=== PATIENT | male | born 1955 | race Caucasian/White ===

== ENCOUNTER 2017-06-13 10:43 | Day surgery (SDC) | payer MEDICARE, MEDICAID, SELFPAY ==
--- NOTE | 2017-06-13 | EGD_PTH ---
PATIENT: PAULA YUSUF LOC: EN U#:[id number] AGE/SX: 62/M ROOM: RE06/13/[address]: Dr. Steven Hansen MD : 1955 BED: DIS: 06/13/2017 SPEC #: [id number] RECD: 06/13/17 14:57 STATUS: CHANDANA ELIDIA #: [id number] JONY: 06/13/17 00:[address]: Steven Hansen DEPT: SURGICAL PATHOLOGY RECD BY: Vick Man ENTERED: 06/13/17 14:57 SP TYPE: EGD BIOPSY OT DR: Dr. Antoinette Pringle, DO Tissues: A - Duodenum, NOS B - Gastric mucous membrane C - Gastric mucous membrane D - Esophageal mucous membrane Procedures: Special Stain Group I Surgery Specimen Level IV GMS Stain (control) HEADER OPERATION: EGD with biopsy PRE-OP DIAGNOSIS: Weight loss, vomiting, anemia TISSUE SUBMITTED: A ? Duodenal biopsy, B ? Antral biopsy, C ? GE junction biopsy, D ? Mid esophagus biopsy MICROSCOPIC DIAGNOSIS A. Duodenal biopsy: Fragments of small intestinal mucosa, no pathologic diagnosis. B. Antral biopsy: Chronic active gastritis. See comment. C. GE junction, biopsy: Fragments of squamous epithelium, no pathologic diagnosis. D. Mid esophagus, biopsy: Fragments of squamous epithelium with acute inflammation. Special stain for fungi is negative for organisms; matched control is appropriate. SJ:saranya 06/14/17 COMMENT B. The results of immunohistochemistry for Helicobacter pylori will be reported separately ([id number]). MICROSCOPIC DESCRIPTION Slides are reviewed. GROSS DESCRIPTION A - Received in fixative is one container labeled with the patient's name and designated duodenal biopsy. The specimen consists of two irregular fragments of light camargo soft tissue that in aggregate measure 0.5 x 0.3 x . cm. The specimen is totally submitted in one cassette. B - Received in fixative is one container labeled with the patient's name and designated antral biopsy. The specimen consists of one irregular fragment of light camargo soft tissue that measures 0.3 x 0.3 x 0.1 cm. The specimen is totally submitted in one cassette. C - Received in fixative is one container labeled with the patient's name and designated GE junction biopsy. The specimen consists of two irregular fragments of light camargo soft tissue that in aggregate measure 0.5 x 0.2 x 0.1 cm. The specimen is totally submitted in one cassette. D - Received in fixative is one container labeled with the patient's name and designated mid esophagus biopsy. The specimen consists of two irregular fragments of light camargo soft tissue that in aggregate measure 0.5 x 0.3 x 0.1 cm. The specimen is totally submitted in one cassette. / SJ:rg 06/13/17 TC:2 CPT: 23887 x4, 81991
--- NOTE | 2017-06-13 | IMM_PTH ---
PATIENT: PAULA YUSUF LOC: EN U#:[id number] AGE/SX: 62/M ROOM: RE06/13/[address]: Dr. Steven Hansen MD : 1955 BED: DIS: 06/13/2017 SPEC #: [id number] RECD: 06/14/17 10:56 STATUS: CHANDANA REQ #: [id number] JONY: 06/13/17 00:[address]: Steven Hansen DEPT: IMMUNOHISTOCHEMISTRY RECD BY: Sandee Godfrey ENTERED: 06/14/17 10:57 SP TYPE: IMMUNO OTHR DR: Dr. Antoinette Pringle, DO Tissues: B - Stomach, NOS Procedures: H Pylori (initial) PHYSICIAN & INSTITUTION [place] [address] SPECIMEN INFORMATION: Tissue Source: B ? Antral biopsy Clinical Info: Weight loss, vomiting, anemia Specimen Number: [id number] CPT code: 76379 METHODOLOGY: Deparaffinized sections of prefer/formalin-fixed tissue or PAP/DQ stained slides are incubated with monoclonal/polyclonal antibodies/oligonucleotide probes. Localization is made via biotin free immunoperoxidase method. Appropriate controls are performed and reacted as expected. Results on target cell population are indicated in the following table: RESULTS: ANTIBODY / CLONE RESULT Block B H Pylori (polyclonal) negative These tests were developed and their performance characteristics determined by [facility]. They may not have been cleared or approved by the [place]. Food and Drug Administration. The FDA has determined that such clearance or approval is not necessary. INTERPRETATION: B. Antral biopsy: Negative for Helicobacter pylori organisms. SJ:saranya 06/17/17
[2017-06-13 11:07] VITALS: BP 108/74; PULSE 79; RESP 18; TEMP 36.6; O2SAT 100; BMI 24.0
[2017-06-13 12:29] VITALS: BP 108/74; BP 96/64; PULSE 78; RESP 16; TEMP 37.2; O2SAT 98
[2017-06-13 12:35] VITALS: BP 108/74; BP 93/62; PULSE 76; RESP 18; O2SAT 98
[2017-06-13 12:40] VITALS: BP 108/74; BP 97/72; PULSE 80; RESP 18; O2SAT 99
[2017-06-13 12:45] VITALS: BP 108/74; BP 99/70; PULSE 81; RESP 18; TEMP 37.3; O2SAT 99
[2017-06-13 12:52] LABS: Absolute Lymphocyte Count 0.59 X10^3/ul (0.83-4.51); Absolute Neutrophil Count 7.6 X10^3/uL (2.0-7.7); Basophil# 0.06 X10^3/uL; Basophil% 0.7 % (0-1); Eosinophil# 0.01 X10^3/uL; Eosinophils% 0.1 % (0-5); Hematocrit 33.9 % (40-54); Hemoglobin 11.7 g/dl (13.0-16.5); Lymphocyte # 0.59 X10^3/ul (4.0); Lymphocyte % 6.4 % (19-41); Mean Corp Hgb Conc 34.5 g/gl (32-36); Mean Corpuscular Hgb 32.8 pg (27.0-32.0); Mean Platelet Vol. 8.9 fl (6.2-12.0); Monocyte# 0.89 X10^3/uL; Monocyte% 9.7 % (0-10); Neutrophil # 7.61 X10^3/uL (2.7-7.7); Neutrophil % 82.9 % (47-70); Platelet Count 418 K/mm3 (150-450); RBC Distribution Width CV 15.9 % (11.6-14.6); RBC Distribution Width SD 52.6 fl (35.1-43.9); Red Blood Count 3.57 M/mm3 (4.6-6.2); White Blood Count 9.2 K/mm3 (4.4-11.0)
[2017-06-13 12:55] LABS: Differential Indicated SCAN CRITERIA MET; POSITIVE COUNT NO; POSITIVE DIFFERENTIAL YES; POSITIVE MORPHOLOGY NO
--- NOTE | 2017-06-13 13:08 | OP.PCM_ITS ---
Report of Operation Date of Procedure: 06/13/17 Pre-Operative Diagnosis: vomiting, weight loss Post-Operative Diagnosis: mild gastritis, otherwise normal, normal colonoscopy Surgery/Procedure Performed:: EGD with biopsy, colonoscopy music library assistant: None Type of Anesthesia:: MAC Specimen's removed: jejunum, gastric, distal esophagus, mild esophagus Description of Procedure: The patient was brought to the endoscopy suite. Sign in was performed verifying patient, site, planned procedure, critical nursing information, the patient was monitored with cardiac, pulse oximetric, and blood pressure monitoring devices. Monitored anesthetic care was provided for sedation. Following IV sedation and after the oropharynx was sprayed with Cetacaine spray , a video gastroscope was inserted in the oropharynx and advanced down the esophagus without difficulty. The scope was advanced through the stomach, through the pylorus through the duodenum to the proximal jejunum. the jejunum was unremarkable. Biopsies obtained to evaluate for the possibility of celiac disease. The duodenum was unremarkable. The stomach demonstrated mild gastritis. Biopsies were obtained for H. pylori and pathology area as the scope was withdrawn, the GE junction appeared unremarkable. The mid esophagus was unremarkable. Biopsies obtained to rule out eosinophilic esophagitis. The patient was positioned for colonoscopy. A digital rectal exam was performed which revealed stool in the vault The video colonoscope was inserted and advanced to the cecum as verified by the ileocecal valve, cecal base anatomic features and palpation. there was actually some liquid stool throughout which made complete visualization impaired , but overall there were no colonic abnormalities noted. The video colonoscope was retroflexed and this appeared unremarkable. The patient tolerated the procedure well and was brought to recovery in stable condition
[2017-06-13 13:17] VITALS: BP 108/74
[2017-06-13 13:19] LABS: ALB/GLOB Ratio 0.7 RATIO (0.9-2.4); AST(SGOT) 17 U/L (15-37); Alanine Aminotransfer ALT/SGPT 13 U/L (16-61); Albumin, Serum 2.6 g/dL (3.2-5.0); Alkaline Phosphatase 84 U/L (45-117); Anion Gap 8 (5-15); BUN 14 mg/dL (7-18); BUN/Creat Ratio 14.8 RATIO (10-20); Calcium,Total 8.2 mg/dL (8.5-10.1); Chloride 98 mmol/L (98-107); Creatinine, Serum 0.94 mg/dL (0.70-1.30); EST Glomerular Filtration Rate 87 mL/min (>60); Est Glom Filt Rate - Afr Amer 105 mL/min (>60); Estimated Creatinine Clearance 55.56 ml/min; Globulin 3.7 g/dL (2.2-4.2); Glucose 88 mg/dL (74-106); Potassium 3.8 mmol/L (3.5-5.1); Protein, Total 6.3 g/dL (6.4-8.2); Sodium Level 136 mmol/L (136-145)
== END 2017-06-13 13:23 | disposition home or self-care (01) ==
LOC: EN 10:45 → AC 10:46
PROVIDERS: Family Provider Family Medicine; PCP Family Medicine; Visit Provider Surgery
PROC: 0DJD8ZZ Inspection of Lower Intestinal Tract, Via Natural or Artificial Opening Endoscopic (ICD-10-PCS; CPT 45378; principal; 2017-06-13 11:55)
DX: K29.50 Unspecified chronic gastritis without bleeding (principal); R63.4 Abnormal weight loss; Z68.23 Body mass index [BMI] 23.0-23.9, adult; R19.7 Diarrhea, unspecified; E78.5 Hyperlipidemia, unspecified; E03.9 Hypothyroidism, unspecified; Q90.9 Down syndrome, unspecified; Z86.73 Personal history of transient ischemic attack (TIA), and cerebral infarction without residual deficits; Z79.82 Long term (current) use of aspirin; Z79.899 Other long term (current) drug therapy
CPT/HCPCS: 43239; 45378; 36415; 80053; 85025; 88305; 88312; 88342; J7120

== ENCOUNTER → 2017-06-14 14:46 | Outpatient (CLI) | payer MEDICARE, MEDICAID, SELFPAY ==
--- NOTE | 2017-06-14 14:48 | CT_ITS ---
STUDY: CT ABDOMEN AND PELVIS WITH CONTRAST REASON FOR EXAM: Male, 62 years old. Abdominal pain. 24 hours postcolonoscopy. RADIATION DOSAGE (If Supplied By Facility): CTDIvol = ( 18.45 ) mGy, DLP = ( 391.71 ) mGycm TECHNIQUE: Transaxial images were obtained from the dome of the diaphragm to the symphysis pubis with oral contrast. 100 ml of Isovue 300 contrast was administered. Sagittal and coronal images were reconstructed. Individualized dose optimization techniques were used for this CT. COMPARISON: Comparison is made with prior examination dated November 06, 2013. FINDINGS: Minimal scarring at the lung bases. The visualized portions of the heart are within normal limits. Minimal degree of central intrahepatic biliary ductal dilatation. Normal gallbladder and extrahepatic biliary system. Normal spleen. Normal pancreas. Normal bilateral adrenal glands. Normal right kidney. 4.4 cm cyst in the mid lateral portion of the left kidney. Normal visualized stomach. Dilated fluid-filled small bowel loops. There is evidence of a long segment of intussusception of the ileum in the left lower quadrant with a thickened bowel wall. The colon is decompressed. There is non-visualization of the appendix. Small lymph nodes are seen in the root of the mesentery. Normal abdominal aorta. Normal inferior vena cava. Normal retroperitoneum. Mild thickening of the urinary bladder wall. Prostatic enlargement with indentation at the bladder base. Small amount of free fluid in the pelvis. Focal calcifications within the penis suggestive of pulmonary disease. There is evidence of prior repair of the inguinal hernias bilaterally with a mesh. There are diffuse degenerative changes of the visualized lumbar spine. Grade 2 anterolisthesis of L5 on S1 with spondylolysis of the pars interarticularis. 50% loss of height of the superior endplate of the L5 vertebrae. Levoscoliosis. CT/Abdomen/Pelvis WITH Contrast IMPRESSION: Dilated and fluid-filled small bowel loops with a long segment of intussusception and thickened wall of the small bowel in the left lower quadrant in the ileum. Small amount of free fluid in the pelvis. The colon is decompressed. N.B. : The above information has been verbally conveyed by Haile Cho MD to Dr Presley, Covering Physician, on 06/14/2017 15:53:55 (ET). Electronically Signed: Haile Cho MD at 15:43 EST Tel [phone], Service support , N.B. : The above information has been verbally conveyed by Haile Cho MD to Dr Presley, Covering Physician, on 06/14/2017 15:53:55 (ET).
[2017-06-14 16:39] LABS: Absolute Lymphocyte Count 0.81 X10^3/ul (0.83-4.51); Absolute Neutrophil Count 4.7 X10^3/uL (2.0-7.7); Basophil# 0.06 X10^3/uL; Basophil% 0.9 % (0-1); Eosinophil# 0.05 X10^3/uL; Eosinophils% 0.8 % (0-5); Hemoglobin 12.9 g/dl (13.0-16.5); Lymphocyte # 0.81 X10^3/ul (4.0); Lymphocyte % 12.8 % (19-41); Mean Corp Hgb Conc 33.1 g/gl (32-36); Mean Corpuscular Hgb 31.7 pg (27.0-32.0); Mean Corpuscular Volume 95.8 fL (80-94); Mean Platelet Vol. 9.2 fl (6.2-12.0); Monocyte# 0.68 X10^3/uL; Monocyte% 10.8 % (0-10); Neutrophil % 74.4 % (47-70); Platelet Count 471 K/mm3 (150-450); RBC Distribution Width CV 15.5 % (11.6-14.6); RBC Distribution Width SD 54.1 fl (35.1-43.9); Red Blood Count 4.07 M/mm3 (4.6-6.2); White Blood Count 6.3 K/mm3 (4.4-11.0)
[2017-06-14 16:40] LABS: POSITIVE COUNT NO; POSITIVE DIFFERENTIAL NO; POSITIVE MORPHOLOGY NO
[2017-06-14 17:27] LABS: Vitamin B12 605 pg/mL (211-911)
[2017-06-14 17:28] LABS: Hemoglobin A1c 5.8 % (4.2-6.3)
[2017-06-14 18:17] LABS: ALB/GLOB Ratio 0.7 RATIO (0.9-2.4); AST(SGOT) 15 U/L (15-37); Alanine Aminotransfer ALT/SGPT 16 U/L (16-61); Alkaline Phosphatase 94 U/L (45-117); Anion Gap 8 (5-15); BUN 9 mg/dL (7-18); BUN/Creat Ratio 11.1 RATIO (10-20); Calcium,Total 8.3 mg/dL (8.5-10.1); Chloride 93 mmol/L (98-107); Cholesterol 110 mg/dL (200); Creatinine, Serum 0.81 mg/dL (0.70-1.30); EST Glomerular Filtration Rate 103 mL/min (>60); Est Glom Filt Rate - Afr Amer 125 mL/min (>60); Globulin 4.3 g/dL (2.2-4.2); Glucose 86 mg/dL (74-106); High Density Lipoprotein 56 mg/dL; Potassium 3.5 mmol/L (3.5-5.1); Protein, Total 7.3 g/dL (6.4-8.2); Sodium Level 131 mmol/L (136-145); Triglycerides 73 mg/dL; Very Low Density Lipoprotein 15 mg/dL (5-40)
== END ==
PROVIDERS: Family Provider Family Medicine; PCP Family Medicine; Visit Provider Surgery
DX: Z00.00 Encounter for general adult medical examination without abnormal findings (principal); Z13.89 Encounter for screening for other disorder; R10.9 Unspecified abdominal pain; R63.4 Abnormal weight loss; R79.89 Other specified abnormal findings of blood chemistry; R11.2 Nausea with vomiting, unspecified; R19.7 Diarrhea, unspecified; E03.9 Hypothyroidism, unspecified; E78.2 Mixed hyperlipidemia
CPT/HCPCS: 36415; 74177; 80053; 80061; 82607; 82746; 83036; 84443; 85025; Q9967

== ENCOUNTER 2017-06-19 10:51 | Inpatient (IN) | payer MEDICARE, MEDICAID, SELFPAY ==
[2017-06-19] VITALS (13 sets, daily range): BP systolic 87–127; BP diastolic 7–86; PULSE 77–93; RESP 12–18; TEMP 36.2–36.6; O2SAT 97–100; BMI 24.4; BMI 25.8
--- NOTE | 2017-06-19 | COL_PTH ---
PATIENT: PAULA YUSUF LOC: MS3 U#:[id number] AGE/SX: 62/M [place]OM: [facility] [place] RE06/19/[address]: Dr. Antionette Presley MD : 1955 BED: 1 DIS: 06/24/2017 SPEC #: [id number] RECD: 06/19/17 18:08 STATUS: CHANDANA REGracia #: [id number] JONY: 06/19/17 00:[address]: Antionette Presley DEPT: SURGICAL PATHOLOGY RECD BY: Vick Man ENTERED: 06/20/17 11:10 SP TYPE: COLON OTHR DR: Dr. Antoinette Pringle, DO Tissues: Small intestine biopsy Procedures: Surgery Specimen Level III Surgery Specimen Level V HEADER OPERATION: Exploratory laparotomy, small bowel resection PRE-OP DIAGNOSIS: Small bowel obstruction; intussusception TISSUE SUBMITTED: Small bowel MICROSCOPIC DIAGNOSIS Small bowel, segmental resection: A benign polyp with extensive ulceration with associated acute inflammation and granulation tissue reaction. Small bowel donut, no pathologic diagnosis. See comment. CEDRICK:saranya 06/24/17 COMMENT The polyp consists of full thickness of bowel wall. This area may represent clinically suspected chronic intussusception. Correlation with clinical findings and appropriate follow up are necessary. MICROSCOPIC DESCRIPTION Slides are reviewed. GROSS DESCRIPTION Received in fixative is one container labeled with the patient's name and designated small bowel. The specimen consists of a segment of bowel measuring 8 cm in length and up to 5 cm in diameter. The serosa is camargo, glistening. Both resection margins are stapled. 2 cm away from one resection margin, the serosa is focally puckered. Corresponding to the puckered serosal area and 2.5 cm away from the margin, there is a camargo-pink polyp measuring 3.5 x 3 x 2.5 cm. More dictation will follow after overnight fixation. / CEDRICK:saranya 06/20/17 Also present in the container is a donut-shaped piece of tissue measuring 2 x 2 x 0.5 cm. Multiple ben are noted. Sections of the polyp reveal solid cut surfaces. No other lesion is identified. A focal area shows thickened bowel wall measuring up to 1 cm in thickness. Imagery Analyst sections are submitted in 12 cassettes as follows: 1 ? donut-shaped piece of tissue, 2 ? resection margin (the resection margin closer to the polyp is inked black), 3-11 ? polyp with underlying bowel wall (cassettes 3-6 contain the underlying bowel wall), 12 ? junior sales representative section of bowel wall with thickened bowel wall area. / CEDRICK:saranya 06/21/17 TC:5 CPT: 47590, 15915
--- NOTE | 2017-06-19 11:16 | CT_ITS ---
STUDY: CT ABDOMEN AND PELVIS WITH CONTRAST REASON FOR EXAM: Male, 62 years old. Abdominal pain. Bowel distention. RADIATION DOSAGE (If Supplied By Facility): CTDIvol = ( 9.58 ) mGy, DLP = ( 434.41 ) mGycm TECHNIQUE: Transaxial images were obtained from the dome of the diaphragm to the symphysis pubis with oral contrast. 100mL ml of Isovue 300 contrast was administered. Sagittal and coronal images were reconstructed. Individualized dose optimization techniques were used for this CT. COMPARISON: Comparison is made with prior study dated June 14, 2017. FINDINGS: Mild degree of increased markings at the lung bases suggestive of scarring. The visualized portions of the heart are within normal limits. Stable mild degree of central intrahepatic biliary ductal dilatation. Normal gallbladder and extrahepatic biliary system. Normal spleen. Normal pancreas. Normal bilateral adrenal glands. Normal right kidney. Stable 4.1 cm cyst in the mid lateral portion of the left kidney. Gastric distention due to fluid and oral contrast. Marked degree of small bowel dilatation containing air-fluid levels. This has progressed as compared to prior study. The previously seen area of concern of intussusception in the ilium is now in the right lower quadrant suggestive of progression into the distal ileum. There is evidence of intussusception of the vascular structures within the mesentery of the small bowel. There is a mild degree of bowel wall thickening suggestive of possible venous insufficiency. Normal colon. The appendix is visualized and appears normal. Normal abdominal aorta. Normal inferior vena cava. Normal retroperitoneum. Normal urinary bladder. A small amount of fluid is seen in the cul-de-sac. Normal abdominal wall. Stable grade 2 anterolisthesis of L5 on S1 with spondylolysis. Loss of height of the superior endplate of the L5 vertebrae. Levoscoliosis. CT/Abdomen/Pelvis WITH Contrast IMPRESSION: Worsening small bowel obstruction most likely secondary to intussusception of the distal ilial loop. Mild degree of small bowel wall thickening of the intussusception. Vascular compromise should be ruled out. Small amount of free fluid is seen in the cul-de-sac. N.B. : The above information has been verbally conveyed by Haile Cho MD to Vivian Zelaya, Referring Physician, on 06/19/2017 14:11:48 (ET). Electronically Signed: Haile Cho MD at 14:12 EST Tel [phone], Service support , N.B. : The above information has been verbally conveyed by Haile Cho MD to Vivian Zelaya, Referring Physician, on 06/19/2017 14:11:48 (ET).
[2017-06-19] MEDS: 0.9% Normal Saline 1,000 ML 150 ML IV ×2 (11:53→21:03)
[2017-06-19 12:53] LABS: Absolute Lymphocyte Count 0.66 X10^3/ul (0.83-4.51); Basophil# 0.05 X10^3/uL; Basophil% 0.6 % (0-1); Eosinophil# 0.03 X10^3/uL; Eosinophils% 0.4 % (0-5); Hematocrit 38.3 % (40-54); Hemoglobin 12.9 g/dl (13.0-16.5); Lymphocyte # 0.66 X10^3/ul (4.0); Lymphocyte % 7.8 % (19-41); Mean Corp Hgb Conc 33.7 g/gl (32-36); Mean Platelet Vol. 8.7 fl (6.2-12.0); Monocyte# 0.69 X10^3/uL; Monocyte% 8.2 % (0-10); Neutrophil # 6.99 X10^3/uL (2.7-7.7); Neutrophil % 82.5 % (47-70); Platelet Count 500 K/mm3 (150-450); RBC Distribution Width CV 15.8 % (11.6-14.6); RBC Distribution Width SD 53.2 fl (35.1-43.9); Red Blood Count 4.03 M/mm3 (4.6-6.2); White Blood Count 8.5 K/mm3 (4.4-11.0)
[2017-06-19] MEDS: Ondansetron 4 MG/2 ML Vial IV (12:56)
[2017-06-19 12:57] LABS: POSITIVE COUNT NO; POSITIVE DIFFERENTIAL NO; POSITIVE MORPHOLOGY NO
[2017-06-19 13:05] LABS: AST(SGOT) 18 U/L (15-37); Alanine Aminotransfer ALT/SGPT 18 U/L (16-61); Alkaline Phosphatase 93 U/L (45-117); Anion Gap 7 (5-15); BUN 13 mg/dL (7-18); BUN/Creat Ratio 13.9 RATIO (10-20); Bilirubin, Direct 0.11 mg/dL (0.00-0.30); Calcium,Total 8.4 mg/dL (8.5-10.1); Chloride 97 mmol/L (98-107); Creatinine, Serum 0.93 mg/dL (0.70-1.30); EST Glomerular Filtration Rate 88 mL/min (>60); Est Glom Filt Rate - Afr Amer 106 mL/min (>60); Globulin 4.2 g/dL (2.2-4.2); Glucose 106 mg/dL (74-106); Lipase 393 U/L (73-393); Potassium 3.5 mmol/L (3.5-5.1); Protein, Total 7.2 g/dL (6.4-8.2); Sodium Level 137 mmol/L (136-145)
--- NOTE | 2017-06-19 15:09 | NURSING ---
302 BOWEL OBSTRUCTION, INTUSSESCPTION GENTILE
--- NOTE | 2017-06-19 16:04 | PCM.HP.BLA ---
History and Physical Date of Admission: 06/19/17 Chief Complaint: abdominal pain as reported by patient's hat renovator, abnormal CT scan History of Present Illness: 62 y/o WM with Down's syndrome and poor communication presents with history of anorexia since March of 2017. Recently underwent endoscopy by Dr. Hansen last week. Abnormal findings of CT scan noted on Saturday, however, patient clinically had no changes. I discussed with patient's powerhouse electrician apprentice - he lives in a correction - [facility] and she stated that the patient was OK on Saturday - I told her to contact me or go to nearest ED if clinically worsens. Xochitl states that patient today did not want to eat or drink at all today and had abdominal pain. He was brought to ED. CT scan reveals worsening of intussusception and further signs of bowel obstruction. Past Medical History: Down's syndrome hyperlipidemia hypothyroidism History of CVA Past Surgical History: laparoscopic ventral hernia repair and bilateral inguinal hernia repairs with mesh colonoscopy Medications: buspirone prilosec mvi zofran nizoral aspirin levothyroxine pravachol prozac Allergies: Has no known drug allergies Social history: TOB use denies lives in correction niece is POA Review of Systems: patient unable to give ROS due to Down's syndrome Physical examination: Vital signs Temp 97.8F RR 12 BP 107/71 HR 78 General WD/WN WM in no apparent distress, alert HEENT Normocephalic. EOM intact with sclera clear and no icterus noted. Neck is supple with no jugular venous distention noted. Trachea is midline. Lungs clear to auscultation. normal breath sounds in all lung shipley. No rales/rhonchi/wheezing noted. No labored breathing noted, such as retractions. Heart normal S1 and S2 auscultated. No rubs/clicks/murmurs noted. Normal size and location by auscultation. Abdomen grossly distended with visible dilated bowel loops noted, no rigidity, no bowel sounds Extremities no calf tenderness noted. No pitting edema noted. . Genitourinary/Rectal deferred Skin normal skin integrity. Neurological no focal deficits, Down's. Psychological patient is calm and appropriate, smiling Impression: bowel obstruction, intussusception Discussion/Plan: I have discussed the above with patient's hat renovator, Melissa Higgins and also his niece, Renetta Lau, who is his power of trade mark attorney. I have offered the patient the procedure of exploratory laparotomy, bowel resection. I have explained the procedure to the patient. I have counseled the patient's power of trade mark attorney, as to the risks of the procedure, including but not limited to: infection, bleeding, injury to any blood vessels/nerves, scar tissue, injury to any intraabdominal organs, injury to kidney/ureters, injury to bowel/bladder, intraabdominal abscess/bleeding, hernias at incisional sites, wound infections, possible open procedure, complications of anesthesia, postoperative pneumonia/cardiac problems/blood clots etc. she understands. Renetta gives her verbal consent to proceed. I have answered all questions to the patients satisfaction and the patient has no further questions.
--- NOTE | 2017-06-19 16:16 | HP.PCM_ITS ---
History and Physical Date of Admission: 06/19/17 Chief Complaint: abdominal pain as reported by patient's tail sawyer, abnormal CT scan History of Present Illness: 62 y/o WM with Down's syndrome and poor communication presents with history of anorexia since March of 2017. Recently underwent endoscopy by Dr. Hansen last week. Abnormal findings of CT scan noted on Saturday, however, patient clinically had no changes. I discussed with patient's packing house supervisor - he lives in a correction - [place] [facility] and she stated that the patient was OK on Saturday - I told her to contact me or go to nearest ED if clinically worsens. Xochitl states that patient today did not want to eat or drink at all today and had abdominal pain. He was brought to ED. CT scan reveals worsening of intussusception and further signs of bowel obstruction. Past Medical History: Down's syndrome hyperlipidemia hypothyroidism History of CVA Past Surgical History: laparoscopic ventral hernia repair and bilateral inguinal hernia repairs with mesh colonoscopy Medications: buspirone prilosec mvi zofran nizoral aspirin levothyroxine pravachol prozac Allergies: Has no known drug allergies Social history: TOB use denies lives in correction niece is POA Review of Systems: patient unable to give ROS due to Down's syndrome Physical examination: Vital signs Temp 97.8F RR 12 BP 107/71 HR 78 General WD/WN WM in no apparent distress, alert HEENT Normocephalic. EOM intact with sclera clear and no icterus noted. Neck is supple with no jugular venous distention noted. Trachea is midline. Lungs clear to auscultation. normal breath sounds in all lung shipley. No rales/rhonchi/wheezing noted. No labored breathing noted, such as retractions. Heart normal S1 and S2 auscultated. No rubs/clicks/murmurs noted. Normal size and location by auscultation. Abdomen grossly distended with visible dilated bowel loops noted, no rigidity, no bowel sounds Extremities no calf tenderness noted. No pitting edema noted. . Genitourinary/Rectal deferred Skin normal skin integrity. Neurological no focal deficits, Down's. Psychological patient is calm and appropriate, smiling Impression: bowel obstruction, intussusception Discussion/Plan: I have discussed the above with patient's tail sawyer, Melissa Higgins and also his niece, Renetta Lau, who is his power of first aid teacher. I have offered the patient the procedure of exploratory laparotomy, bowel resection. I have explained the procedure to the patient. I have counseled the patient's power of first aid teacher, as to the risks of the procedure, including but not limited to: infection, bleeding, injury to any blood vessels/nerves, scar tissue, injury to any intraabdominal organs, injury to kidney/ureters, injury to bowel/bladder, intraabdominal abscess/bleeding, hernias at incisional sites, wound infections, possible open procedure, complications of anesthesia, postoperative pneumonia/cardiac problems/blood clots etc. she understands. Renetta gives her verbal consent to proceed. I have answered all questions to the patient?s satisfaction and the patient has no further questions.
--- NOTE | 2017-06-19 16:29 | ED.VISSUMM ---
- ER Visit Summary Date of Service: 06/19/17 Chief Complaint: Weakness, Refusing to eat History of Present Illness: The patient is a 62 M with a history of down syndrome and dementia. Patient was brought in from a intermediate with a 2 month decline and weight loss. Patient was seen last week for colonoscopy and EGD. He had a outpatient CAT scan performed as well. jail staff reports that he has been sleeping more and does not want to eat or drink. He is passing liquid stool. They have not noted a fever. Physical Examination: Vital signs are unremarkable. Head and neck examination is normal. Heart is regular rate and rhythm. Lung sounds are clear. Abdomen is distended and tender with guarding. He has hypoactive bowel sounds. Patient is alert and appropriate. Test Results: Patient has a normal white count with a hemoglobin of 12.9. Chemistry studies reveal bicarb of 33. LFTs and lipase are normal. Emergency Department Course and Treatment: I was able to review the patient's prior CT scan from last week. Impression on that study indicates dilated and fluid-filled small bowel loops with a long segment of intussusception and thickened wall the small bowel in the left lower quadrant. It was reportedly discussed with Dr. Presley. I spoke with Dr. Presley just after I saw the patient. CT findings last week were felt to be secondary to rapid transit time of material through the colon. I was asked a repeat CT scan with contrast. Repeat CT today reveals worsening small bowel obstruction most likely secondary to intussusception of the distal ileal loop. There is mild bowel wall thickening of intussusception and vascular compromise should be ruled out. Findings were discussed with Dr. Presley who reviewed the images. She asked that a lactate be sent and an NG tube be placed. Patient was given a dose of Zosyn. She will plan on taking the patient to the operating room later today. This was discussed with the caregiver from the intermediate at bedside as well as the patient's guardian, his niece over the phone. Treatment Plan: [] Disposition: Admit Impression: Small bowel obstruction secondary to intussusception This note was generated with Modbookation software. It may contain incorrect words, spelling, and punctuation that were not noted in review of the chart prior to signing ED Disposition - Plan for ED Patient: Chief Complaint: General Illness
--- NOTE | 2017-06-19 16:35 | ED.DCSUM_ITS ---
- ER Visit Summary Date of Service: 06/19/17 Chief Complaint: Weakness, Refusing to eat History of Present Illness: The patient is a 62 M with a history of down syndrome and dementia. Patient was brought in from a [place] [facility] with a 2 month decline and weight loss. Patient was seen last week for colonoscopy and EGD. He had a outpatient CAT scan performed as well. senior living staff reports that he has been sleeping more and does not want to eat or drink. He is passing liquid stool. They have not noted a fever. Physical Examination: Vital signs are unremarkable. Head and neck examination is normal. Heart is regular rate and rhythm. Lung sounds are clear. Abdomen is distended and tender with guarding. He has hypoactive bowel sounds. Patient is alert and appropriate. Test Results: Patient has a normal white count with a hemoglobin of 12.9. Chemistry studies reveal bicarb of 33. LFTs and lipase are normal. Emergency Department Course and Treatment: I was able to review the patient's prior CT scan from last week. Impression on that study indicates dilated and fluid-filled small bowel loops with a long segment of intussusception and thickened wall the small bowel in the left lower quadrant. It was reportedly discussed with Dr. Presley. I spoke with Dr. Presley just after I saw the patient. CT findings last week were felt to be secondary to rapid transit time of material through the colon. I was asked a repeat CT scan with contrast. Repeat CT today reveals worsening small bowel obstruction most likely secondary to intussusception of the distal ileal loop. There is mild bowel wall thickening of intussusception and vascular compromise should be ruled out. Findings were discussed with Dr. Presley who reviewed the images. She asked that a lactate be sent and an NG tube be placed. Patient was given a dose of Zosyn. She will plan on taking the patient to the operating room later today. This was discussed with the caregiver from the [place] [facility] at bedside as well as the patient's guardian, his niece over the phone. Treatment Plan: [] Disposition: Admit Impression: Small bowel obstruction secondary to intussusception This note was generated with VIRxSYSation software. It may contain incorrect words, spelling, and punctuation that were not noted in review of the chart prior to signing ED Disposition - Plan for ED Patient: Chief Complaint: General Illness
[2017-06-19] MEDS: Bupivacaine 0.25% 30 ML Vial (17:55)
--- NOTE | 2017-06-19 18:03 | PCM.IMDPSTOP ---
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
--- NOTE | 2017-06-19 18:06 | OP.PN_ITS ---
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
--- NOTE | 2017-06-19 18:13 | OP.PCM_ITS ---
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 Appropriate time out protocol was followed. The patient was then placed under anesthesia. The abdomen was then prepped with a sterile surgical skin preparation. Sterile surgical drapes were placed. This skin and subcutaneous tissues were then widely infiltrated with the local anesthetic. A midline skin incision was made with a 10 blade scalpel. It was carried down to the subcutaneous tissues using sharp dissection. The fascia was carefully opened, avoiding any injury to the intraabdominal contents. There were omental adhesions that were taken down by sharp dissection. Any hemorrhage was controlled with electrocautery. The small bowel was distended. The intussuscepted small bowel was brought up out of the wound. There was no evidence of gangrene. No evidence of perforation. It was able to be partially reduced. There was a segment of scarred tissue small bowel that was the probable cause of the intussusception. To prevent further recurrence, it was resected in the following fashion. A point proximal and distal to the scarred small bowel was chosen for resection. A linear gastrointestinal stapling device was fired across the chosen locations. The mesentery was then clamped and ligated with vicryl suture and then transected. The small bowel segment was then placed in formalin to be sent to pathology for analysis. The antimesenteric corners of the stapled ends of the small bowel were then transected and a limb of the linear gastrointestinla stapling device was placed in each opening. The bowel ends were then placed side by side and the stapling device was fired. This created a side to side functional end to end anastomosis. A 60 mm TA stapling device was then fired across the opening for complete closure. There were a few bleeding sites on the transected end of the bowel and this was controlled with figure of 8 vicryl sutures. A vicryl suture was placed at the proximal staple line of the side to side anastomosis. The anastomosis was carefully checked - it was widely patent. No evidence of bowel leak or bleeding was noted. The small intestine was placed back into the intraabdominal cavity. The abdomen was vigorously irrigated with normal saline and all irrigation was aspirated out. The fascia was then reapproximated with running #1 Prolene suture. The wound was irrigated with betadyne. The skin was reapproximated with vicryl suture in a running fashion. Cavilon and steristrips were placed to reinforce the skin closure and a sterile opsite dressing was applied. The patient was brought from to the Recovery Room in stable condition. - Complications none noted - Admit VTE Documentation VTE Present on Admission: Yes VTE Mechan Device Prophylaxis: SCD's
[2017-06-20] VITALS (8 sets, daily range): BP systolic 92–103; BP diastolic 53–68; PULSE 87–101; RESP 16–18; TEMP 36.4–37; O2SAT 92–96
[2017-06-20] MEDS: 0.9% Normal Saline 1,000 ML 150 ML IV ×3 (03:44→17:16)
[2017-06-20] MEDS: Levothyroxine 100 MCG Tablet PO (07:00)
[2017-06-20] MEDS: HYDROcodone Bitartrate/Apap 5/325 Tablet PO (08:38)
--- NOTE | 2017-06-20 09:10 | CASEMGMT ---
Social Work Note Placed call to pt's Renetta HEMPHILL, and left vm requesting a return phone call. SW to continue to follow and assist with discharge planning. Plan: Retirement Cori Evans MSW, BEHAVIORAL SCIENTIST
--- NOTE | 2017-06-20 10:09 | CASEMGMT ---
Chart Review: LAWRENCE Strata 1 62 y/o with Down's syndrome presents with history of anorexia since March of 2017. Recently underwent endoscopy by Dr. Hansen last week. Abnormal findings of CT scan noted on Saturday, however, patient clinically had no changes. Dr. Presley discussed with patient's warehouse examiner - he lives in a half-way - [facility] and she stated that the patient was OK on Saturday. Xochitl was instructed to notify Dr. Presley or go to the nearest ED should symptoms worsen. Xochitl states that patient today did not want to eat or drink at all today and had abdominal pain. He was brought to ED. CT scan revealed worsening of intussusception and further signs of bowel obstruction. Patient was admitted and taken to surgery for ex lap with bowel resection. Past medical history includes Down's Syndrome, CVA, HLD, hypothyroid; Past sx hx includes l/s ventral hernia repair, bilateral inguinal hernia repair, and colonoscopy. Anticipate patient will be able to return to half-way at discharge. Social Work following for final dispo. RN CM will continue to follow patient's hospital course and will provide case management interventions should needs arise. Disposition Plan: Return to [facility], RN-BC, CCM
--- NOTE | 2017-06-20 11:36 | PCM.PN.SRG ---
Subjective: patient does not complain of pain, but in obvious pain with movement, communication is poor due to Down's - Physical Exam General: Alert Oral: - - still slightly tacky - patient came in dehydrated Neck: Supple Lungs: Clear to auscultation - slight crackles peripherally and at bases Cardiovascular: Regular rate Abdomen: Soft - but tender with grimacing noted, - - dressing intact, minimal seepage Vital Signs Temp Pulse Resp BP Pulse Ox 97.8 F 95 16 92/58 L 94 06/20/17 11:22 06/20/17 11:22 06/20/17 11:22 06/20/17 11:22 06/20/17 11:22 Oxygen Flow Rate 1 Oxygen Delivery Method Room Air Weight: 50.7 kg Body Mass Index (BMI) 25.8 Intake and Output for Last 24 Hours 06/18/17 06/19/17 06/20/17 23:59 23:59 23:59 Intake Total 2800 / 2800 2448 / 2448 Output Total 300 / 300 385 / 385 Balance 2500 / 2500 2063 / 2063 Laboratory Tests Past 24 Hrs 06/19/17 16:15 Lactic Acid 1.0 Assessment/Plan Impression: POD#1 small bowel resection for bowel obstruction due to intussusception Plan: will give round the clock pain medications at least for 24hours, since patient cannot communicate encourage ambulation, PT consult stay on clear liq - sips until evidence of bowel function
[2017-06-20] MEDS: Lactated Ringers 1,000 ML 999 ML IV (12:01)
[2017-06-20] MEDS: oxyCODONE 5 MG Tablet PO ×3 (12:02→22:28)
[2017-06-20] MEDS: Acetaminophen 500 MG Tablet 1000 MG PO ×2 (13:50→22:27)
[2017-06-21 02:07] VITALS: BP 91/54; PULSE 82; RESP 16; TEMP 36.4; O2SAT 92
[2017-06-21] MEDS: oxyCODONE 5 MG Tablet PO ×4 (02:21→17:04)
[2017-06-21] MEDS: Acetaminophen 500 MG Tablet 1000 MG PO ×3 (05:32→22:42)
[2017-06-21] MEDS: Levothyroxine 100 MCG Tablet PO (05:33)
[2017-06-21] MEDS: 0.9% Normal Saline 1,000 ML 150 ML IV ×4 (07:20→22:00)
[2017-06-21 08:49] VITALS: BP 111/66; PULSE 87; RESP 18; TEMP 36.5; O2SAT 92
[2017-06-21 14:15] VITALS: BP 104/69; PULSE 94; RESP 18; TEMP 37.2; O2SAT 96
--- NOTE | 2017-06-21 16:12 | CHAPLAIN ---
Type of Pastoral Visit _x__ Initial Visit ___ Follow-up Visit ___ On-call Visit ___ General Patient Visit ___ Spiritual Assessment ___ Family Conference ___ Bereavement ___ Rapid Response ___ Code Blue ___ Other (describe below) Pastoral Care Referral From _x__ Patient ___ Family ___ Nurse ___ Physician ___ Flow Specialist ___ Training Officer ___ Other (describe below) Sacrament/Intervention ___ Active listening ___ Anointing ___ Buddhist ___ Bereavement ___ Communion ___ Irfah exploration ___ ___ Life review _x__ Prayer ___ Reconciliation ___ Sacrament of Sick _x__ Supportive presence ___ Wedding ___ Other (describe below) Pastoral Comments
--- NOTE | 2017-06-21 17:01 | PCM.PN.SRG ---
Subjective: Cannot communicate that he is in pain, will therefore continue round the clock pain medications - Physical Exam General: Alert Oral: Moist Mucosa Neck: Supple Abdomen: Soft, Distended, - - rectal examination - air in rectal vault dressing intact - no seepage noted Vital Signs Temp Pulse Resp BP Pulse Ox 98.9 F 94 18 104/69 96 06/21/17 14:15 06/21/17 14:15 06/21/17 14:15 06/21/17 14:15 06/21/17 14:15 Oxygen Flow Rate 1 Oxygen Delivery Method Room Air Weight: 50.7 kg Body Mass Index (BMI) 25.8 Intake and Output for Last 24 Hours 06/19/17 06/20/17 06/21/17 23:59 23:59 23:59 Intake Total 2800 / 2800 4371 / 4371 3006 / 3006 Output Total 300 / 300 535 / 535 500 / 500 Balance 2500 / 2500 3836 / 3836 2506 / 2506 Assessment/Plan Impression: POD#2 small bowel resection for bowel obstruction due to intussusception Plan: will give round the clock pain medications another for 24hours, since patient cannot communicate D/C bueno - to encourage ambulation, PT working with patient stay on clear liq - sips until evidence of bowel function
[2017-06-21] MEDS: Ondansetron 4 MG/2 ML Vial IV (18:28)
[2017-06-21 20:01] VITALS: BP 105/56; PULSE 104; RESP 18; TEMP 36.5; O2SAT 92
[2017-06-22] MEDS: oxyCODONE 5 MG Tablet PO ×2 (00:30→05:16)
[2017-06-22 02:29] VITALS: BP 101/71; PULSE 97; RESP 18; TEMP 36.9; O2SAT 92
[2017-06-22] MEDS: 0.9% Normal Saline 1,000 ML 150 ML IV ×3 (04:00→18:12)
[2017-06-22] MEDS: Levothyroxine 100 MCG Tablet PO (05:16)
[2017-06-22] MEDS: Acetaminophen 500 MG Tablet 1000 MG PO ×3 (05:16→22:06)
[2017-06-22 07:55] VITALS: BP 102/67; PULSE 90; RESP 16; TEMP 36.8; O2SAT 92
--- NOTE | 2017-06-22 09:23 | PN.SURG_ITS ---
Subjective: nurses noted that patient passed flatus, patient seems to be in less than pain - Physical Exam General: Alert Oral: Moist Mucosa - less tacky Neck: Supple Lungs: Normal air movement Cardiovascular: Regular rate Abdomen: Bowel Sounds Present, Soft, - - dressing intact Vital Signs Temp Pulse Resp BP Pulse Ox 98.3 F 90 16 102/67 92 06/22/17 07:55 06/22/17 07:55 06/22/17 07:55 06/22/17 07:55 06/22/17 07:55 Oxygen Flow Rate 1 Oxygen Delivery Method Nasal Cannula Weight: 50.7 kg Body Mass Index (BMI) 25.8 Intake and Output for Last 24 Hours 06/20/17 06/21/17 06/22/17 23:59 23:59 23:59 Intake Total 4371 / 4371 3897 / 3897 2088 Output Total 535 / 535 700 / 700 Balance 3836 / 3836 3197 / 3197 2088 Assessment/Plan Impression: POD#3 small bowel resection for bowel obstruction due to intussusception Plan: less likely bleeding postoperatively - will switch to toradol and stop round-the -clock oxyir as this tends to slow down peristalsis will start heparin SQ and d/c SCD (only while lying in bed) - to encourage ambulation d/c bueno - better urine output still stay on clear liq - sips until evidence of bowel function - may be slow due to long standing bowel disorder and Down's - will start reglan continue to work with PT, encourage ambulation would keep as inpatient through the weekend does not require abdominal binder - only use for comfort
[2017-06-22 10:15] VITALS: BP 106/67; PULSE 87; RESP 18; TEMP 36.8; O2SAT 92
[2017-06-22] MEDS: Famotidine 20 MG Tablet PO ×2 (10:56→22:06)
[2017-06-22] MEDS: Heparin Injection 5,000 UNITS/ML Syringe 5000 UNITS SC ×2 (10:56→22:07)
[2017-06-22] MEDS: Metoclopramide 10 MG/2 ML Vial 5 MG IV ×2 (14:17→22:12)
[2017-06-22] MEDS: Ketorolac 15 MG/ML Vial IV ×2 (14:18→22:06)
[2017-06-22 16:30] VITALS: BP 107/65; PULSE 88; RESP 16; TEMP 36.7; O2SAT 92
[2017-06-22 22:20] VITALS: BP 117/77; PULSE 96; RESP 20; TEMP 36.6; O2SAT 94
[2017-06-23] VITALS (8 sets, daily range): BP systolic 112–132; BP diastolic 67–83; PULSE 80–86; RESP 16–18; TEMP 36.3–36.9; O2SAT 86–96
[2017-06-23] MEDS: 0.9% Normal Saline 1,000 ML 150 ML IV ×3 (01:10→17:40)
[2017-06-23] MEDS: Levothyroxine 100 MCG Tablet PO (05:36)
[2017-06-23] MEDS: Metoclopramide 10 MG/2 ML Vial 5 MG IV (05:36)
[2017-06-23] MEDS: Ketorolac 15 MG/ML Vial IV (05:36)
[2017-06-23] MEDS: Acetaminophen 500 MG Tablet 1000 MG PO ×3 (05:36→21:18)
[2017-06-23] MEDS: Heparin Injection 5,000 UNITS/ML Syringe 5000 UNITS SC ×2 (10:01→21:18)
[2017-06-23] MEDS: Famotidine 20 MG Tablet PO ×2 (10:01→21:18)
--- NOTE | 2017-06-23 11:03 | PCM.PN.SRG ---
Subjective: patient smiling, appears well nurses state that he has been passing flatus and had small bowel movement still with poor intake - requiring encouragement - Physical Exam General: Alert, Cooperative Oral: Moist Mucosa Neck: Supple Lungs: Normal air movement Abdomen: Bowel Sounds Present, Soft, - - dressing intact - minimal seepage Vital Signs Temp Pulse Resp BP Pulse Ox 98.5 F 84 16 112/72 93 06/23/17 09:59 06/23/17 09:59 06/23/17 09:59 06/23/17 09:59 06/23/17 09:59 Oxygen Flow Rate 2 Oxygen Delivery Method Room Air Weight: 58.6 kg Body Mass Index (BMI) 25.8 Intake and Output for Last 24 Hours 06/21/17 06/22/17 06/23/17 23:59 23:59 23:59 Intake Total 3897 / 3897 4124 / 4124 1783 / 1783 Output Total 700 / 700 Balance 3197 / 3197 4124 / 4124 1783 / 1783 Assessment/Plan Impression: POD#4 small bowel resection for bowel obstruction due to intussusception Plan: will d/c continuous pain medications except for round the clock tylenol on heparin SQ for DVT prophylaxis advance to regular diet - hopefully more enticing choices to encourage patient to increase po intake - regular ensure patient to continue work with PT - patient lives in custodial - consider TCU placement for a few days?
--- NOTE | 2017-06-23 11:07 | PN.SURG_ITS ---
Subjective: patient smiling, appears well nurses state that he has been passing flatus and had small bowel movement still with poor intake - requiring encouragement - Physical Exam General: Alert, Cooperative Oral: Moist Mucosa Neck: Supple Lungs: Normal air movement Abdomen: Bowel Sounds Present, Soft, - - dressing intact - minimal seepage Vital Signs Temp Pulse Resp BP Pulse Ox 98.5 F 84 16 112/72 93 06/23/17 09:59 06/23/17 09:59 06/23/17 09:59 06/23/17 09:59 06/23/17 09:59 Oxygen Flow Rate 2 Oxygen Delivery Method Room Air Weight: 58.6 kg Body Mass Index (BMI) 25.8 Intake and Output for Last 24 Hours 06/21/17 06/22/17 06/23/17 23:59 23:59 23:59 Intake Total 3897 / 3897 4124 / 4124 1783 / 1783 Output Total 700 / 700 Balance 3197 / 3197 4124 / 4124 1783 / 1783 Assessment/Plan Impression: POD#4 small bowel resection for bowel obstruction due to intussusception Plan: will d/c continuous pain medications except for round the clock tylenol on heparin SQ for DVT prophylaxis advance to regular diet - hopefully more enticing choices to encourage patient to increase po intake - regular ensure patient to continue work with PT - patient lives in long-term - consider TCU placement for a few days?
--- NOTE | 2017-06-23 22:55 | NURSING ---
Notified by other staff member who responded to pt's pump alarming, that IV site had infiltrated and left arm very swollen and tight. charge nurse had just replaced IV when arrived in room. Flushed left IV and aspirated, good flashback. Arm swollen and tight as reported. Had handed over to am staff about pt's weight gain since admission and concerns with swollen left arm. AM staff reported that the above concerns had been raised with Dr Presley and she still wanted fluids to continue due to the patient's poor oral intake. Pt's arm elevated on a pillow. Will continue to monitor pt's swelling overnight.
[2017-06-24] MEDS: 0.9% Normal Saline 1,000 ML 150 ML IV (00:41)
[2017-06-24 03:15] VITALS: BP 116/74; PULSE 77; RESP 18; TEMP 36.5; O2SAT 97
[2017-06-24] MEDS: Levothyroxine 100 MCG Tablet PO (06:06)
[2017-06-24] MEDS: Acetaminophen 500 MG Tablet 1000 MG PO ×2 (06:06→13:23)
--- NOTE | 2017-06-24 07:38 | PCM.PN.SRG ---
Subjective: Patient feeling well, passing flatus, has had normal bowel movements - Physical Exam Vital Signs Temp Pulse Resp BP Pulse Ox 97.7 F L 77 18 116/74 97 06/24/17 03:15 06/24/17 03:15 06/24/17 03:15 06/24/17 03:15 06/24/17 03:15 Oxygen Flow Rate 2 Oxygen Delivery Method Room Air Weight: 60.328 kg Body Mass Index (BMI) 25.8 Intake and Output for Last 24 Hours 06/22/17 06/23/17 06/24/17 23:59 23:59 23:59 Intake Total 4124 / 4124 3574 / 3574 1847 / 1847 Balance 4124 / 4124 3574 / 3574 1847 / 1847 Assessment/Plan Impression: POD#5 small bowel resection for bowel obstruction due to intussusception Plan: can be discharged today
[2017-06-24 07:40] VITALS: O2SAT 95
[2017-06-24] MEDS: Famotidine 20 MG Tablet PO (08:04)
[2017-06-24] MEDS: Heparin Injection 5,000 UNITS/ML Syringe 5000 UNITS SC (08:04)
[2017-06-24 08:10] VITALS: BP 109/79; PULSE 82; RESP 18; TEMP 36.7; O2SAT 97
[2017-06-24 11:12] VITALS: BP 104/91; PULSE 81; RESP 16; TEMP 36.3; O2SAT 99
[2017-06-24 15:05] VITALS: BP 146/73; PULSE 79; RESP 16; TEMP 36.8; O2SAT 100
--- NOTE | 2017-06-24 16:47 | DCINST_ITS ---
Discharge Diet: No Restrictions Discharge Activity: Return to Normal Activity, May not drive while taking narcotic pain medications. Lifting Restrictions: no lifting/pushing/pulling greater than 20 pounds for 6 weeks Call your doctor if your incision/area has: Continuous Slow Oozing, Foul Smelling Discharge Additional Dressing/Incision Instructions:: Leave dressing in place. May get wet in shower. Do not soak - no tub baths/swimming Allergies/Adverse Reactions: Allergies CARDBOARD Allergy (Uncoded 06/19/17 10:51) Rash Medications to take at Discharge Fluoxetine HCl [Sarafem] 40 mg PO DAILY 11/06/13 Levothyroxine [Synthroid] 100 mcg PO DAILY 11/23/13 Multivitamins,Therapeutic [Multivitamin] 1 tab PO DAILY 11/23/13 Pravastatin Sodium [Pravachol] 40 mg PO QHS 11/23/13 Buspirone HCl 10 tab PO QHS 04/18/17 BusPIRone [Buspar] 5 mg PO BREAKFAST 04/19/17 fluocinolone 0.01 % topical body oil 1 applic TOPICAL QDAY 05/17/17 ketoconazole 2 % shampoo 1 applic TOPICAL Q2W 05/17/17 Omeprazole [Prilosec] 20 mg PO DAILY 06/10/17 Aspirin [Aspirin, Baby] 81 mg PO DAILY@0800 06/19/17 Ondansetron HCl [Zofran] 4 mg PO Q6H PRN 06/19/17 Hydrocodone/Acetaminophen [[place]fort 5-325 Tablet] 1 ea PO Q6H PRN PRN 7 Days #14 tab 06/24/17 The following prescriptions were given: Hydrocodone/Acetaminophen [[place] 5-325 Tablet] 1 ea PO Q6H PRN PRN 7 Days #14 tab PRN Reason: Mod-Severe Pain (-02/05) Primary Care Physician: Antoinette Pringle [Primary Care Provider] - Please Follow Up With: Antionette Presley MD - call When: to be seen in 7-10 days, please call for date and time, thank you
--- NOTE | 2017-07-01 08:44 | PCM.DC.BLA ---
Discharge Summary Date of Admission: 06/19/17 Date of Discharge: 06/24/17 Summary: Matthew Lynne is a 62 y/o WM with Down's syndrome with communication disability who presented to [facility] ED with worsening of small bowel intussusception. Noted a few days before, but no clinical evidence of bowel obstruction. Patient was to be followed as outpatient for consideration of future surgery, however, he presented earlier with worsening symptoms. He was therefore taken to OR for urgent exploratory laparotomy 06/19/17. Findings of small bowel intussusception but no evidence of gangrene or necrosis. Small bowel resection was done at site of intussusception point. Patient did well through procedure. Postoperative recovery was unremarkable except for communications difficulty, that is getting patient's pain under control with appropriate pain medications. Patient did not ask for pain medications, therefore prn order was inadequate. OT and PT were involved due to patient's debilitated state. Also, patient has had long standing decreased desire to eat and had to be encouraged. He tolerated diet by POD#3 with evidence of bowel function. He was discharged without evidence of infection and with pain under control. Released by PT/OT to skilled nursing. Patient to be followed as outpatient in my office. Final diagnosis: small bowel obstruction due to intussusception Procedure: abdominal/pelvic CT scan small bowel resection
--- NOTE | 2017-07-01 08:51 | DS.PCM_ITS ---
Discharge Summary Date of Admission: 06/19/17 Date of Discharge: 06/24/17 Summary: Matthew Lynne is a 62 y/o WM with Down's syndrome with communication disability who presented to [facility] ED with worsening of small bowel intussusception. Noted a few days before, but no clinical evidence of bowel obstruction. Patient was to be followed as outpatient for consideration of future surgery, however, he presented earlier with worsening symptoms. He was therefore taken to OR for urgent exploratory laparotomy 06/19/17. Findings of small bowel intussusception but no evidence of gangrene or necrosis. Small bowel resection was done at site of intussusception point. Patient did well through procedure. Postoperative recovery was unremarkable except for communications difficulty, that is getting patient's pain under control with appropriate pain medications. Patient did not ask for pain medications, therefore prn order was inadequate. OT and PT were involved due to patient's debilitated state. Also, patient has had long standing decreased desire to eat and had to be encouraged. He tolerated diet by POD#3 with evidence of bowel function. He was discharged without evidence of infection and with pain under control. Released by PT/OT to retirement. Patient to be followed as outpatient in my office. Final diagnosis: small bowel obstruction due to intussusception Procedure: abdominal/pelvic CT scan small bowel resection
== END 2017-06-24 18:15 | disposition home or self-care (01) | DRG 330 ==
LOC: ED 14:43 → MS3 15:15
PROVIDERS: Admitting Provider Surgery; Emergency Provider Emergency Medicine; Family Provider Family Medicine; PCP Family Medicine; Visit Provider Surgery
PROC: 0DT80ZZ Resection of Small Intestine, Open Approach (ICD-10-PCS; CPT 49000; principal; 2017-06-19 18:05)
DX: K56.1 Intussusception (principal); F72 Severe intellectual disabilities; E03.9 Hypothyroidism, unspecified; E78.5 Hyperlipidemia, unspecified; Q90.9 Down syndrome, unspecified; K66.0 Peritoneal adhesions (postprocedural) (postinfection); Z86.73 Personal history of transient ischemic attack (TIA), and cerebral infarction without residual deficits
CPT/HCPCS: 74177; 80048; 80076; 83605; 83690; 85025; 88304; 88307; 97110; 97116; 97162; 97165; 97802; 99285; J7030; J7120; Q9967; J2405

== ENCOUNTER 2018-01-09 18:42 | Emergency (ER) | payer MEDICARE, MEDICAID, OTHER, SELFPAY ==
[2018-01-09 18:43] VITALS: BP 136/77; PULSE 78; RESP 15; TEMP 36.7; O2SAT 96; BMI 20.9
--- NOTE | 2018-01-09 19:20 | RAD_ITS ---
STUDY: X-RAY - LEFT HAND REASON FOR EXAM: Male, 62 years old. Fall. TECHNIQUE: 2 view(s) of the hand. COMPARISON: None. FINDINGS: Normal radiocarpal articulation. Normal distal radioulnar joint. Normal visualized carpal bones. Normal carpal articulations Normal carpometacarpal articulation of the thumb. Normal second through fifth carpometacarpal joints. Normal metacarpi. Normal metacarpophalangeal joint of the thumb. Normal interphalangeal joint of the thumb. Normal proximal and distal phalanges of the thumb. Normal metacarpophalangeal joints of the second through fifth fingers. Normal proximal and distal interphalangeal joints of the second through fifth fingers. Normal phalanges of the second through fifth fingers. The soft tissue structures are unremarkable. RAD/Hand 2 Views IMPRESSION: Limited 2 view study of the hand shows no gross acute abnormality. Electronically Signed: Jono Wu MD at 21:20 EDT , Service support ,
--- NOTE | 2018-01-09 19:31 | RAD_ITS ---
STUDY: X-RAY - RIGHT HAND REASON FOR EXAM: Male, 62 years old. Fall TECHNIQUE: 2 view(s) of the hand. COMPARISON: None. FINDINGS: Very limited examination, only 2 views and a lateral view shows marked overlap of the fingers. No gross acute fracture or dislocation. Degenerative changes at the base of the thumb. RAD/Hand 2 Views IMPRESSION: Significantly limited examination shows no definite acute abnormality. Electronically Signed: Jono Wu MD at 19:42 EDT , Service support ,
--- NOTE | 2018-01-09 19:51 | ED.VISSUMM ---
- ER Visit Summary Date of Service: 01/09/18 Chief Complaint: Mouth injury, hand injury History of Present Illness: The patient is a 62 M who fell coming out of the library. He tripped over a parking barrier. He caught himself with his hands. He did hit the right side of his mouth. Automatic Spinning Lathe Operator did note a small laceration on the inside of the right mouth. His tetanus is up-to-date. He has been acting normally. There is been no vomiting. Physical Examination: Vital signs are reviewed. HEENT exam reveals no loose or broken teeth. He does have a 1 cm laceration on the inside of the right corner of the mouth. Heart is regular. Lungs clear. Abdomen soft. Bilateral upper extremity exam reveals no specific tenderness. No ecchymosis. His GCS is currently 15. His neurologic exam is at baseline according to the building carpenter Test Results: Bilateral hand x-rays reveal no acute findings. Emergency Department Course and Treatment: Patient had laceration repair. 2 5-0 Vicryl sutures were placed inside of the right mouth. There was good wound approximation. The should dissolve on their own. He will follow-up with his PCP in 1 week. He will use Tylenol and ice for pain at home. Treatment Plan: [] Disposition: Discharge Impression: Bilateral hand contusion Mouth laceration, 1 cm Laceration repair by ED physician This note was generated with [employer] dictation software. It may contain incorrect words, spelling, and punctuation that were not noted in review of the chart prior to signing ED Disposition - Plan for ED Patient: Chief Complaint: Laceration Referrals: Antoinette Pringle [Primary Care Provider] -
--- NOTE | 2018-01-09 20:08 | ED.RN ---
abrasions to bilateral palms, where pt caught self on the asphalt.
--- NOTE | 2018-01-09 20:19 | ED.DEP ---
ED Disposition - Plan for ED Patient: Disposition: Home or Assisted Living Chief Complaint: Laceration Instructions: ED Laceration Mouth Referrals: Antoinette Pringle [Primary Care Provider] -
[2018-01-09 20:24] VITALS: BP 132/81; PULSE 77; RESP 15; O2SAT 99
== END 2018-01-09 20:25 | disposition home or self-care (01) ==
PROVIDERS: Emergency Provider Emergency Medicine; Family Provider Family Medicine; PCP Family Medicine
DX: S01.512A Laceration without foreign body of oral cavity, initial encounter (principal); S60.222A Contusion of left hand, initial encounter; S60.221A Contusion of right hand, initial encounter; W18.09XA Striking against other object with subsequent fall, initial encounter; Y93.01 Activity, walking, marching and hiking; Y92.481 Parking lot as the place of occurrence of the external cause; Q90.9 Down syndrome, unspecified
CPT/HCPCS: 12011; 73120; 99283

== ENCOUNTER → 2018-04-01 14:32 | Outpatient (CLI) | payer MEDICARE, MEDICAID, SELFPAY ==
[2018-04-01 16:14] LABS: ALB/GLOB Ratio 0.9 RATIO (0.9-2.4); AST(SGOT) 25 U/L (15-37); Alanine Aminotransfer ALT/SGPT 33 U/L (16-61); Albumin, Serum 3.4 g/dL (3.2-5.0); Alkaline Phosphatase 71 U/L (45-117); Anion Gap 6 (5-15); BUN 9 mg/dL (7-18); BUN/Creat Ratio 11.6 RATIO (10-20); Calcium,Total 8.2 mg/dL (8.5-10.1); Chloride 102 mmol/L (98-107); Cholesterol 151 mg/dL (200); Creatinine, Serum 0.78 mg/dL (0.70-1.30); EST Glomerular Filtration Rate 108 mL/min (>60); Est Glom Filt Rate - Afr Amer 130 mL/min (>60); Globulin 3.9 g/dL (2.2-4.2); Glucose 73 mg/dL (74-106); High Density Lipoprotein 66 mg/dL; Potassium 3.7 mmol/L (3.5-5.1); Protein, Total 7.3 g/dL (6.4-8.2); Sodium Level 137 mmol/L (136-145); Thyroid Stim Hormone (TSH) 0.02 uIU/mL (0.358-3.74); Triglycerides 146 mg/dL; Very Low Density Lipoprotein 29 mg/dL (5-40)
== END ==
PROVIDERS: Family Provider Family Medicine; PCP Family Medicine
DX: E78.2 Mixed hyperlipidemia (principal); Q90.9 Down syndrome, unspecified; E03.9 Hypothyroidism, unspecified
CPT/HCPCS: 36415; 80053; 80061; 84443

== ENCOUNTER → 2018-06-20 11:51 | Outpatient (CLI) | payer MEDICARE, MEDICAID, SELFPAY ==
[2018-06-20 14:04] LABS: AST(SGOT) 33 U/L (15-37); Alanine Aminotransfer ALT/SGPT 41 U/L (16-61); Albumin, Serum 3.8 g/dL (3.2-5.0); Alkaline Phosphatase 71 U/L (45-117); Anion Gap 5 (5-15); BUN 9 mg/dL (7-18); BUN/Creat Ratio 11.4 RATIO (10-20); Calcium,Total 8.5 mg/dL (8.5-10.1); Chloride 98 mmol/L (98-107); Creatinine, Serum 0.79 mg/dL (0.70-1.30); EST Glomerular Filtration Rate 106 mL/min (>60); Est Glom Filt Rate - Afr Amer 128 mL/min (>60); Glucose 82 mg/dL (74-106); Potassium 4.2 mmol/L (3.5-5.1); Protein, Total 7.8 g/dL (6.4-8.2); Sodium Level 132 mmol/L (136-145)
== END ==
PROVIDERS: Family Provider Family Medicine; PCP Family Medicine
DX: E03.9 Hypothyroidism, unspecified (principal); R63.4 Abnormal weight loss
CPT/HCPCS: 36415; 80053; 84443

== ENCOUNTER → 2018-08-14 13:37 | Outpatient (CLI) | payer MEDICARE, MEDICAID, SELFPAY ==
[2018-08-14 16:43] LABS: Thyroid Stim Hormone (TSH) 1.32 uIU/mL (0.358-3.74)
== END ==
PROVIDERS: Family Provider Family Medicine; PCP Family Medicine
DX: E03.9 Hypothyroidism, unspecified (principal)
CPT/HCPCS: 36415; 84443

== ENCOUNTER → 2019-02-25 13:30 | Outpatient (CLI) | payer MEDICARE, MEDICAID, SELFPAY ==
--- NOTE | 2019-02-25 13:30 | SP.MBSS_ITS ---
PRIMARY / SECONDARY DIAGNOSIS: dysphagia (R13.10) REFERRING PHYSICIAN: Uche Yuan, LEAD JAVASCRIPT ENGINEER-CONVEYOR BELT INSTALLER CURRENT DIET: regular-soft textured, thin liquids DENTITION: WFL MENTAL STATUS: impaired RESPIRATORY STATUS: O2 via room air REASON FOR REFERRAL: The Patient is a 64 year old male referred for a modified barium swallow (MBS) study to objectively assess the Patients oropharyngeal swallow function under fluoroscopy secondary to continued dysphagia with solid ingestion, with the Patient tending to avoid multiple solid textures despite preference (or prior preference; example: pizza), with the Patient reportedly preferring sweeter foods; reported difficulties with medication administration necessitating pill alteration (cutting in half). MEDICAL HISTORY: Down syndrome, hypothyroid, dyslipidemia, anxiety and depression PREVIOUS MODIFIED BARIUM SWALLOW STUDY: 05/08/2017 MBS revealed mild oropharyngeal dysphagia (DSRS: 2; SPS: 3) without penetration / aspiration. 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 ASSESSMENT PARAMETERS: The Patient participated in a Modified Barium Swallow (MBS) study on 02/25/2019. Dr. Cho was the radiologist present for this evaluation. This study was recorded in the lateral view and images were sent to PACs for storage. Scoring was completed through each trial using the 8-point Penetration-Aspiration Scale (PAS), and summarized via the Modified Barium Swallow Impairment Profile (MBSImP) and the Bolus Residue Scale (BRS), with severity scoring through the Dysphagia Severity Rating Scale (DSRS) and the Swallowing Performance Scale (PSP), and recommended diet textures through the International Dysphagia Diet Standardisation Initiative (IDDSI). RESULTS OF THE EVALUATION: The Patient presents with mild oropharyngeal dysphagia (DSRS: 1; SPS: 2) secondary to the diagnosis of Downs?s syndrome, similar in nature to the 05/08/2017 study. OBJECTIVE ASSESSMENT OF SWALLOW FUNCTION (QUANTITATIVE ? PER TRIAL): PENETRATION / ASPIRATION SCALE (PROCTOR): 1 = does not enter airway 2 = enters airway/above vocal folds/ejected 3 = enters airway/above vocal folds/not ejected 4 = enters airway/contacts vocal folds/ejected 5 = enters airway/contacts vocal folds/not ejected 6 = enters airway/below vocal folds/ejected 7 = enters airway/below vocal folds/not ejected despite effort 8 = enters airway/below vocal folds/no effort PENETRATION / ASPIRATION SCALE (SCORE): Thin liquid - 5 mL tsp.: 1 Thin liquids via cup (sequential swallows): 2 Pudding via spoon: 1 Regular textured cookie: 1 Thin liquids via straw (single sip): 1 Thin liquids via straw (sequential swallows): 1* * denotes large volumes habitually ingested OBJECTIVE ASSESSMENT OF SWALLOW FUNCTION (QUANTITATIVE ? AGGREGATE): MODIFIED BARIUM SWALLOW IMPAIRMENT PROFILE (MBSImP) LABIAL SEAL: 0 (of 4) no labial escape TONGUE CONTROL: 0 (of 3) cohesive bolus BOLUS PREPARATION / MASTICATION: 0 (of 3) timely and efficient BOLUS TRANSPORT / LINGUAL MOTION: 0 (of 4) brisk tongue motion ORAL RESIDUE: 1 (of 4) trace residue lining oral structures INITIATION OF PHARYNGEAL SWALLOW: 1 (of 4) valleculae SOFT PALATE ELEVATION: 0 (of 4) no bolus between soft palate & pharyngeal wall LARYNGEAL ELEVATION: 0 (of 3) complete superior movement / approximation ANTERIOR HYOID EXCURSION: 1 (of 2) partial movement EPIGLOTTIC MOVEMENT: 0 (of 2) complete inversion LARYNGEAL VESTIBULE CLOSURE: 0 (of 2) complete closure PHARYNGEAL STRIPPING WAVE: 0 (of 2) present / complete PE SEGMENT OPENIN (of 3) partial distension / duration / obstruction TONGUE BASE RETRACTION: 2 (of 4) narrow column of contrast PHARYNGEAL RESIDUE: 1 (of 4) trace residue ESOPHAGEAL BOLUS CLEARANCE: 0 (of 4) complete clearance; esophageal coating BOLUS RESIDUE SCALE (BRS): 1 (of 6) no residue DYSPHAGIA SEVERITY RATING SCALE (DSRS): 2 (mild) SWALLOWING PERFORMANCE SCALE (SPS): 3 (mild) OBJECTIVE ASSESSMENT OF SWALLOW FUNCTION (QUALITATIVE): ORAL PREPARATORY PHASE: competent bolus manipulation without fragmented swallowing (piecemeal deglutition); sufficient anterior oral containment during presentation / manipulation; preserved management of breathing / bolus formation without disrupted E ? S ? E pattern ORAL TRANSITIONAL PHASE: no presence of transitional incompetence; no lingual discoordination (no tremor / undulations); no bolus consolidation impairments with sufficient oral clearance; no presence of premature posterior bolus loss PHARYNGEAL PHASE: no clinically significant findings indicating pharyngeal dyssynchrony; appropriate hyolaryngeal excursion and laryngeal vestibule closure / pressure; sufficient / consistent laryngeal vestibule pressure generated to expel penetrated material; no clinically significant findings associated with pharyngeal dysmotility, much improved in comparison to the prior study; no signs of velopharyngeal impairments; ESOPHAGEAL PHASE: esophageal phase appears unremarkable CONTRIBUTING / COMPLICATING FACTORS AND NOTABLE FINDINGS: there again appears to be cervical spondylosis vs. atlantoaxial instability associated with Downs?s syndrome; prior assessment questioned a possible small anterior cervical esophageal web, though there is no clear findings during this study to indicate this; noted tachyphagia (rapid ingestion) with thin liquid ingestion, which may complicate intake sufficiency. RESPONSE TO STRATEGIES: all deficits managed successfully with reductions in bolus rate / volume. DYSPHAGIA ASSOCIATED MEDICAL CONSIDERATIONS / INTERVENTION CONSIDERATIONS: Would further consider additional assessment of the Patients esophageal functioning, as it is outside the scope of the modified barium swallow study to objectively assess esophageal functioning; may consider further workup via manager acquisition. If there are concerns with behavioral based intake sufficiency (i.e., rapid ingestion, texture aversions), I would consider a clinical assessment outside of the clinical setting (home based) to further elucidate the nature and definition of the Patients dysphagia. POST ASSESSMENT EDUCATION: Results and recommendations were discussed with the Patient and Patients caregiver immediately following MBS completion, with the Patients caregiver verbalizing understanding and agreement with all recommendations and education provided. DIET TEXTURE RECOMMENDATIONS: Will recommend a regular ? soft textured (IDDSI: 6), thin liquid diet (IDDSI: 0) diet RECOMMENDED COMPENSATORY STRATEGIES: Distant supervision, consider cutting tougher textures into bite sized pieces, reduced bolus volume / rate of ingestion, liquid chaser at reasonable intervals, seated upright at 90 degrees during PO intake, remain upright for 30-60 minutes post meal (GERD precaution), medications one at a time with pureclara. IMAGE COUNT: [id number] Daniele Conde M.A., ZEUS-APPLIED BIOLOGY PROFESSOR, CBIS MBSImP Certified, LSVT Certified [facility] Speech-Language Pathology Department [email or web address]
--- NOTE | 2019-02-25 13:34 | RAD_ITS ---
STUDY: SWALLOWING STUDY REASON FOR EXAM: Male, 64 years old. Dysphagia. TECHNIQUE: The examination was performed with Speech Pathology in attendance. Under fluoroscopic observation, the patient ingested thin barium, thick barium, barium pudding, and barium coated cracker. FLUOROSCOPY TIME: 1:12 minutes/seconds. 1078 fluoroscopic images were obtained. RADIOLOGIST INVOLVEMENT: Radiologist was present and providing direct supervision. COMPARISON: None. FINDINGS: The following was observed during swallowing of the various mixtures of barium: Thin Barium: There was no evidence of aspiration or laryngeal penetration. Barium Pudding: There was no evidence of aspiration or laryngeal penetration. Barium Coated Cracker: There was no evidence of aspiration or laryngeal penetration. RAD/Swallowing Function w/Video IMPRESSION: Normal tailored barium swallow study. No evidence of increased risk for aspiration. The swallow study findings were discussed with the patient by the speech pathologist at the conclusion of the examination. Please see speech pathology report for more information and recommendations. The procedure was performed by under the direct supervision of Electronically Signed: Haile Cho, at 14:15 EDT , Service support ,
== END ==
PROVIDERS: Family Provider Family Medicine; PCP Family Medicine
DX: R13.10 Dysphagia, unspecified (principal)
CPT/HCPCS: 74230; 92611

== ENCOUNTER → 2019-07-06 10:16 | Outpatient (CLI) | payer MEDICARE, MEDICAID, SELFPAY ==
[2019-07-06 11:06] LABS: Absolute Lymphocyte Count 0.66 X10^3/uL (0.83-4.51); Absolute Neutrophil Count 2.7 X10^3/uL (2.0-7.7); Basophil# 0.12 X10^3/uL; Eosinophil# 0.04 X10^3/uL; Hematocrit 36.9 % (40-54); Hemoglobin 12.6 g/dL (13.0-16.5); Lymphocyte # 0.66 X10^3/ul (4.0); Lymphocyte % 16.4 % (19-41); Mean Corp Hgb Conc 34.1 g/dL (32-36); Mean Corpuscular Hgb 33.6 pg (27.0-32.0); Mean Corpuscular Volume 98.4 fL (80-94); Mean Platelet Vol. 8.6 fl (6.2-12.0); Monocyte# 0.53 X10^3/uL; Monocyte% 13.2 % (0-10); NRBC Flagged by Analyzer 0 % (0-5); Neutrophil # 2.67 X10^3/uL (2.7-7.7); Neutrophil % 66.2 % (47-70); Platelet Count 378 K/mm3 (150-450); RBC Distribution Width CV 14.4 % (11.6-14.6); RBC Distribution Width SD 52.4 fl (35.1-43.9); Red Blood Count 3.75 M/mm3 (4.6-6.2)
[2019-07-06 11:56] LABS: ALB/GLOB Ratio 0.9 RATIO (0.9-2.4); AST(SGOT) 35 U/L (15-37); Alanine Aminotransfer ALT/SGPT 40 U/L (16-61); Albumin, Serum 3.5 g/dL (3.2-5.0); Alkaline Phosphatase 65 U/L (45-117); Anion Gap 4 (5-15); BUN 8 mg/dL (7-18); BUN/Creat Ratio 10.2 RATIO (10-20); Calcium,Total 8.7 mg/dL (8.5-10.1); Chloride 102 mmol/L (98-107); Cholesterol 175 mg/dL (200); Creatinine, Serum 0.78 mg/dL (0.70-1.30); EST Glomerular Filtration Rate 107 mL/min (>60); Est Glom Filt Rate - Afr Amer 129 mL/min (>60); Globulin 3.9 g/dL (2.2-4.2); Glucose 83 mg/dL (74-106); High Density Lipoprotein 81 mg/dL; PSA,Total - Annual Screen 0.22 ng/mL (0.00-4.00); Potassium 4.3 mmol/L (3.5-5.1); Protein, Total 7.4 g/dL (6.4-8.2); Sodium Level 135 mmol/L (136-145); T4 Free Direct 1.12 ng/dL (0.76-1.46); Thyroid Stim Hormone (TSH) 1.12 uIU/mL (0.358-3.74); Triglycerides 71 mg/dL; Very Low Density Lipoprotein 14 mg/dL (5-40)
== END ==
PROVIDERS: PCP Family Medicine; Referring Provider Family Medicine; Visit Provider Family Medicine
DX: Q90.9 Down syndrome, unspecified (principal); E03.9 Hypothyroidism, unspecified; E01.0 Iodine-deficiency related diffuse (endemic) goiter; E78.2 Mixed hyperlipidemia; Z12.5 Encounter for screening for malignant neoplasm of prostate
CPT/HCPCS: 36415; 80053; 80061; 84153; 84439; 84443; 85025; G0103

== ENCOUNTER → 2019-07-16 09:48 | Outpatient (CLI) | payer MEDICARE, MEDICAID, SELFPAY ==
--- NOTE | 2019-07-16 09:53 | US_ITS ---
STUDY: THYROID ULTRASOUND REASON FOR EXAM: Male, 64 years old. HYPOTHYROIDISM THYROMEGALY TECHNIQUE: Ultrasound evaluation of the thyroid was performed with real-time and static lange-scale imaging. COMPARISON: Comparison is made with prior examination dated May 09, 2015. FINDINGS: RIGHT LOBE: The right lobe of the thyroid gland is decreased in size and measures 2.8 cm x 0.9 cm x 0.7 cm. There is a homogeneous echotexture. There are no demonstrated solid, cystic or complex lesions. LEFT LOBE: The left lobe of the thyroid gland is decreased in size and measures 2.2 cm x 0.9 cm x 0.5 cm. There is a homogeneous echotexture. There are no demonstrated solid, cystic or complex lesions. ISTHMUS: The isthmus measures 2.0 mm. The regional lymph nodes are normal. US/Thyroid IMPRESSION: Decreased size of the thyroid gland. No focal lesion is seen. Electronically Signed: Haile Cho, at 15:44 EDT , Service support ,
== END ==
PROVIDERS: PCP Family Medicine
DX: E03.9 Hypothyroidism, unspecified (principal)
CPT/HCPCS: 76536

== ENCOUNTER → 2019-12-01 10:23 | Outpatient (CLI) | payer MEDICARE, MEDICAID, SELFPAY ==
[2019-12-01 12:29] LABS: AST(SGOT) 31 U/L (15-37); Alanine Aminotransfer ALT/SGPT 46 U/L (16-61); Albumin, Serum 3.6 g/dL (3.2-5.0); Alkaline Phosphatase 66 U/L (45-117); Anion Gap 6 (5-15); BUN 5 mg/dL (7-18); Calcium,Total 8.6 mg/dL (8.5-10.1); Chloride 98 mmol/L (98-107); Cholesterol 160 mg/dL (200); Creatinine, Serum 0.84 mg/dL (0.70-1.30); EST Glomerular Filtration Rate 99 mL/min (>60); Est Glom Filt Rate - Afr Amer 120 mL/min (>60); Free T3 2.5 pg/mL (2.18-3.98); Globulin 3.7 g/dL (2.2-4.2); Glucose 96 mg/dL (74-106); High Density Lipoprotein 63 mg/dL; Potassium 3.7 mmol/L (3.5-5.1); Protein, Total 7.3 g/dL (6.4-8.2); Sodium Level 136 mmol/L (136-145); T4 Total, Thyroxin 11.5 ug/dL (4.5-12.1); Thyroid Stim Hormone (TSH) 1.03 uIU/mL (0.358-3.74); Triglycerides 102 mg/dL; Very Low Density Lipoprotein 20 mg/dL (5-40)
== END ==
PROVIDERS: PCP Family Medicine; Referring Provider Family Medicine; Visit Provider Family Medicine
DX: E03.9 Hypothyroidism, unspecified (principal); E78.5 Hyperlipidemia, unspecified
CPT/HCPCS: 36415; 80053; 80061; 84436; 84443; 84481

== ENCOUNTER → 2019-12-08 10:17 | Outpatient (CLI) | payer MEDICARE, MEDICAID, SELFPAY ==
[2019-12-08 10:22] LABS: Bacteria 0 SEEN /hpf (None Seen); Mucous, Urine 0 SEEN /hpf (<or=2+); Red Blood Cells-Urine 0 SEEN /hpf (0-5); Squamous Epithelial Cells - UA 0 SEEN /hpf (0-5); White Blood Cells 0 SEEN /hpf (0-5)
[2019-12-08 10:25] LABS: Color, Urine Yellow (Yellow); Glucose, Dipstick Normal (Normal); Ketone-Dipstick 5 mg/dl (Negative); Leukocyte Esterase-Dipstick Negative /ul (Negative); Nitrite-Dipstick Negative (Negative); Occult Blood-Urine Negative /ul (Negative); Protein-Dipstick Negative (Negative); Urine Bilirubin Dipstick Negative (Negative); Urine Clarity Sl. Cloudy (Clear); Urine Urobilinogen Normal (Normal)
[2019-12-08 10:31] LABS: Calcium Oxalate Crystals Ur 2+ /hpf (<or=2+)
== END ==
PROVIDERS: PCP Family Medicine; Visit Provider Family Medicine
DX: R41.0 Disorientation, unspecified (principal)
CPT/HCPCS: 81001

== ENCOUNTER 2019-12-26 19:13 | Emergency (ER) | payer MEDICARE, MEDICAID, SELFPAY ==
[2019-12-26 19:15] VITALS: BP 96/53; PULSE 71; RESP 16; TEMP 36.6; O2SAT 100; BMI 18.8
--- NOTE | 2019-12-26 19:49 | RAD_ITS ---
STUDY: X-RAY - RIGHT KNEE REASON FOR EXAM: Male, 64 years old. FALL YESTERDAY SWOLLEN AND PAINFUL AROUND PATELLA TECHNIQUE: 2 view(s) of the knee. COMPARISON: None. FINDINGS: There is an acute, comminuted, nondisplaced fracture of the patella. Visualized femur, tibia and fibula are intact. Moderate joint effusion. Medial and lateral compartments of the knee are well maintained. Moderate anterior soft tissue swelling. Soft tissues and bony structures are otherwise unremarkable. RAD/Knee 1 or 2 Views IMPRESSION: 1. Acute patellar fracture. 2. Joint effusion. Electronically Signed: Kylah Rowland MD at 21:01 EDT Tel , Service support ,
--- NOTE | 2019-12-26 19:49 | RAD_ITS ---
STUDY: X-RAY - RIGHT HAND REASON FOR EXAM: Male, 64 years old. FALL YESTERDAY. BRUISE MIDDLE KNUCKLE TECHNIQUE: 3 view(s) of the hand. COMPARISON: None. FINDINGS: Normal radiocarpal articulation. Normal distal radioulnar joint. Normal visualized carpal bones. Normal carpal articulations Normal carpometacarpal articulation of the thumb. Normal second through fifth carpometacarpal joints. Normal metacarpi. Normal metacarpophalangeal joint of the thumb. Normal interphalangeal joint of the thumb. Normal proximal and distal phalanges of the thumb. Normal metacarpophalangeal joints of the second through fifth fingers. Normal proximal and distal interphalangeal joints of the second through fifth fingers. Normal phalanges of the second through fifth fingers. The soft tissue structures are unremarkable. RAD/Hand Min 3 Views IMPRESSION: Normal x-ray examination of the hand. Electronically Signed: Brian Turner MD at 21:05 EDT , Service support ,
--- NOTE | 2019-12-26 20:36 | ED.VISSUMM ---
- ER Visit Summary Date of Service: 12/26/19 Chief Complaint: Fall History of Present Illness: The patient is a 64 M presenting after fall. This occurred yesterday at work. Patient fell onto his right knee. Today he was noted to be limping. He complains of right knee pain. It was also noticed that he has bruising to his right small finger. He denies pain in his finger. He did not hit his head or lose consciousness. No other complaints. Physical Examination: Vitals are stable. Patient is afebrile. Alert no acute distress. HEENT exam is unremarkable. Neck is nontender Lungs are clear and equal bilaterally. Heart is regular rate and rhythm. Abdomen is soft nontender nondistended. Extremities right anterior knee tenderness with painful active full range of motion. Normal distal pulses. Ecchymosis right small finger with active full range of motion. He is able to lift his leg off the bed in extension. Skin is warm and dry. No focal neurologic deficit. Remainder of exam is unremarkable. Emergency Department Course and Treatment: Right knee x-ray shows acute patellar fracture. Joint effusion. Right hand x-ray shows normal x-ray examination of the hand. Patient was put in knee immobilizer. Advised to ice and elevate. He declined pain medication. Discussed with Dr. Gage and patient will follow-up in the office. He is advised weightbearing as tolerated as long as his knee remains in extension. Advised to return to the ED for worsening complaints. Disposition: Discharge home Impression: Right patella fracture This note was generated with [employer] dictation software. It may contain incorrect words, spelling, and punctuation that were not noted in review of the chart prior to signing ED Disposition - Plan for ED Patient: Instructions: ED FRACTURE [place] Referrals: Johan Gage MD [STAFF PHYSICIAN] -
--- NOTE | 2019-12-26 21:25 | ED.DEP ---
ED Disposition - Plan for ED Patient: Instructions: ED FRACTURE [place] Referrals: Johan Gage MD [STAFF PHYSICIAN] -
== END 2019-12-26 22:41 | disposition home or self-care (01) ==
PROVIDERS: Emergency Provider Emergency Medicine; PCP Family Medicine
DX: S82.044A Nondisplaced comminuted fracture of right patella, initial encounter for closed fracture (principal); W19.XXXA Unspecified fall, initial encounter; Z91.81 History of falling; Y93.9 Activity, unspecified; Y92.9 Unspecified place or not applicable; Y99.0 Civilian activity done for income or pay
CPT/HCPCS: 73130; 73560; 99283

== ENCOUNTER → 2020-05-10 | Outpatient (CLI) | payer MEDICARE, MEDICAID, SELFPAY ==
[2020-05-10 09:44] VITALS: BMI 22.4
[2020-05-10 16:39] LABS: Bacteria 0 SEEN /hpf (None Seen); Mucous, Urine 0 SEEN /hpf (<or=2+); Red Blood Cells-Urine 0 SEEN /hpf (0-5); Squamous Epithelial Cells - UA 0 SEEN /hpf (0-5); White Blood Cells 0 SEEN /hpf (0-5)
[2020-05-10 16:45] LABS: Color, Urine Yellow (Yellow); Glucose, Dipstick Normal (Normal); Ketone-Dipstick Negative (Negative); Leukocyte Esterase-Dipstick Negative /ul (Negative); Nitrite-Dipstick Negative (Negative); Occult Blood-Urine Negative /ul (Negative); Protein-Dipstick Negative (Negative); Urine Bilirubin Dipstick Negative (Negative); Urine Clarity Clear (Clear); Urine Urobilinogen Normal (Normal)
== END | disposition home or self-care (01) ==
LOC: LABSPEC 12:31
PROVIDERS: PCP Family Medicine; Referring Provider Physician Assistant Surgical; Visit Provider Physician Assistant Surgical
DX: R35.0 Frequency of micturition (principal); R61 Generalized hyperhidrosis
CPT/HCPCS: 81001; 81002; 87086

== ENCOUNTER → 2020-05-11 12:17 | Outpatient (CLI) | payer MEDICARE, MEDICAID, SELFPAY ==
[2020-05-10 09:44] VITALS: BMI 22.4
[2020-05-11 14:48] LABS: Absolute Lymphocyte Count 0.79 X10^3/uL (0.83-4.51); Absolute Neutrophil Count 2.2 X10^3/uL (2.0-7.7); Basophil# 0.09 X10^3/uL; Basophil% 2.5 % (0-1); Eosinophil# 0.03 X10^3/uL; Eosinophils% 0.8 % (0-5); Hematocrit 40.2 % (40-54); Hemoglobin 13.5 g/dL (13.0-16.5); Lymphocyte # 0.79 X10^3/ul (4.0); Lymphocyte % 22.3 % (19-41); Mean Corp Hgb Conc 33.6 g/dL (32-36); Mean Corpuscular Hgb 33.3 pg (27.0-32.0); Mean Corpuscular Volume 99.3 fL (80-94); Mean Platelet Vol. 9.1 fl (6.2-12.0); Monocyte# 0.43 X10^3/uL; Monocyte% 12.1 % (0-10); NRBC Flagged by Analyzer 0 % (0-5); Neutrophil # 2.18 X10^3/uL (2.7-7.7); Neutrophil % 61.7 % (47-70); Platelet Count 425 K/mm3 (150-450); RBC Distribution Width CV 13.9 % (11.6-14.6); RBC Distribution Width SD 51.4 fl (35.1-43.9); Red Blood Count 4.05 M/mm3 (4.6-6.2); White Blood Count 3.5 K/mm3 (4.4-11.0)
[2020-05-11 15:27] LABS: Anion Gap 6 (5-15); BUN 6 mg/dL (7-18); BUN/Creat Ratio 7.8 RATIO (10-20); Calcium,Total 8.9 mg/dL (8.5-10.1); Chloride 95 mmol/L (98-107); Cholesterol 193 mg/dL (200); Creatinine, Serum 0.77 mg/dL (0.70-1.30); EST Glomerular Filtration Rate 108 mL/min (>60); Est Glom Filt Rate - Afr Amer 131 mL/min (>60); Free T3 2.5 pg/mL (2.18-3.98); Glucose 89 mg/dL (74-106); High Density Lipoprotein 93 mg/dL; Potassium 3.8 mmol/L (3.5-5.1); Sodium Level 129 mmol/L (136-145); T4 Total, Thyroxin 12.1 ug/dL (4.5-12.1); Thyroid Stim Hormone (TSH) 3.47 uIU/mL (0.358-3.74); Triglycerides 64 mg/dL; Very Low Density Lipoprotein 13 mg/dL (5-40)
== END ==
PROVIDERS: PCP Family Medicine; Referring Provider Family Medicine; Visit Provider Family Medicine
DX: R63.1 Polydipsia (principal); E78.5 Hyperlipidemia, unspecified; E03.9 Hypothyroidism, unspecified
CPT/HCPCS: 36415; 80048; 80061; 84436; 84443; 84481; 85025

== ENCOUNTER 2020-10-22 18:46 | Emergency (ER) | payer MEDICARE, MEDICAID, SELFPAY ==
[2020-05-10 09:44] VITALS: BMI 22.4
[2020-10-22 18:47] VITALS: BP 126/70; PULSE 66; RESP 17; TEMP 36.3; O2SAT 98; BMI 25.7
--- NOTE | 2020-10-22 19:41 | RAD_ITS ---
INDICATION: Fall, pain EXAMINATION/TECHNIQUE: X-RAY - XR Spine Lumbar Min 4 Views COMPARISON: None. FINDINGS: VERTEBRAE: Mild age indeterminate compression deformities of T11 and T12. Bilateral L5-S1 pars defects. 1.6 cm anterolisthesis L5 on S1. 3 mm retrolisthesis L4 on L5. 2 mm retrolisthesis L3 on L4. Levoscoliosis. Preservation of the normal lumbar lordosis. Moderate multilevel facet arthropathy. DISCS: Severe multilevel degenerative disc disease and spondylosis. INCLUDED ABDOMEN: Included bowel gas pattern is non-obstructive. RAD/L/S Spine Min 4 Views IMPRESSION: Mild age indeterminate compression deformities of T11 and T12. Bilateral L5-S1 pars defects with grade 2 anterolisthesis L5 on S1. Grade 1 anterolisthesis L4 on L5 and L3 on L4. Severe multilevel degenerative disc disease and spondylosis. Electronically Signed: Jose Resendiz MD at 21:04 EDT Tel , Service support ,
--- NOTE | 2020-10-22 19:41 | RAD_ITS ---
EXAM: XR PELVIS, 1 OR 2 VIEWS : 1955 CLINICAL INDICATION: Fall, pain TECHNIQUE: Frontal view of the pelvis. This report was created using [employer] report generation technology. COMPARISON: None. FINDINGS: BONES/JOINTS: Unremarkable. No displaced fracture. No destructive or sclerotic lesions. Note that overlapping bowel shadows may however obscure fine detail. Sacroiliac joints are unremarkable. No widening of the pubic symphisis. The articular structures are unremarkable. SOFT TISSUES: Unremarkable. No soft tissue swelling or gas. RAD/Pelvis 1 or 2 Views IMPRESSION: No evidence of displaced pelvic fracture. at 2049 Reported and signed by: Bob Saeed MD Electronically Signed: Bob Saeed MD at 20:48 EDT Tel , Service support ,
--- NOTE | 2020-10-22 19:44 | EX.ED.GENINJ ---
HPI History of Present Illness Chief Complaint: Fall Informant: patient and other Narrative Narrative: Patient is a 65-year-old male with a past medical history of Down syndrome, dementia who presents to the emergency department for two falls that occurred today. Patient has been wincing at times but he is denying having any pain. Patient typically does not ever say whenever he has pain. He fell 1 time and had a broken knee per the caregiver at bedside. This was not diagnosed until the knee swollen up few days later. Patient only keeps replying no to each question I ask. The one fall today was unwitnessed but it was heard and he was found on his side in a ball. His next fall was witnessed whenever he fell backwards and landed straight on his buttocks. Patient is not on any blood thinning medications. When asked the caregiver why he is having these falls she states that they made some recent medication adjustments with his Seroquel as he is been having some behavioral outburst. He did have a significant increase but they are trying to titrate it back. No known head trauma. He did not lose consciousness each fall. [facility] Medical History (Updated 10/22/20 @ 21:[address] Omero Black, ) Back pain Stroke Thyroid disease Weight loss, abnormal Home Medications fluoxetine 60 mg PO DAILY 11/06/13 [History Last Taken 06/18/17] pravastatin 40 mg PO QHS 11/23/13 [History Last Taken 06/18/17] buspirone 10 tab PO QHS 04/18/17 [History Last Taken 06/18/17] fluocinolone 0.01 % topical body oil 1 applic TOPICAL QDAY 05/17/17 [History Last Taken 06/18/17] ketoconazole 2 % shampoo 1 applic TOPICAL Q2W 05/17/17 [History Last Taken 06/18/17] aspirin 81 mg PO DAILY@0800 06/19/17 [History Last Taken 06/18/17] ondansetron HCl 4 mg PO Q6H PRN 06/19/17 [History Last Taken Unknown] hydrocodone-acetaminophen 1 ea PO Q6H PRN PRN 7 Days #14 tab 06/24/17 [Rx Last Taken Unknown] buspirone 5 mg PO DAILY 01/09/18 [History Last Taken Unknown] multivitamin 1 ea PO DAILY 01/09/18 [History Last Taken Unknown] omeprazole 20 mg PO DAILY 01/09/18 [History Last Taken Unknown] Acetaminophen 650 mg PO Q6H PRN 12/26/19 [History Last Taken Unknown] guaifenesin 600 mg PO Q12H PRN 12/26/19 [History Last Taken Unknown] levothyroxine 75 mg PO DAILY 12/26/19 [History Last Taken Unknown] melatonin 3 mg PO DAILY 12/26/19 [History Last Taken Unknown] donepezil [Aricept] 10 mg PO DAILY 10/22/20 [History Last Taken Unknown] loratadine 10 mg PO DAILY 10/22/20 [History Last Taken Unknown] quetiapine [Seroquel] 50 mg PO DAILY 10/22/20 [History Last Taken Unknown] quetiapine [Seroquel] 100 mg PO QHS 10/22/20 [History Last Taken Unknown] Allergy/AdvReac Type Severity Reaction Status Date / Time CARDBOARD Allergy Rash Uncoded 10/22/20 18:48 cardboard AdvReac Rash Uncoded 10/22/20 18:48 Surgical History History of hernia surgery Social History Smoking Status: Never smoker alcohol intake: never ROS ROS ED Constitutional Constitutional ED: Denies chills or fever(s) Eyes Eyes: Denies change in vision ENT ENT ED: Denies epistaxis Cardiovascular Cardiovascular: Denies chest pain Respiratory/Chest Respiratory/Chest: Denies cough or dyspnea Gastrointestinal Gastrointestinal: Denies abdominal pain, nausea or vomiting Musculoskeletal Musculoskeletal: Denies back pain or neck pain Integumentary Denies rash Neurologic Neurologic: Denies dizziness, headache(s) or weakness EXAM Physical Exam Const Vital Signs: 10/22/20 18:47 10/22/20 18:58 10/22/20 21:42 Temperature 97.3 F L Temperature Source Oral Pulse Rate 66 75 Respiratory Rate 17 14 Respiratory Effort Normal Non-Labored Respiratory Depth Normal Respiratory Pattern Normal Blood Pressure 126/70 H Blood Pressure Mean 88 Pulse Ox 98 96 Oxygen Delivery Method Room Air Room Air Positive well nourished and well developed General Appearance ED: well developed and NAD HEENT Reports normocephalic, head/scalp atraumatic and moist mucous membranes Eyes PERRL and EOMs intact bilaterally Neck supple General: Negative for tenderness Chest Wall inspection of chest normal Resp normal respiratory effort and clear to auscultation bilaterally Auscultation: Negative for rales, rhonchi or wheezes Cardio regular rate, regular rhythm and no murmurs GI normal to inspection, nondistended, normoactive bowel sounds and non-tender Palpation: soft; Negative for guarding or rebound tenderness present Back/Spine no CVA tenderness Back/Spine Narrative: No tenderness with palpation diffusely over basically entire body. No obvious bruising noted. Extremity normal to inspection General Extremety ED: Negative for edema or tenderness General Extremity: Negative for edema Neuro Sensorium / Orientation: alert Motor Exam: strength 5/5 throughout Skin no rashes or lesions noted MDM MDM MDM Narrative Medical decision making narrative: Patient presents to the ED for two falls today. He has had some grimacing but does not verbally describe any pain. Caregiver states that he never says whenever he has pain. Will check a chest x-ray. He did grimace a few times when I move the head of the bed up and down. Will check x-rays of the pelvis, sacrum and lumbar spine as he did fall back onto his buttocks. Patient's x-rays did show an age-indeterminate fracture of T11 and T12. Patient does not have any acute tenderness and does not appear to be tender when pushing over this area. I am not sure if this is acute. Most likely this is chronic. The x-rays of the pelvis and chest did not reveal any acute traumatic findings. This time I believe he is stable for discharge. I did recommend stopping the Seroquel in the morning and discontinue it at night and they need to follow-up with his PCP for continuing this. This can be a major factor in what could be causing him to fall at this time. He is to otherwise follow-up with his PCP. If he continues to have significant pain he can be reevaluated. He may need spine surgery although the fractures were very mild. This was all discussed with the caregiver. This time will discharge home in stable condition. All questions were answered with him. Radiography Diagnostic Testing: Radiology Impression Lumbar Spine X-Ray 10/22/20 19:41 IMPRESSION: Mild age indeterminate compression deformities of T11 and T12. Bilateral L5-S1 pars defects with grade 2 anterolisthesis L5 on S1. Grade 1 anterolisthesis L4 on L5 and L3 on L4. Severe multilevel degenerative disc disease and spondylosis. Electronically Signed: Jose Resendiz MD at 21:04 EDT Tel , Service support , Pelvis X-Ray 10/22/20 19:41 IMPRESSION: No evidence of displaced pelvic fracture. at 2049 Reported and signed by: Bob Saeed MD Electronically Signed: Bob Saeed MD at 20:48 EDT Tel , Service support , Chest X-Ray 10/22/20 19:47 IMPRESSION: No radiographic evidence of acute cardiopulmonary disease. at 2053 Reported and signed by: Bob Saeed MD Electronically Signed: Bob Saeed MD at 20:52 EDT Tel , Service support , Pelvis x-ray did not show any acute fracture or dislocation. Chest x-ray did not reveal any acute cardiopulmonary abnormality. Lumbar spine showed mild T11 and T12 fractures. Discharge Plan Triage Chief Complaint: Fall ED Provider: Omero Black Dx/Rx/DC Orders Clinical Impression: Compression fracture Instructions: ED Fracture, Vertebral Compression Prescriptions: No Action ketoconazole 2 % shampoo 1 applic TOPICAL Q2W RF: 0 fluocinolone 0.01 % topical body oil 0.01 % oil 1 applic TOPICAL QDAY RF: 0 fluoxetine 20 MG tablet 60 mg PO DAILY RF: 0 pravastatin 40 MG tablet 40 mg PO QHS RF: 0 buspirone 5 MG tablet 10 tab PO QHS RF: 0 ondansetron HCl 4 MG tablet 4 mg PO Q6H PRN (Reason: Nausea) RF: 0 aspirin 81 MG tablet,chewable 81 mg PO DAILY@0800 RF: 0 hydrocodone-acetaminophen 1 EACH tablet 1 ea PO Q6H PRN PRN (Reason: Mod-Severe Pain (4-02/05)) 7 Days Qty: 14 RF: 0 multivitamin 1 EACH tablet 1 ea PO DAILY RF: 0 buspirone 5 MG tablet 5 mg PO DAILY RF: 0 omeprazole 20 MG capsule 20 mg PO DAILY RF: 0 levothyroxine 75 MCG tablet 75 mg PO DAILY RF: 0 melatonin 3 MG capsule 3 mg PO DAILY RF: 0 Acetaminophen 650 mg PO Q6H PRN (Reason: Pain Or Fever) RF: 0 guaifenesin 600 MG tablet extended release 12hr 600 mg PO Q12H PRN (Reason: Congestion) RF: 0 donepezil [Aricept] 10 mg Tablet 10 mg PO DAILY RF: 0 quetiapine [Seroquel] 100 mg Tablet 100 mg PO QHS RF: 0 quetiapine [Seroquel] 50 mg Tablet 50 mg PO DAILY RF: 0 loratadine 10 mg Capsule 10 mg PO DAILY RF: 0 Stand Alone Forms: ED Work / School Excuse Primary Care Provider: Jeff Herndon Referrals: Jeff Herndon MD [Primary Care Provider] - Activity Restrictions/Additional Instructions: Patient's x-ray showed a age-indeterminate fracture of T11 and T12. This is a compression fracture that is very mild. This is unsure if this is an acute fracture from the falls today. Recommend that he decrease his morning Seroquel and discuss continuing this with his family medicine doctor. He needs to follow-up with his PCP about the potential fractures. He develops any worsening pain or other symptoms he can return back to the emergency department for further evaluation at any point. Patient okay to return back to work as tolerated. Disposition Disposition: Home, Self Care Discharge Date/Time: 10/22/20 21:52
--- NOTE | 2020-10-22 19:47 | RAD_ITS ---
EXAM: XR CHEST, 1 VIEW : 1955 CLINICAL INDICATION: Fall, unknown injury TECHNIQUE: Frontal view of the chest. This report was created using [employer] report generation technology. COMPARISON: 12/10/2013 FINDINGS: LUNGS AND PLEURAL SPACES: Unremarkable. No consolidation or edema. No pneumothorax. No effusion. HEART: Unremarkable. Cardiac silhouette not enlarged. MEDIASTINUM: Central airways and mediastinal contour are unremarkable. BONES/JOINTS: Unremarkable. SOFT TISSUES: Unremarkable. RAD/Chest 1 View IMPRESSION: No radiographic evidence of acute cardiopulmonary disease. at 2053 Reported and signed by: Bob Saeed MD Electronically Signed: Bob Saeed MD at 20:52 EDT Tel , Service support ,
[2020-10-22 21:42] VITALS: PULSE 75; RESP 14; O2SAT 96
== END 2020-10-22 21:52 | disposition home or self-care (01) ==
PROVIDERS: Emergency Provider Emergency Medicine; PCP Family Medicine
DX: S22.080A Wedge compression fracture of T11-T12 vertebra, initial encounter for closed fracture (principal); E07.9 Disorder of thyroid, unspecified; Q90.9 Down syndrome, unspecified; W19.XXXA Unspecified fall, initial encounter; Z79.82 Long term (current) use of aspirin; Z79.899 Other long term (current) drug therapy
CPT/HCPCS: 71045; 72110; 72170; 99282

== ENCOUNTER → 2020-10-24 16:50 | Outpatient (CLI) | payer MEDICARE, MEDICAID, SELFPAY ==
[2020-10-22 18:47] VITALS: BMI 25.7
--- NOTE | 2020-10-24 16:53 | RAD_ITS ---
STUDY: X-RAY - UNILATERAL RIBS ( LEFT ) REASON FOR EXAM: Male, 65 years old. Fall. Pain. TECHNIQUE: 2 view(s) of the ribs. COMPARISON: None. FINDINGS: Generalized osteopenia of the osseous structures. No displaced rib fracture is identified. Marked thoracolumbar scoliosis. The visualized lung is clear and expanded. RAD/Ribs Unil 2V No CXR IMPRESSION: Osteopenia with no displaced rib fracture. Marked thoracolumbar scoliosis. Electronically Signed: Jonny Fiore MD at 12:47 EDT , Service support ,
== END ==
PROVIDERS: PCP Family Medicine; Referring Provider Family Medicine; Visit Provider Family Medicine
DX: T14.8XXA Other injury of unspecified body region, initial encounter (principal); W19.XXXA Unspecified fall, initial encounter
CPT/HCPCS: 71100

== ENCOUNTER → 2020-10-27 15:58 | Outpatient (CLI) | payer MEDICARE, MEDICAID, SELFPAY ==
[2020-10-22 18:47] VITALS: BMI 25.7
[2020-10-27 18:04] LABS: Absolute Lymphocyte Count 0.79 X10^3/uL (0.83-4.51); Absolute Neutrophil Count 8.8 X10^3/uL (2.0-7.7); Basophil# 0.06 X10^3/uL; Basophil% 0.5 % (0-1); Eosinophil# 0.03 X10^3/uL; Eosinophils% 0.3 % (0-5); Hematocrit 35.7 % (40-54); Hemoglobin 12.2 g/dL (13.0-16.5); Lymphocyte # 0.79 X10^3/ul (0.83-4.51); Lymphocyte % 7.1 % (19-41); Mean Corp Hgb Conc 34.2 g/dL (32-36); Mean Corpuscular Hgb 33.3 pg (27.0-32.0); Mean Corpuscular Volume 97.5 fL (80-94); Mean Platelet Vol. 9.2 fl (6.2-12.0); Monocyte# 1.48 X10^3/uL; Monocyte% 13.2 % (0-10); NRBC Flagged by Analyzer 0 % (0-5); Neutrophil # 8.75 X10^3/uL (2.7-7.7); Neutrophil % 78.3 % (47-70); Platelet Count 384 K/mm3 (150-450); RBC Distribution Width CV 13.1 % (11.6-14.6); RBC Distribution Width SD 46.6 fl (35.1-43.9); Red Blood Count 3.66 M/mm3 (4.6-6.2); White Blood Count 11.2 K/mm3 (4.4-11.0)
[2020-10-27 18:33] LABS: ALB/GLOB Ratio 0.7 RATIO (0.9-2.4); AST(SGOT) 48 U/L (15-37); Alanine Aminotransfer ALT/SGPT 42 U/L (16-61); Albumin, Serum 3.4 g/dL (3.2-5.0); Alkaline Phosphatase 91 U/L (45-117); Anion Gap 8 (5-15); BUN 7 mg/dL (7-18); BUN/Creat Ratio 7.1 RATIO (10-20); Calcium,Total 8.3 mg/dL (8.5-10.1); Chloride 87 mmol/L (98-107); Creatinine, Serum 0.98 mg/dL (0.70-1.30); EST Glomerular Filtration Rate 82 mL/min (>60); Est Glom Filt Rate - Afr Amer 99 mL/min (>60); Globulin 4.6 g/dL (2.2-4.2); Glucose 78 mg/dL (74-106); Lipase 92 U/L (73-393); Potassium 2.8 mmol/L (3.5-5.1); Sodium Level 125 mmol/L (136-145)
== END ==
PROVIDERS: PCP Family Medicine; Visit Provider Family Medicine
DX: R41.0 Disorientation, unspecified (principal)
CPT/HCPCS: 36415; 80053; 83690; 85025

== ENCOUNTER → 2020-11-04 09:45 | Outpatient (CLI) | payer MEDICARE, MEDICAID, SELFPAY ==
[2020-10-22 18:47] VITALS: BMI 25.7
[2020-11-04 12:25] LABS: Hematocrit 37.7 % (40-54); Hemoglobin 12.6 g/dL (13.0-16.5); Mean Corp Hgb Conc 33.4 g/dL (32-36); Mean Corpuscular Hgb 33.1 pg (27.0-32.0); Mean Platelet Vol. 8.5 fl (6.2-12.0); Platelet Count 591 K/mm3 (150-450); RBC Distribution Width CV 13.4 % (11.6-14.6); RBC Distribution Width SD 48.6 fl (35.1-43.9); Red Blood Count 3.81 M/mm3 (4.6-6.2); White Blood Count 8.7 K/mm3 (4.4-11.0)
[2020-11-04 12:30] LABS: Anion Gap 6 (5-15); BUN 7 mg/dL (7-18); Calcium,Total 8.6 mg/dL (8.5-10.1); Chloride 95 mmol/L (98-107); Creatinine, Serum 0.78 mg/dL (0.70-1.30); EST Glomerular Filtration Rate 107 mL/min (>60); Est Glom Filt Rate - Afr Amer 130 mL/min (>60); Glucose 83 mg/dL (74-106); Potassium 4.3 mmol/L (3.5-5.1); Sodium Level 128 mmol/L (136-145)
== END ==
PROVIDERS: PCP Family Medicine; Referring Provider Family Medicine; Visit Provider Family Medicine
DX: E87.6 Hypokalemia (principal)
CPT/HCPCS: 36415; 80048; 85027

== ENCOUNTER → 2020-11-16 11:25 | Outpatient (CLI) | payer MEDICARE, MEDICAID, SELFPAY ==
[2020-10-22 18:47] VITALS: BMI 25.7
[2020-11-16 15:10] LABS: Absolute Lymphocyte Count 0.65 X10^3/uL (0.83-4.51); Absolute Neutrophil Count 5.8 X10^3/uL (2.0-7.7); Basophil# 0.11 X10^3/uL; Basophil% 1.5 % (0-1); Eosinophil# 0.03 X10^3/uL; Eosinophils% 0.4 % (0-5); Hematocrit 37.8 % (40-54); Hemoglobin 12.6 g/dL (13.0-16.5); Lymphocyte # 0.65 X10^3/ul (0.83-4.51); Lymphocyte % 8.9 % (19-41); Mean Corp Hgb Conc 33.3 g/dL (32-36); Mean Platelet Vol. 8.9 fl (6.2-12.0); Monocyte# 0.66 X10^3/uL; NRBC Flagged by Analyzer 0 % (0-5); Neutrophil # 5.83 X10^3/uL (2.7-7.7); Neutrophil % 79.9 % (47-70); Platelet Count 505 K/mm3 (150-450); RBC Distribution Width CV 13.4 % (11.6-14.6); Red Blood Count 3.82 M/mm3 (4.6-6.2); White Blood Count 7.3 K/mm3 (4.4-11.0)
[2020-11-16 15:28] LABS: Anion Gap 6 (5-15); BUN 6 mg/dL (7-18); BUN/Creat Ratio 7.4 RATIO (10-20); Calcium,Total 8.7 mg/dL (8.5-10.1); Chloride 100 mmol/L (98-107); Creatinine, Serum 0.81 mg/dL (0.70-1.30); EST Glomerular Filtration Rate 102 mL/min (>60); Est Glom Filt Rate - Afr Amer 124 mL/min (>60); Glucose 75 mg/dL (74-106); Potassium 3.8 mmol/L (3.5-5.1); Sodium Level 134 mmol/L (136-145)
== END ==
PROVIDERS: PCP Family Medicine; Visit Provider Family Medicine
DX: E87.1 Hypo-osmolality and hyponatremia (principal); R10.9 Unspecified abdominal pain
CPT/HCPCS: 36415; 80048; 85025

== ENCOUNTER → 2020-11-16 13:42 | Outpatient (CLI) | payer MEDICARE, MEDICAID, SELFPAY ==
[2020-10-22 18:47] VITALS: BMI 25.7
--- NOTE | 2020-11-16 13:50 | US_ITS ---
STUDY: ABDOMINAL ULTRASOUND REASON FOR EXAM: Male, 65 years old. ABD PAIN . Left flank pain. TECHNIQUE: Transabdominal ultrasound was performed with real-time and static lange scale imaging. TECHNICAL QUALITY: Limited. Examination limited due to the patient?s condition. COMPARISON: None. FINDINGS: Liver: The liver measures 12.7 cm. There is normal echogenicity of the liver. The bile ducts are within normal limits. There is hepatic color flow. The direction of portal flow is hepatopetal. There is no demonstrated mass lesion. Portal vein measurement: Gallbladder: Normal distended gallbladder. The gallbladder wall measures 2 mm. There is a negative sonographic Brown''s sign. There is no pericholecystic fluid. There are no gallstones. Common Bile Duct (C.B.D.): The common bile duct measures 5 mm. Pancreas: Normal size of the head, body and tail of the pancreas. There is normal echogenicity of the pancreas. There is no demonstrated pancreatic mass or cyst. Right Kidney: Normal size of the right kidney. The right kidney measures 9.8 cm x 5.1 cm x 3.7 cm. Echogenic renal cortex suggesting medical renal disease. The right cortex measures 0.9 cm. Small 7 mm x 6 mm x 6 mm cyst. There is no right hydronephrosis. Left Kidney: Normal size of the left kidney. The left kidney measures 9.8 cm x 6.1cm x 5.1 cm. Normal renal cortex. The left cortex measures 1.3 cm. There is a 3.5 cm x 4.6 cm x 5.3 cm left renal cyst. There is no left hydronephrosis. Aorta: Unremarkable I.V.C.: The IVC is patent. There is no ascites. US/Abdomen Complete IMPRESSION: Small bilateral renal cysts more prominent on the left side. Electronically Signed: Haile Cho MD at 15:20 EDT , Service support ,
== END ==
PROVIDERS: PCP Family Medicine; Referring Provider Family Medicine; Visit Provider Family Medicine
DX: R10.9 Unspecified abdominal pain (principal); E87.1 Hypo-osmolality and hyponatremia
CPT/HCPCS: 36415; 76700; 80048; 85025

== ENCOUNTER → 2020-11-22 10:01 | Outpatient (CLI) | payer MEDICARE, MEDICAID, SELFPAY ==
--- NOTE | 2020-11-22 10:05 | RAD_ITS ---
STUDY: X-RAY - ABDOMEN/PELVIS REASON FOR EXAM: Male, 65 years old. ABDOMINAL PAIN TECHNIQUE: AP supine and upright views of the abdomen and pelvis. COMPARISON: None. FINDINGS: Mild increased linear markings at the right lung base suggestive of atelectasis and/or scar. There is an unremarkable bowel gas pattern. There is no demonstrated free abdominal air. The visualized liver, spleen and kidneys are grossly normal in size and morphology. Evidence of prior bilateral inguinal hernia repairs. There are diffuse degenerative changes of the visualized lumbar spine. Levoscoliosis. RAD/Abd Inc Decub and/or Erect IMPRESSION: Nonspecific bowel gas pattern. Electronically Signed: Haile Cho MD at 21:45 EDT , Service support ,
== END ==
PROVIDERS: PCP Family Medicine; Referring Provider Family Medicine; Visit Provider Family Medicine
DX: R10.9 Unspecified abdominal pain (principal)
CPT/HCPCS: 74019

== ENCOUNTER → 2020-12-07 16:02 | Outpatient (CLI) | payer MEDICARE, MEDICAID, SELFPAY ==
[2020-12-07 18:14] LABS: Anion Gap 8 (5-15); BUN 5 mg/dL (7-18); BUN/Creat Ratio 6.3 RATIO (10-20); Calcium,Total 8.6 mg/dL (8.5-10.1); Chloride 98 mmol/L (98-107); Creatinine, Serum 0.79 mg/dL (0.70-1.30); EST Glomerular Filtration Rate 105 mL/min (>60); Est Glom Filt Rate - Afr Amer 127 mL/min (>60); Free T3 1.9 pg/mL (2.18-3.98); Glucose 89 mg/dL (74-106); Potassium 3.9 mmol/L (3.5-5.1); Sodium Level 134 mmol/L (136-145); T4 Total, Thyroxin 10.8 ug/dL (4.5-12.1); Thyroid Stim Hormone (TSH) 3.17 uIU/mL (0.358-3.74)
== END ==
PROVIDERS: PCP Family Medicine; Referring Provider Family Medicine; Visit Provider Family Medicine
DX: E87.1 Hypo-osmolality and hyponatremia (principal); R63.4 Abnormal weight loss
CPT/HCPCS: 36415; 80048; 84436; 84443; 84481

== ENCOUNTER → 2021-03-29 09:30 | Outpatient (CLI) | payer MEDICARE, MEDICAID, SELFPAY ==
[2021-03-29 11:07] LABS: Anion Gap 7 (5-15); BUN 13 mg/dL (7-18); BUN/Creat Ratio 16.6 RATIO (10-20); Chloride 101 mmol/L (98-107); Cholesterol 151 mg/dL (200); Creatinine, Serum 0.78 mg/dL (0.70-1.30); EST Glomerular Filtration Rate 106 mL/min (>60); Est Glom Filt Rate - Afr Amer 129 mL/min (>60); Free T3 2.6 pg/mL (2.18-3.98); Glucose 95 mg/dL (74-106); High Density Lipoprotein 67 mg/dL; Sodium Level 137 mmol/L (136-145); T4 Free Direct 1.14 ng/dL (0.76-1.46); Thyroid Stim Hormone (TSH) 1.16 uIU/mL (0.358-3.74); Triglycerides 76 mg/dL; Very Low Density Lipoprotein 15 mg/dL (5-40)
== END ==
PROVIDERS: PCP Family Medicine; Referring Provider Family Medicine; Visit Provider Family Medicine
DX: E78.5 Hyperlipidemia, unspecified (principal); E03.9 Hypothyroidism, unspecified
CPT/HCPCS: 36415; 80048; 80061; 84439; 84443; 84481

== ENCOUNTER 2021-06-24 11:54 | Observation (INO) | payer MEDICARE, MEDICAID, SELFPAY ==
[2021-06-24 11:57] VITALS: BP 134/67; PULSE 84; RESP 16; TEMP 36.2; O2SAT 94; BMI 22.1
--- NOTE | 2021-06-24 12:23 | CT_ITS ---
STUDY: CT BRAIN WITHOUT CONTRAST REASON FOR EXAM: Male, 66 years old. HEADACHE head traumaHX-DOWNS SYNDROME, DEMENTIA TECHNIQUE: Transaxial CT imaging of the brain was performed without administration of intravenous contrast material. Individualized dose optimization techniques were used for this CT. COMPARISON: 04.19.17 FINDINGS: Normal calvarium. Normal soft tissues. Since the prior study, there has been a fracture of the left mandibular condyle. Acuity is difficult to discern. The mandibular head is displaced anteriorly in relation to the Left mandibular fossa. The left mandibular neck is noted anteriorly. Old frontal lobe infarcts. There is mild cerebral atrophy with widening of the extra-axial spaces and ventricular dilatation. There are areas of decreased attenuation within the white matter tracts of the supratentorial brain, consistent with microvascular disease changes. Normal basal ganglia and thalami. Normal brainstem. Normal cerebellum. There is no intracranial hemorrhage. There are no findings of an acute ischemic infarction. Normal visualized paranasal sinuses. ASPECTS 10 CT/Brain/Head without Contrast IMPRESSION: There are no acute intracranial findings. Since the prior study, there has been a fracture of the left mandibular condyle. Acuity is difficult to discern. The mandibular head is displaced anteriorly in relation to the Left mandibular fossa. The left mandibular neck is noted anteriorly. Electronically Signed: Indio Varela MD at 13:19 EST ,
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
--- NOTE | 2021-06-24 14:40 | RAD_ITS ---
STUDY: X-RAY - PELVIS AND RIGHT HIP REASON FOR EXAM: Male, 66 years old. Pain fall TECHNIQUE: XR Hip Unilateral with Pelvis when performed; 2-3 Views COMPARISON: None. FINDINGS: There is a non-specific bowel gas pattern. There are multiple calcified phleboliths. There are degenerative changes of the lumbar spine. Normal bilateral iliac wings, sacroiliac joints and visualized sacrum. Normal bilateral superior and inferior pubic rami. Normal pubic symphysis. Normal bilateral ischial tuberosities. Normal visualized femoral head. Normal acetabulum. Normal hip joint. RAD/HIP, UNI W/ Pelvis 2-3 Views IMPRESSION: No acute findings. Electronically Signed: Indio Varela MD at 15:08 EST ,
[2021-06-24 15:20] VITALS: BP 123/76; PULSE 88; RESP 16; O2SAT 96
[2021-06-24 15:21] LABS: Bacteria 0 SEEN /hpf (None Seen); Mucous, Urine 0 SEEN /hpf (<or=2+); Red Blood Cells-Urine 0 SEEN /hpf (0-5); Squamous Epithelial Cells - UA 0 SEEN /hpf (0-5); White Blood Cells 0 SEEN /hpf (0-5)
[2021-06-24 15:31] LABS: Color, Urine Yellow (Yellow); Glucose, Dipstick Normal (Normal); Ketone-Dipstick Negative (Negative); Leukocyte Esterase-Dipstick Negative /ul (Negative); Nitrite-Dipstick Negative (Negative); Occult Blood-Urine Negative /ul (Negative); Protein-Dipstick Negative (Negative); Specific Gravity, Urine 1.015 (1.002-1.030); Urine Bilirubin Dipstick Negative (Negative); Urine Clarity Clear (Clear); Urine Urobilinogen Normal (Normal)
--- NOTE | 2021-06-24 16:15 | HP.PCM.HOS_ITS ---
HPI - General General Date of Admission: 06/24/21 Date of Service: 06/24/21 Chief Complaint: Falls HPI Narrative The patient is a 66 y/o M living in [facility] w/ PMHx: Anxiety and Depression/OCD, Dementia unclear type with unclear behavioral disturbance history, HLD, GERD, Down syndrome, Hypothyroidism who presents to the [facility] ED on 06/24/21 with history of frequent falls, increased issues with urinary incontinence over the last several months and facility difficulty caring for his advancing needs with request for SNF evaluation. Work-up in the ED included T 97.2, heart rate 84, BP 134/67, respiratory rate 16, 96% on room air, urinalysis unremarkable. Given visit patient [facility] facility difficulty safely caring for him per discussion with staff and also with patient's family planned admission to the hospital for evaluation to set up transition to skilled facility. FOR[facility]LY [facility], [facility] Medical History (Updated 06/24/21 @ 16:[address] Adriana Stokes MD) Anxiety and depression Dementia Down syndrome Dyslipidemia Hypothyroid Nausea with vomiting, unspecified Home Medications fluoxetine 60 mg PO DAILY 11/06/13 [History Last Taken 06/18/17] pravastatin 40 mg PO QHS 11/23/13 [History Last Taken 06/18/17] buspirone 10 tab PO QHS 04/18/17 [History Last Taken 06/18/17] fluocinolone 0.01 % topical body oil 1 applic TOPICAL QDAY 05/17/17 [History Last Taken 06/18/17] ketoconazole 2 % shampoo 1 applic TOPICAL Q2W 05/17/17 [History Last Taken 06/18/17] aspirin 81 mg PO DAILY@0800 06/19/17 [History Last Taken 06/18/17] ondansetron HCl 4 mg PO Q6H PRN 06/19/17 [History Last Taken Unknown] hydrocodone-acetaminophen 1 ea PO Q6H PRN PRN 7 Days #14 tab 06/24/17 [Rx Last Taken Unknown] buspirone 5 mg PO DAILY 01/09/18 [History Last Taken Unknown] multivitamin 1 ea PO DAILY 01/09/18 [History Last Taken Unknown] omeprazole 20 mg PO DAILY 01/09/18 [History Last Taken Unknown] Acetaminophen 650 mg PO Q6H PRN 12/26/19 [History Last Taken Unknown] guaifenesin 600 mg PO Q12H PRN 12/26/19 [History Last Taken Unknown] levothyroxine 75 mg PO DAILY 12/26/19 [History Last Taken Unknown] melatonin 3 mg PO DAILY 12/26/19 [History Last Taken Unknown] donepezil [Aricept] 10 mg PO DAILY 10/22/20 [History Last Taken Unknown] loratadine 10 mg PO DAILY 10/22/20 [History Last Taken Unknown] quetiapine [Seroquel] 50 mg PO DAILY 10/22/20 [History Last Taken Unknown] quetiapine [Seroquel] 100 mg PO QHS 10/22/20 [History Last Taken Unknown] Allergy/AdvReac Type Severity Reaction Status Date / Time CARDBOARD Allergy Rash Uncoded 06/24/21 11:56 cardboard AdvReac Rash Uncoded 06/24/21 11:56 Family History (Updated 06/24/21 @ 16:[address] Adriana Stokes MD) Father Heart disease Myocardial infarction Cancer Mother CVA (cerebral vascular accident) Carotid artery disease Surgical History (Updated 06/24/21 @ 16:[address] Adriana Stokes MD) History of hernia surgery Social History (Updated 06/24/21 @ 16:[address] Adriana Stokes MD) housing: other details: retirement. Smoking Status: Never smoker alcohol intake: never substance use type: does not use ROS Review of Systems ROS Unobtainable: due to mental condition Vital Signs Vital Signs Vital Signs: 06/24/21 11:57 06/24/21 12:32 06/24/21 15:20 Temperature 97.2 F L Temperature Source Temporal Pulse Rate 84 88 Respiratory Rate 16 16 Respiratory Effort Normal Non-Labored Respiratory Depth Normal Respiratory Pattern Normal Blood Pressure 134/67 H 123/76 H Blood Pressure Mean 89 91 Pulse Ox 94 96 Oxygen Delivery Method Room Air Room Air Weight Weight: 113 lb 5.082 oz Body Mass Index (BMI) 22.1 Physical Exam Narrative Physical Examination: General: Awake, alert, not currently answering questions, following some commands, underlying Down syndrome with dementia concurrently, OCD tendencies in particular per discussion with staff present, seated upright in the ED bed, fatigued otherwise no acute distress. Skin: Normal color, normal turgor, no icterus, no cyanosis except occasional staged ecchymoses. HEENT: AT/NC, EOMI, PERRLA, dry MM, no carotid bruits or JVD noted. Lungs: Diminished, greater bases, appropriate effort, no rales, ronchi or wheezing. Heart: Currently regular rate and rhythm; no gallop, rub audible. Abdomen: Soft, no obvious grimacing with palpation, not markedly distended, mildly hyperactive bowel sounds, no obvious HSM. Extremities: No cyanosis, clubbing, or edema. Neurological: Patient awake, alert, oriented as noted, cognitive function decreased baseline with underlying Down syndrome and concurrent dementia, currently appears intact; pupils equally reactive to light and accommodation, cranial nerves II-XII grossly normal, moving all 4 extremities, no focal deficits, strength moderately to severely global decreased, has been progressively declining for several months. Psychiatric: Affect appears mildly flat, no acute evidence of depressive or anxiety feelings. Results Lab / Micro Data Labs: Laboratory Results - last 24 hr 06/24/21 : Urine Color Yellow, Urine Clarity Clear, Urine pH 8.0, Ur Specific [place] 1.015, Urine Protein Negative, Urine Glucose (UA) Normal, Urine Ketones Negative, Urine Occult Blood Negative, Urine Nitrite Negative, Urine Bilirubin Negative, Urine Urobilinogen Normal, Ur Leukocyte Esterase Negative, Urine RBC 0 SEEN, Urine WBC 0 SEEN, Ur Squamous Epith Cells 0 SEEN, Urine Bacteria 0 SEEN, Urine Mucus 0 SEEN Radiology Impression Brain CT 06/24/21 12:23 IMPRESSION: There are no acute intracranial findings. Since the prior study, there has been a fracture of the left mandibular condyle. Acuity is difficult to discern. The mandibular head is displaced anteriorly in relation to the Left mandibular fossa. The left mandibular neck is noted anteriorly. Electronically Signed: Indio Varela MD at 13:19 EST , Hip/Pelvis X-Ray 06/24/21 14:40 IMPRESSION: No acute findings. Electronically Signed: Indio Varela MD at 15:08 EST , Assessment & Plan Assessment/Plan (1) Fall: QUALIFIERS: Encounter type: initial encounter Qualified Code(s): W19.XXXA - Unspecified fall, initial encounter (2) Head injury: QUALIFIERS: Encounter type: initial encounter Qualified Code(s): S09.90XA - Unspecified injury of head, initial encounter PLAN: The patient is a 66 y/o M living in [facility] w/ PMHx: Anxiety and Depression/OCD, Dementia unclear type with unclear behavioral disturbance history, HLD, GERD, Down syndrome, Hypothyroidism who presents to the [facility] ED on 06/24/21 with history of frequent falls, increased issues with urinary incontinence over the last several months and facility difficulty caring for his advancing needs with request for SNF evaluation. #1. Mechanical falls, failure to thrive adult: Patient currently residing in a penitentiary, increasing difficulty does care for him safely, will admit to medical surgical floor, maintain on fall and aspiration precautions, judiciously hydrate, will request PT/OT/case management consultation for discharge planning as patient more appropriate to transition to skilled facility which family has requested and is amenable to given his need for advancing care. #2. Anxiety and depression/OCD tendencies: We will continue patient home BuSpar as well as fluoxetine regimen, clarifying Seroquel regimen as previously listed. #3. Down Syndrome complicated by Underlying Dementia concurrently, unclear behavioral disturbance history: Complicates presentation, will continue home aricept regimen, maintain on fall precautions, aspiration precautions, therapies and case management consulted. #4. Hypothyroidism: We will continue patient home levothyroxine regimen. #5. Hyperlipidemia: We will continue patient on statin therapy. #6. GERD: We will continue patient on PPI. #7. DVT prophylaxis: SCDs, Lovenox. #8. CODE STATUS: DNR-CC. Patient HCPOA/legal guardian Renetta Baileynury. Charges/Coding Visit Charges OBSV E&M: 11653 Initial observation care L2
[2021-06-24 17:53] VITALS: BP 123/76; PULSE 88; RESP 16; TEMP 36.1; O2SAT 96
[2021-06-24 17:54] VITALS: BMI 22.2
[2021-06-24 18:00] VITALS: BP 120/81; PULSE 92; RESP 16; TEMP 36.5; O2SAT 97
[2021-06-24] MEDS: 0.9% Normal Saline 1,000 ML 100 ML IV (18:54)
[2021-06-24] MEDS: 0.9% Saline Lock 10 ML Syringe IV (18:54)
[2021-06-24] MEDS: MELATONIN 3 MG TABLET PO (20:19)
[2021-06-24] MEDS: Donepezil HCl 5 MG Tablet PO (20:19)
[2021-06-24] MEDS: Pravastatin 40 MG Tablet PO (20:19)
[2021-06-24] MEDS: busPIRone 5 MG Tablet 10 MG PO (20:19)
[2021-06-24 20:20] VITALS: BP 120/73; PULSE 82; RESP 18; TEMP 37; O2SAT 93
[2021-06-24] MEDS: Magnesium Hydroxide 30 ML UDC PO (20:23)
[2021-06-25 02:56] VITALS: BP 103/67; PULSE 76; RESP 18; TEMP 36.9; O2SAT 93
[2021-06-25] MEDS: Levothyroxine 75 MCG Tablet PO (04:46)
[2021-06-25 05:50] LABS: Absolute Lymphocyte Count 1.01 X10^3/uL (0.83-4.51); Absolute Neutrophil Count 5.4 X10^3/uL (2.0-7.7); Basophil# 0.07 X10^3/uL; Basophil% 0.9 % (0-1); Eosinophil# 0.06 X10^3/uL; Eosinophils% 0.8 % (0-5); Hemoglobin 13.1 g/dL (13.0-16.5); Lymphocyte # 1.01 X10^3/ul (0.83-4.51); Lymphocyte % 13.3 % (19-41); Mean Corp Hgb Conc 35.4 g/dL (32-36); Mean Corpuscular Volume 98.9 fL (80-94); Mean Platelet Vol. 9.2 fl (6.2-12.0); Monocyte# 1.03 X10^3/uL; Monocyte% 13.6 % (0-10); NRBC Flagged by Analyzer 0 % (0-5); Neutrophil # 5.38 X10^3/uL (2.7-7.7); Platelet Count 384 K/mm3 (150-450); RBC Distribution Width CV 14.1 % (11.6-14.6); RBC Distribution Width SD 51.2 fl (35.1-43.9); Red Blood Count 3.74 M/mm3 (4.6-6.2); White Blood Count 7.6 K/mm3 (4.4-11.0)
[2021-06-25 06:17] LABS: ALB/GLOB Ratio 0.7 RATIO (0.9-2.4); AST(SGOT) 33 U/L (15-37); Alanine Aminotransfer ALT/SGPT 29 U/L (16-61); Albumin, Serum 3.1 g/dL (3.2-5.0); Alkaline Phosphatase 92 U/L (45-117); Anion Gap 4 (5-15); BUN 10 mg/dL (7-18); BUN/Creat Ratio 12.5 RATIO (10-20); Calcium,Total 8.3 mg/dL (8.5-10.1); Chloride 103 mmol/L (98-107); EST Glomerular Filtration Rate 103 mL/min (>60); Est Glom Filt Rate - Afr Amer 125 mL/min (>60); Estimated Creatinine Clearance 65.97 ml/min; Globulin 4.5 g/dL (2.2-4.2); Glucose 85 mg/dL (74-106); Potassium 3.6 mmol/L (3.5-5.1); Protein, Total 7.6 g/dL (6.4-8.2); Sodium Level 136 mmol/L (136-145)
--- NOTE | 2021-06-25 07:17 | PCM.PN.HOSP ---
Subjective Subjective Patient is a 66-year-old gentleman with history of Down syndrome resident at the skilled nursing who was found on the floor with abrasions on the forehead. Was transferred to the ED and subsequently admitted Objective Data Objective Data Vital Signs: Vital Signs Temp Pulse Resp BP Pulse Ox 98.5 F 76 18 103/67 93 06/25/21 02:56 06/25/21 02:56 06/25/21 02:56 06/25/21 02:56 06/25/21 02:56 Oxygen Delivery Method Room Air Weight: 50 kg Body Mass Index (BMI) 22.2 Intake & Output: Intake and Output for Last 24 Hours 06/23/21 06/24/21 06/25/21 23:59 23:59 23:59 Intake Total 991.67 / 991.67 Output Total 275 / 275 Balance 716.67 / 716.67 Lab / Micro Data Result Diagrams: 06/25/21 05:15 06/25/21 05:15 Labs: Laboratory Results - last 24 hr 06/24/21 : Urine Color Yellow, Urine Clarity Clear, Urine pH 8.0, Ur Specific [place] 1.015, Urine Protein Negative, Urine Glucose (UA) Normal, Urine Ketones Negative, Urine Occult Blood Negative, Urine Nitrite Negative, Urine Bilirubin Negative, Urine Urobilinogen Normal, Ur Leukocyte Esterase Negative, Urine RBC 0 SEEN, Urine WBC 0 SEEN, Ur Squamous Epith Cells 0 SEEN, Urine Bacteria 0 SEEN, Urine Mucus 0 SEEN 06/25/21 05:15: WBC 7.6, RBC 3.74 L, Hgb 13.1, Hct 37.0 L, MCV 98.9 H, MCH 35.0 H, MCHC 35.4, RDW Std Deviation 51.2 H, RDW Coeff of Hermann 14.1, Plt Count 384, MPV 9.2, Immature Gran % (Auto) 0.400, Neut % (Auto) 71.0 H, Lymph % (Auto) 13.3 L, Sully % (Auto) 13.6 H, Eos % (Auto) 0.8, Baso % (Auto) 0.9, Absolute Neuts (auto) 5.4, Absolute Lymphs (auto) 1.01, Nucleated RBC % 0 06/25/21 05:15: Sodium 136, Potassium 3.6, Chloride 103, Carbon Dioxide 29.0, Anion Gap 4 L, BUN 10, Creatinine 0.80, Estim Creat Clear Calc 65.97, Est GFR (MDRD) Af Amer 125, Est GFR (MDRD) Non-Af 103, BUN/Creatinine Ratio 12.5, Glucose 85, Calcium 8.3 L, Total Bilirubin 0.50, AST 33, ALT 29, Alkaline Phosphatase 92, Total Protein 7.6, Albumin 3.1 L, Globulin 4.5 H, Albumin/Globulin Ratio 0.7 L Radiography Diagnostic Testing: Radiology Impression Brain CT 06/24/21 12:23 IMPRESSION: There are no acute intracranial findings. Since the prior study, there has been a fracture of the left mandibular condyle. Acuity is difficult to discern. The mandibular head is displaced anteriorly in relation to the Left mandibular fossa. The left mandibular neck is noted anteriorly. Electronically Signed: Indio Varela MD at 13:19 EST , Hip/Pelvis X-Ray 06/24/21 14:40 IMPRESSION: No acute findings. Electronically Signed: Indio Varela MD at 15:08 EST , Physical Exam Narrative GENERAL: cooperative HEENT: Abrasions on the R forehead EYES; Anicteric, Normal Conjunctiva NECK; supple, normal thyroid, RESPIRATORY: Diminished to auscultation CARDIOVASCULAR: Regular S1 S2, GI: soft, normoactive bowel sounds, : No Renal angle tenderness; EXTREMITIES: No edema, no clubbing, MUSCULOSKELETAL: no muscle wasting NEURO: Awake; no lateralizing signs. SKIN: No Rash PSYCH; Flat affect Assessment & Plan Assessment/Plan (1) Fall: QUALIFIERS: Encounter type: initial encounter Qualified Code(s): W19.XXXA - Unspecified fall, initial encounter (2) Head injury: QUALIFIERS: Encounter type: initial encounter Qualified Code(s): S09.90XA - Unspecified injury of head, initial encounter PLAN: Patient is a 66-year-old gentleman with history of Down syndrome resident at the skilled nursing who was found on the floor with abrasions on the forehead. Was transferred to the ED and subsequently admitted 1. Physical deconditioning with multiple falls - Requested for PT OT eval and social worker health services to assist with discharge planning 2. Down syndrome -supportive care 3. Hypothyroidism - Patient is on levothyroxine home dose continued 4. Dyslipidemia -Patient is on statin therapy, continued at home dose 5. GERD -Patient on PPI 6. Depression with anxiety Patient is on fluoxetine as well as Seroquel at night 7. DVT prophylaxis -Lovenox Charges/Coding Visit Charges OBSV E&M: 63907 Subsequent observation care L2
[2021-06-25 08:31] VITALS: O2SAT 93
[2021-06-25 08:40] VITALS: BP 108/49; PULSE 66; RESP 18; TEMP 36.9; O2SAT 97
[2021-06-25] MEDS: Pantoprazole Sodium 20 MG Tablet PO (08:59)
[2021-06-25] MEDS: Enoxaparin 40 MG/0.4 ML Syringe SC (08:59)
[2021-06-25] MEDS: busPIRone 5 MG Tablet PO (08:59)
[2021-06-25] MEDS: Aspirin 81 MG TAB.CHEW PO (08:59)
[2021-06-25] MEDS: FLUoxetine 20 MG Capsule 40 MG PO (09:05)
[2021-06-25 14:40] VITALS: BP 114/65; PULSE 76; RESP 16; TEMP 36.7; O2SAT 96
[2021-06-25 20:13] VITALS: O2SAT 95
[2021-06-25 21:09] VITALS: BP 117/75; PULSE 77; RESP 18; TEMP 36.7; O2SAT 93
[2021-06-25] MEDS: Donepezil HCl 5 MG Tablet PO (21:12)
[2021-06-25] MEDS: Pravastatin 40 MG Tablet PO (21:12)
[2021-06-25] MEDS: MELATONIN 3 MG TABLET PO (21:12)
[2021-06-25] MEDS: busPIRone 5 MG Tablet 10 MG PO (21:12)
[2021-06-26] VITALS (8 sets, daily range): BP systolic 110–139; BP diastolic 65–79; PULSE 71–76; RESP 18–20; TEMP 36.6–37.2; O2SAT 93–98
[2021-06-26] MEDS: Levothyroxine 75 MCG Tablet PO (05:43)
[2021-06-26] MEDS: Aspirin 81 MG TAB.CHEW PO (08:31)
[2021-06-26] MEDS: Enoxaparin 40 MG/0.4 ML Syringe SC (09:52)
[2021-06-26] MEDS: busPIRone 5 MG Tablet PO (09:52)
[2021-06-26] MEDS: FLUoxetine 20 MG Capsule 40 MG PO (09:52)
[2021-06-26] MEDS: Pantoprazole Sodium 20 MG Tablet PO (09:52)
--- NOTE | 2021-06-26 10:53 | CASEMGMT ---
Social Work Note SW reviewed chart. Pt is from [facility] and has Legal Guardian Renetta and Jefferson Bennett. Pt is requiring SNF placement at this time. KYLAH placed a call to LG Renettagisela Guajardo. KYLAH introduced self and role at [facility]. Renetta confirms plan is SNF. Renetta confirms that pt is resident of [facility] and last October they were trying to get pt to SNF but the SNF had a COVID outbreak and pt was unable to go. Renetta states pt had a fall at [facility] Saturday and needs SNF level of care at this time. KYLAH asked Renetta about SNF options. Renetta asked that this worker call pt's Shake Loader Dipika Sanabria through [facility] Board of DD ([phone]) to inquire about SNF placement as Dipika lives in [place], works with [facility] and aware of SNF options. KYLAH informed Renetta that this worker will call Dipika and whichever choices for SNF she provides then this worker will send referrals to SNF. Renetta agreeable to plan. KYLAH placed a call to pt's Shake Loader Dipika Sanabria and left message regarding SNF options. SW waiting for call back. SW to send referrals to SNF. Pt will need PAS/RR completed and will trip the screen and approval from Board of DD will be needed. Plan: SNF pending acceptance and approval from Board of DD Olivia Rojas DROP WIRE ALINER, JOINER HELPER
--- NOTE | 2021-06-26 12:05 | CASEMGMT ---
Social Work Note SW received call from Dipika Sanabria at [facility] Board of DD stating her choices for SNF are 1. [facility]. [facility] [address] [facility]. Dipika states pt has no psychiatric history. KYLAH placed a call to [facility] and spoke with Misty in admissions and provided referral. KYLAH faxed initial referral to [facility]. Plan: [facility] pending acceptance and approval from Board of DD Olivia Rojas OUTDOOR STUDIES DIRECTOR, SPOILAGE WORKER
--- NOTE | 2021-06-26 14:30 | CASEMGMT ---
Social Work Note KYLAH updated pt's LG Renetta Guajardo that this worker spoke with Dipika at [facility] and was provided the preferred provider of [facility] for pt. KYLAH informed Renetta that referral has been made to [facility], waiting for call back regarding referral. KYLAH asked Renetta if she had Guardianship paperwork that she could fax/email to this worker and Renetta states she doens't have a copy, encouraged this worker to call Dipika or the [facility] that pt came from. Plan: [facility] pending acceptance Olivia Rojas SALES REVIEW CLERK, LINING STRAP CLOSER
--- NOTE | 2021-06-26 14:51 | CASEMGMT ---
BIB [facility] called pt guardian Renetta Barbosa to discuss DANIELS form with patient. RN KUSH explained DANIELS form, patient guardian voiced understanding. Pt guardian provided verbal consent to sign form. Witnessed by Sanjuanita BYRNES. Filed form in chart. Guardian denied further questions at this time.
--- NOTE | 2021-06-26 16:31 | CASEMGMT ---
Social Work Note SW placed a call to [facility] and spoke with Misty regarding referral. Misty states she provided referral to their DON who is reviewing referral. No determination on referral has been made at this time. Plan: [facility] pending acceptance Olivia BYRNES, AFTER SCHOOL TUTOR
--- NOTE | 2021-06-26 18:19 | PCM.PN.HOSP ---
Subjective Subjective Patient was seen and examined today, his brother is present in the room at the time of my examination, patient is nonverbal and does not respond to verbal cues, he is alert and does not appear to be in any distress. Objective Data Objective Data Vital Signs: Vital Signs Temp Pulse Resp BP Pulse Ox 97.8 F 76 18 114/65 98 06/26/21 16:59 06/26/21 16:59 06/26/21 16:59 06/26/21 16:59 06/26/21 16:59 Oxygen Delivery Method Room Air Weight: 49.8 kg Body Mass Index (BMI) 22.2 Intake & Output: Intake and Output for Last 24 Hours 06/24/21 06/25/21 06/26/21 23:59 23:59 23:59 Intake Total 1651.67 / 1651.67 1150 / 1150 Output Total 275 / 275 Balance 1376.67 / 1376.67 1150 / 1150 Lab / Micro Data Result Diagrams: 06/25/21 05:15 06/25/21 05:15 Physical Exam Const Constitutional Narrative: Patient has obvious cognitive impairment-he has the appearance of a Down syndrome patient HEENT moist oral mucous membranes Head and Scalp: normocephalic Eyes PERRL and EOMs intact bilaterally Resp normal respiratory effort, no retractions, no use of accessory muscles and clear to auscultation bilaterally Cardio regular rate, regular rhythm, S1 normal heart sound, S2 normal heart sound, no gallops and no clicks GI normal to inspection, nondistended, normoactive bowel sounds, soft to palpation, non-tender and non-distended Skin Skin Narrative: Patient has an abrasion on his right forehead Neuro CN's II-XII intact bilaterally Neuro Narrative: Patient has obvious cognitive impairment, he is alert but nonverbal Sensorium / Orientation: awake Psych Psych Narrative: Patient is alert but has cognitive impairment Assessment & Plan Assessment/Plan (1) Fall: QUALIFIERS: Encounter type: initial encounter Qualified Code(s): W19.XXXA - Unspecified fall, initial encounter PLAN: 1. Acute debility-PT and OT will continue to see the patient, he will need placement in a retirement facility for ongoing care #2 Down syndrome-supportive care will be given #3 hypothyroidism-patient remains on Synthroid #4 hyperlipidemia-patient is on a statin #5 GERD-patient is currently on a PPI #6 depression/qmwfxmx-qodkxlk-yefvaet is on Prozac and Seroquel #7 cognitive impairment-etiology unclear, suspect possible dementia on a backdrop of Down syndrome Charges/Coding Visit Charges Inpatient E&M: 11005 Subs Hosp L2
[2021-06-26] MEDS: MELATONIN 3 MG TABLET PO (21:49)
[2021-06-26] MEDS: busPIRone 5 MG Tablet 10 MG PO (21:50)
[2021-06-26] MEDS: Donepezil HCl 5 MG Tablet PO (21:50)
[2021-06-26] MEDS: Pravastatin 40 MG Tablet PO (21:51)
[2021-06-27 03:18] VITALS: BP 117/65; PULSE 63; RESP 16; TEMP 36.7; O2SAT 95
[2021-06-27] MEDS: Levothyroxine 75 MCG Tablet PO (05:49)
[2021-06-27] MEDS: Aspirin 81 MG TAB.CHEW PO (07:23)
[2021-06-27 09:08] VITALS: BP 115/67; PULSE 71; RESP 18; TEMP 36.8; O2SAT 96
[2021-06-27 09:12] VITALS: BP 131/72; PULSE 76; RESP 18; TEMP 36.8; O2SAT 96
[2021-06-27 09:13] VITALS: RESP 18
--- NOTE | 2021-06-27 09:16 | CASEMGMT ---
Social Work Note SW placed a call to [facility] and spoke with Misty regarding referral. Misty states she just asked her DON about referral, waiting for determination. Olivia Rojas HAND STRAIGHTENER, DELI MANAGER
[2021-06-27] MEDS: Pantoprazole Sodium 20 MG Tablet PO (10:29)
[2021-06-27] MEDS: FLUoxetine 20 MG Capsule 40 MG PO (10:29)
[2021-06-27] MEDS: Enoxaparin 40 MG/0.4 ML Syringe SC (10:29)
[2021-06-27] MEDS: busPIRone 5 MG Tablet PO (10:29)
--- NOTE | 2021-06-27 11:38 | CASEMGMT ---
Addendum entered by Yanely Johnson 06/27/21 12:21: The guardianship letter was received, placed on chart. NAHOMI Lora Original Note: Social [facility], it's not on the website. SW called, they do not have record of it. SW called pt's window caser Dipika Sanabria. She states she thinks she has the paperwork and if so will email it to this SW, she is working from home today however. [facility] lives in [place] message left. SW called the [facility], they have a copy and will fax it to this SW. NAHOMI Lora
--- NOTE | 2021-06-27 14:42 | CASEMGMT ---
Social Work Note SW received call from Misty at [facility] stating they are not able to accept pt. Per previous conversations, next choice for SNF is [facility]. KYLAH placed a call to Jose at [facility] and provided referral. KYLAH faxed referral to [facility]. KYLAH placed a call to pt's KUSH Bar and updated her that [facility] is not able to accept pt and referral was sent to [facility]. Dipika states that pt's niece mentioned [facility]. KYLAH informed Dipika that this worker can also send referral there. Dipika agreeable to referral also being sent to [facility]. KYLAH placed a call to Stacy at [facility] and provided referral. KYLAH faxed referral to [facility]. Plan: SNF pending acceptance and approval from Board of DD Olivia Rojas NON DESTRUCTIVE TESTING INSPECTOR, TEST PREPARATION TUTOR
[2021-06-27 14:47] VITALS: BP 116/76; PULSE 79; RESP 18; TEMP 36.4; O2SAT 92
--- NOTE | 2021-06-27 18:25 | PN.HOSP_ITS ---
Subjective Subjective Patient was seen and examined today, he is alert and does not appear in any distress, he is able to say a few words to this examiner but not carry on a conversation. Objective Data Objective Data Vital Signs: Vital Signs Temp Pulse Resp BP Pulse Ox 97.5 F L 79 18 116/76 92 06/27/21 14:47 06/27/21 14:47 06/27/21 14:47 06/27/21 14:47 06/27/21 14:47 Oxygen Delivery Method Room Air Weight: 50 kg Body Mass Index (BMI) 22.2 Intake & Output: Intake and Output for Last 24 Hours 06/25/21 06/26/21 06/27/21 23:59 23:59 23:59 Intake Total 1651.67 / 1651.67 1150 / 1350 1200 / 1200 Output Total 275 / 275 Balance 1376.67 / 1376.67 1150 / 1350 1200 / 1200 Lab / Micro Data Result Diagrams: 06/25/21 05:15 06/25/21 05:15 Physical Exam Narrative Constitutional Narrative: Patient has obvious cognitive impairment-he has the appearance of a Down syndrome patient HEENT moist oral mucous membranes Head and Scalp: normocephalic Eyes PERRL and EOMs intact bilaterally Resp normal respiratory effort, no retractions, no use of accessory muscles and clear to auscultation bilaterally Cardio regular rate, regular rhythm, S1 normal heart sound, S2 normal heart sound, no gallops and no clicks GI normal to inspection, nondistended, normoactive bowel sounds, soft to palpation, non-tender and non-distended Skin Skin Narrative: Patient has an abrasion on his right forehead Neuro CN's II-XII intact bilaterally Neuro Narrative: Patient has obvious cognitive impairment, he is alert and minimally verbal Sensorium / Orientation: awake Psych Psych Narrative: Patient is alert but has cognitive impairment Assessment & Plan Assessment/Plan (1) Fall: QUALIFIERS: Encounter type: initial encounter Qualified Code(s): W19.XXXA - Unspecified fall, initial encounter PLAN: 1. Acute debility-PT and OT will continue to see the patient, he will need placement in a nursing home facility for ongoing care, we are currently attempting to obtain approval for this #2 Down syndrome-supportive care will be given #3 hypothyroidism-patient remains on Synthroid #4 hyperlipidemia-patient is on a statin #5 GERD-patient is currently on a PPI #6 depression/jcbssmz-nxwpeub-ttgmhqe is on Prozac and Seroquel #7 cognitive impairment-etiology unclear, suspect possible dementia on a backdrop of Down syndrome/developmental delay Charges/Coding Visit Charges Inpatient E&M: 79434 Subs Hosp L2
[2021-06-27 20:40] VITALS: BP 113/65; PULSE 78; RESP 18; TEMP 37; O2SAT 94
[2021-06-27] MEDS: Donepezil HCl 5 MG Tablet PO (21:40)
[2021-06-27] MEDS: MELATONIN 3 MG TABLET PO (21:40)
[2021-06-27] MEDS: Pravastatin 40 MG Tablet PO (21:40)
[2021-06-27] MEDS: busPIRone 5 MG Tablet 10 MG PO (21:40)
[2021-06-28 03:36] VITALS: BP 110/60; PULSE 79; RESP 16; TEMP 36.7; O2SAT 93
[2021-06-28] MEDS: Levothyroxine 75 MCG Tablet PO (06:24)
[2021-06-28 09:13] VITALS: BP 117/65; PULSE 80; RESP 14; TEMP 36.9; O2SAT 91
[2021-06-28] MEDS: Enoxaparin 40 MG/0.4 ML Syringe SC (09:20)
[2021-06-28] MEDS: Pantoprazole Sodium 20 MG Tablet PO (09:20)
[2021-06-28] MEDS: busPIRone 5 MG Tablet PO (09:20)
[2021-06-28] MEDS: FLUoxetine 20 MG Capsule 40 MG PO (09:20)
[2021-06-28] MEDS: Aspirin 81 MG TAB.CHEW PO (09:20)
--- NOTE | 2021-06-28 10:20 | CASEMGMT ---
Addendum entered by Olivia Rojas 06/28/21 11:05: KYLAH hasn't heard anything back from [facility]. KYLAH faxed referral to [facility] as pt's CM mentioned [facility] as a possibly SNF for pt as well. KYLAH placed a call to Marley at [facility] and provided referral. Original Note: Social Work Note KYLAH placed a call to Jose at [facility] and left message regarding referral. KYLAH placed a call to Stacy at [facility] regarding referral. Stacy states they are not able to accept pt. Plan: SNF pending acceptance Olivia Rojas SPINNING LATHE OPERATOR HYDRAULIC, HARDBOARD FACTORY WORKER
[2021-06-28 14:45] VITALS: BP 117/79; PULSE 87; RESP 14; TEMP 36.8; O2SAT 92
--- NOTE | 2021-06-28 14:58 | CASEMGMT ---
Social Work Note KYLAH received message from Marley at [facility] stating they can accept pt. KYLAH placed a call to Jose at [facility] and asked about referral. Jose states they can accept pt, asked about pt's vaccination status. KYLAH placed a call to pt's CM through Board of [facility] and updated her that [facility] cannot accept pt but [facility] and [facility] is able to accept pt. Dipika states she would prefer [facility] but will call pt's JOBY Jackson to inquire about her choice. KYLAH asked Dipika about pt's vaccination status. Dipika states pt is vaccinated. KYLAH received message from Dipika states she spoke with Renetta and both agree that preferred SNF is [facility]. KYLAH placed a call back to Dipika and left message that PAS/RR was submitted and to be aware that assessment will need to be completed through [facility] Board of DD so pt can discharge to SNF. KYLAH placed a call to pt's JOBY Jackson and updated her that [facility] can accept pt and explained PAS/RR process and pt will need approval through [facility] before pt can discharge to [facility]. Renetta states understanding, agreeable to plan. Renetta asked for [facility] Ombudsman number as she states her dad came to [facility] with pt and initially visited pt and then his tried to visit pt the other day and was told that she could not visit pt due to policy of only allowing one visitor. Renetta states pt has Down Syndrome, dementia, and is just waiting at this time for approval to leave. Renetta states any social interaction is important to pt. KYLAH provided [facility] Ombudsman number to Renetta. KYLAH spoke with RN Sub Arc Operator Sanjuanita Lee and updated her on pt's situation. Sanjuanita Lee gave approval for second visitor Kylah Lynne to be added to pt's visitor. KYLAH updated mash tub cooker operator. Plan: [facility] pending approval through Board of DD Olivia Rojas SHUTTLE REPAIRER, VALVE AND REGULATOR REPAIRER
--- NOTE | 2021-06-28 17:15 | PCM.PN.HOSP ---
Subjective Subjective Patient was seen and examined today, he does not appear to be in any distress, he is sitting in a chair and appears comfortable. He is minimally verbal at this time. Objective Data Objective Data Vital Signs: Vital Signs Temp Pulse Resp BP Pulse Ox 98.3 F 87 14 117/79 92 06/28/21 14:45 06/28/21 14:45 06/28/21 14:45 06/28/21 14:45 06/28/21 14:45 Oxygen Delivery Method Room Air Weight: 50 kg Body Mass Index (BMI) 22.2 Intake & Output: Intake and Output for Last 24 Hours 06/26/21 06/27/21 06/28/21 23:59 23:59 23:59 Intake Total 1150 / 1350 1200 / 1500 550 / 550 Balance 1150 / 1350 1200 / 1500 550 / 550 Lab / Micro Data Result Diagrams: 06/25/21 05:15 06/25/21 05:15 Physical Exam Narrative Constitutional Narrative: Patient has obvious cognitive impairment-he has the appearance of a Down syndrome patient HEENT moist oral mucous membranes Head and Scalp: normocephalic Eyes PERRL and EOMs intact bilaterally Resp normal respiratory effort, no retractions, no use of accessory muscles and clear to auscultation bilaterally Cardio regular rate, regular rhythm, S1 normal heart sound, S2 normal heart sound, no gallops and no clicks GI normal to inspection, nondistended, normoactive bowel sounds, soft to palpation, non-tender and non-distended Skin Skin Narrative: Patient has an abrasion on his right forehead Neuro CN's II-XII intact bilaterally Neuro Narrative: Patient has obvious cognitive impairment, he is alert but nonverbal Sensorium / Orientation: awake Psych Psych Narrative: Patient is alert but has cognitive impairment Assessment & Plan Assessment/Plan (1) Fall: QUALIFIERS: Encounter type: initial encounter Qualified Code(s): W19.XXXA - Unspecified fall, initial encounter PLAN: 1. Acute debility-PT and OT will continue to see the patient, he will need placement in a penitentiary facility for ongoing care, we are currently attempting to obtain approval for this. #2 Down syndrome-supportive care will be given #3 hypothyroidism-patient remains on Synthroid #4 hyperlipidemia-patient is on a statin #5 GERD-patient is currently on a PPI #6 depression/porekaa-cjsdpcr-rknuxlp is on Prozac and Seroquel #7 cognitive impairment-etiology unclear, suspect possible dementia on a backdrop of Down syndrome/developmental delay-no changes in medications at this time Charges/Coding Visit Charges Inpatient E&M: 68650 Subs Hosp L2
[2021-06-28 21:00] VITALS: BP 114/65; PULSE 70; RESP 18; TEMP 36.8; O2SAT 93
[2021-06-28] MEDS: MELATONIN 3 MG TABLET PO (21:06)
[2021-06-28] MEDS: busPIRone 5 MG Tablet 10 MG PO (21:06)
[2021-06-28] MEDS: Pravastatin 40 MG Tablet PO (21:06)
[2021-06-28] MEDS: Donepezil HCl 5 MG Tablet PO (21:06)
[2021-06-29 03:36] VITALS: BP 129/73; PULSE 74; RESP 16; TEMP 36.6; O2SAT 94
[2021-06-29] MEDS: Levothyroxine 75 MCG Tablet PO (06:09)
[2021-06-29 08:00] VITALS: BP 114/74; PULSE 79; RESP 18; TEMP 36.6; O2SAT 93
[2021-06-29] MEDS: busPIRone 5 MG Tablet PO (09:41)
[2021-06-29] MEDS: Pantoprazole Sodium 20 MG Tablet PO (09:41)
[2021-06-29] MEDS: FLUoxetine 20 MG Capsule 40 MG PO (09:41)
[2021-06-29] MEDS: Aspirin 81 MG TAB.CHEW PO (09:41)
[2021-06-29] MEDS: Enoxaparin 40 MG/0.4 ML Syringe SC (09:42)
[2021-06-29 12:00] VITALS: BP 105/69; PULSE 96; RESP 16; TEMP 36.6; O2SAT 92
[2021-06-29 15:57] VITALS: BP 104/59; PULSE 81; RESP 18; TEMP 36.8; O2SAT 94
--- NOTE | 2021-06-29 16:15 | CASEMGMT ---
Social Work Note SW checked HENS website, no determination has been made from [facility]. Olivia Rojas SOIL AND PLANT SCIENTIST, OVEN STRIPPER
[2021-06-29 20:18] VITALS: BP 102/71; PULSE 82; RESP 18; TEMP 36.3; O2SAT 92
[2021-06-29] MEDS: Donepezil HCl 5 MG Tablet PO (20:28)
[2021-06-29] MEDS: Pravastatin 40 MG Tablet PO (20:28)
[2021-06-29] MEDS: busPIRone 5 MG Tablet 10 MG PO (20:28)
[2021-06-29] MEDS: MELATONIN 3 MG TABLET PO (20:28)
[2021-06-30 02:11] VITALS: BP 117/73; PULSE 76; RESP 18; TEMP 36.9; O2SAT 94
[2021-06-30] MEDS: Levothyroxine 75 MCG Tablet PO (06:11)
[2021-06-30 08:20] VITALS: BP 114/72; PULSE 79; RESP 16; TEMP 36.9; O2SAT 92
--- NOTE | 2021-06-30 09:41 | CASEMGMT ---
Social Work Note KYLAH placed a call to pt's CM Dipika Sanabria through Board of DD regarding pt's review for PAS/RR. Dipika states she had reached out to Lela the other day to update her that review will be needed for pt. Dipika states a review was done last October for pt when he was going to [facility] so she is not sure if Lela will just need to update it. Dipika states if she doesn't hear an update from Lela in the next few hours, she will reach out again. KYLAH also emailed Lela at [facility] Board of DD for update on status of pt's review. KYLAH spoke with Marley at [facility] and updated her that Board of DD determination is still pending. Plan: [facility] pending determination from Board of DD has been made Olivia Rojas ASSISTANT REFINERY OPERATOR, HAWK MISSILE AIR DEFENSE ARTILLERY
[2021-06-30] MEDS: Pantoprazole Sodium 20 MG Tablet PO (09:45)
[2021-06-30] MEDS: Enoxaparin 40 MG/0.4 ML Syringe SC (09:46)
[2021-06-30] MEDS: FLUoxetine 20 MG Capsule 40 MG PO (09:46)
[2021-06-30] MEDS: Aspirin 81 MG TAB.CHEW PO (09:46)
[2021-06-30] MEDS: busPIRone 5 MG Tablet PO (09:46)
--- NOTE | 2021-06-30 12:55 | CASEMGMT ---
Addendum entered by Olivia Rojas 06/30/21 16:49: SW spoke with RN. RN updated pt's LG Renetta that pt will remain at [facility] through the weekend as approval from [facility] is still needed. Original Note: Social Work Note SW received email from Lela at [facility] Board of stating [facility] just uploaded pt's PAS/RR screen today and by rule, Lela has 7 business days to complete the review. Pt will be at [facility] through the weekend as approval from [facility] will be needed. KYLAH placed a call to Marley at [facility] and updated her. Marley states understanding. Plan: [facility] pending approval from [facility] Olivia Rojas MOVIE MACHINE OPERATOR, TERMITE EXTERMINATOR HELPER
[2021-06-30 14:25] VITALS: BP 110/71; PULSE 78; RESP 16; TEMP 37.3; O2SAT 94
--- NOTE | 2021-06-30 15:01 | PCM.PN.HOSP ---
Subjective Subjective Patient was seen and examined today, he did not appear in any distress, he was able to say a few words to his examiner today. Objective Data Objective Data Vital Signs: Vital Signs Temp Pulse Resp BP Pulse Ox 98.4 F 79 16 114/72 92 06/30/21 08:20 06/30/21 08:20 06/30/21 08:20 06/30/21 08:20 06/30/21 08:20 Oxygen Delivery Method Room Air Weight: 50.8 kg Body Mass Index (BMI) 22.2 Intake & Output: Intake and Output for Last 24 Hours 06/28/21 06/29/21 06/30/21 23:59 23:59 23:59 Intake Total 670 / 670 100 / 100 150 / 150 Balance 670 / 670 100 / 100 150 / 150 Lab / Micro Data Result Diagrams: 06/25/21 05:15 06/25/21 05:15 Physical Exam Narrative Constitutional Narrative: Patient has obvious cognitive impairment-he has the appearance of a Down syndrome patient HEENT moist oral mucous membranes Head and Scalp: normocephalic Eyes PERRL and EOMs intact bilaterally Resp normal respiratory effort, no retractions, no use of accessory muscles and clear to auscultation bilaterally Cardio regular rate, regular rhythm, S1 normal heart sound, S2 normal heart sound, no gallops and no clicks GI normal to inspection, nondistended, normoactive bowel sounds, soft to palpation, non-tender and non-distended Skin Skin Narrative: Patient has an abrasion on his right forehead Neuro CN's II-XII intact bilaterally Neuro Narrative: Patient has obvious cognitive impairment, he is alert but nonverbal Sensorium / Orientation: awake Psych Psych Narrative: Patient is alert but has cognitive impairment Assessment & Plan Assessment/Plan (1) Fall: QUALIFIERS: Encounter type: initial encounter Qualified Code(s): W19.XXXA - Unspecified fall, initial encounter PLAN: 1. Acute debility-PT and OT will continue to see the patient, he will need placement in a residential facility for ongoing care, we are currently attempting to obtain approval for this. #2 Down's syndrome-supportive care will be given #3 hypothyroidism-patient remains on Synthroid #4 hyperlipidemia-patient is on a statin #5 GERD-patient is currently on a PPI #6 depression/pbuwpdt-tsfzzon-kgcphux is on Prozac and Seroquel #7 cognitive impairment-secondary to Down syndrome and dementia. Charges/Coding Visit Charges Inpatient E&M: 37029 Subs Hosp L2
[2021-06-30 20:51] VITALS: BP 102/63; PULSE 86; RESP 18; TEMP 37.2; O2SAT 93
[2021-06-30] MEDS: MELATONIN 3 MG TABLET PO (20:56)
[2021-06-30] MEDS: Pravastatin 40 MG Tablet PO (20:56)
[2021-06-30] MEDS: busPIRone 5 MG Tablet 10 MG PO (20:56)
[2021-06-30] MEDS: Donepezil HCl 5 MG Tablet PO (20:57)
[2021-07-01 03:54] VITALS: BP 99/76; PULSE 75; RESP 18; TEMP 36.4; O2SAT 94
[2021-07-01] MEDS: Levothyroxine 75 MCG Tablet PO (03:57)
[2021-07-01] MEDS: Enoxaparin 40 MG/0.4 ML Syringe SC (09:40)
[2021-07-01] MEDS: busPIRone 5 MG Tablet PO (09:40)
[2021-07-01] MEDS: Aspirin 81 MG TAB.CHEW PO (09:40)
[2021-07-01] MEDS: FLUoxetine 20 MG Capsule 40 MG PO (09:42)
[2021-07-01] MEDS: Pantoprazole Sodium 20 MG Tablet PO (09:43)
[2021-07-01 09:52] VITALS: BP 105/72; PULSE 76; RESP 18; TEMP 36.8; O2SAT 94
[2021-07-01 14:24] VITALS: BP 97/63; PULSE 88; RESP 16; TEMP 37.1; O2SAT 93
--- NOTE | 2021-07-01 16:56 | PN.HOSP_ITS ---
Subjective Subjective Patient was seen and examined today he is alert, he only speaks a few words when spoken to-he does not carry on a conversation. Patient appears in no distress. Objective Data Objective Data Vital Signs: Vital Signs Temp Pulse Resp BP Pulse Ox 98.7 F 88 16 97/63 93 07/01/21 14:24 07/01/21 14:24 07/01/21 14:24 07/01/21 14:24 07/01/21 14:24 Oxygen Delivery Method Room Air Weight: 50.6 kg Body Mass Index (BMI) 22.2 Intake & Output: Intake and Output for Last 24 Hours 06/29/21 06/30/21 07/01/21 23:59 23:59 23:59 Intake Total 100 / 100 350 / 350 350 / 350 Balance 100 / 100 350 / 350 350 / 350 Lab / Micro Data Result Diagrams: 06/25/21 05:15 06/25/21 05:15 Physical Exam Narrative Constitutional Narrative: Patient has obvious cognitive impairment-he has the appearance of a Down syndrome patient HEENT moist oral mucous membranes Head and Scalp: normocephalic Eyes PERRL and EOMs intact bilaterally Resp normal respiratory effort, no retractions, no use of accessory muscles and clear to auscultation bilaterally Cardio regular rate, regular rhythm, S1 normal heart sound, S2 normal heart sound, no gallops and no clicks GI normal to inspection, nondistended, normoactive bowel sounds, soft to palpation, non-tender and non-distended Skin Skin Narrative: Patient has an abrasion on his right forehead Neuro CN's II-XII intact bilaterally Neuro Narrative: Patient has obvious cognitive impairment, he is alert but n onverbal Sensorium / Orientation: awake Psych Psych Narrative: Patient is alert but has cognitive impairment Assessment & Plan Assessment/Plan (1) Fall: QUALIFIERS: Encounter type: initial encounter Qualified Code(s): W19.XXXA - Unspecified fall, initial encounter PLAN: 1. Acute debility-PT and OT will continue to see the patient, he will need placement in a custodial facility for ongoing care, we are curre ntly attempting to obtain approval for this from the state. #2 Down's syndrome-supportive care will be given #3 hypothyroidism-patient remains on Synthroid #4 hyperlipidemia-patient is on a statin #5 GERD-patient is currently on a PPI #6 depression/crlijas-ehjntdh-uilpwin is on Prozac and Seroquel #7 cognitive impairment-secondary to Down syndrome and dementia. Charges/Coding Visit Charges Inpatient E&M: 87793 Subs Hosp L2
[2021-07-01 20:10] VITALS: BP 103/76; PULSE 86; RESP 18; TEMP 37.1; O2SAT 90
[2021-07-01] MEDS: Pravastatin 40 MG Tablet PO (21:33)
[2021-07-01] MEDS: busPIRone 5 MG Tablet 10 MG PO (21:33)
[2021-07-01] MEDS: Donepezil HCl 5 MG Tablet PO ×2 (21:33)
[2021-07-01] MEDS: MELATONIN 3 MG TABLET PO (21:33)
[2021-07-02 01:59] VITALS: BP 101/68; PULSE 74; RESP 16; TEMP 36.7; O2SAT 92
--- NOTE | 2021-07-02 05:11 | NURSING ---
NO VOID THIS SHIFT - BLADDER SCAN = 200ML. WILL ENCOURAGE PO FLUIDS & CONTINUE TO MONITOR
[2021-07-02] MEDS: Levothyroxine 75 MCG Tablet PO (06:54)
[2021-07-02] MEDS: Enoxaparin 40 MG/0.4 ML Syringe SC (10:17)
[2021-07-02] MEDS: FLUoxetine 20 MG Capsule 40 MG PO (10:18)
[2021-07-02] MEDS: Pantoprazole Sodium 20 MG Tablet PO (10:18)
[2021-07-02] MEDS: Aspirin 81 MG TAB.CHEW PO (10:18)
[2021-07-02] MEDS: busPIRone 5 MG Tablet PO (10:19)
[2021-07-02 10:32] VITALS: BP 117/80; PULSE 92; RESP 16; TEMP 37.2; O2SAT 94
--- NOTE | 2021-07-02 12:16 | PN.HOSP_ITS ---
Subjective Subjective Patient was seen and examined today, he is resting quietly and does not appear to be in any distress, he is nonverbal. Objective Data Objective Data Vital Signs: Vital Signs Temp Pulse Resp BP Pulse Ox 98.9 F 92 16 117/80 94 07/02/21 10:32 07/02/21 10:32 07/02/21 10:32 07/02/21 10:32 07/02/21 10:32 Oxygen Delivery Method Room Air Weight: 49.8 kg Body Mass Index (BMI) 22.2 Intake & Output: Intake and Output for Last 24 Hours 06/30/21 07/01/21 07/02/21 23:59 23:59 23:59 Intake Total 350 / 350 1000 / 1000 60 / 60 Output Total 0 / 0 Balance 350 / 350 1000 / 1000 60 / 60 Lab / Micro Data Result Diagrams: 06/25/21 05:15 06/25/21 05:15 Physical Exam Narrative Constitutional Narrative: Patient has obvious cognitive impairment-he has the appearance of a Down syndrome patient HEENT moist oral mucous membranes Head and Scalp: normocephalic Eyes PERRL and EOMs intact bilaterally Resp normal respiratory effort, no retractions, no use of accessory muscles and clear to auscultation bilaterally Cardio regular rate, regular rhythm, S1 normal heart sound, S2 normal heart sound, no gallops and no clicks GI normal to inspection, nondistended, normoactive bowel sounds, soft to palpation, non-tender and non-distended Skin Skin Narrative: Patient has an abrasion on his right forehead Neuro CN's II-XII intact bilaterally Neuro Narrative: Patient has obvious cognitive impairment, he is alert but nonverbal Sensorium / Orientation: awake Psych Psych Narrative: Patient is alert but has cognitive impairment Assessment & Plan Assessment/Plan (1) Fall: QUALIFIERS: Encounter type: initial encounter Qualified Code(s): W19.XXXA - Unspecified fall, initial encounter PLAN: 1. Acute debility-PT and OT will continue to see the patient, he will need placement in a care home facility for ongoing care, we are currently attempting to obtain approval for this from the state. His overall medical status appears stable at this time. #2 Down's syndrome-supportive care will be given #3 hypothyroidism-patient remains on Synthroid #4 hyperlipidemia-patient is on a statin #5 GERD-patient is currently on a PPI #6 depression/wslhtdk-lgcysbu-jdbxluo is on Prozac and Seroquel #7 cognitive impairment-secondary to Down syndrome and dementia. Charges/Coding Visit Charges Inpatient E&M: 53425 Subs Hosp L2
[2021-07-02 15:52] VITALS: BP 100/66; PULSE 86; RESP 16; TEMP 36.6; O2SAT 94
[2021-07-02 19:58] VITALS: BP 111/62; PULSE 68; RESP 16; TEMP 37.2; O2SAT 97
[2021-07-02] MEDS: busPIRone 5 MG Tablet 10 MG PO (20:40)
[2021-07-02] MEDS: Pravastatin 40 MG Tablet PO (20:41)
[2021-07-02] MEDS: MELATONIN 3 MG TABLET PO (20:43)
[2021-07-03] VITALS (8 sets, daily range): BP systolic 98–112; BP diastolic 66–73; PULSE 67–96; RESP 16–20; TEMP 36.6–37.1; O2SAT 86–95
[2021-07-03] MEDS: Levothyroxine 75 MCG Tablet PO (05:49)
--- NOTE | 2021-07-03 09:47 | CASEMGMT ---
Discharge Rn Clinical Trials [facility] Faxed over updates from the weekend on patient. Lilian Colindres Discharge Rn Clinical Trials
[2021-07-03] MEDS: FLUoxetine 20 MG Capsule 40 MG PO (11:11)
[2021-07-03] MEDS: Enoxaparin 40 MG/0.4 ML Syringe SC (11:11)
[2021-07-03] MEDS: Pantoprazole Sodium 20 MG Tablet PO (11:11)
[2021-07-03] MEDS: Aspirin 81 MG TAB.CHEW PO (11:11)
--- NOTE | 2021-07-03 11:53 | CASEMGMT ---
Addendum entered by Olivia Rojas 07/03/21 14:42: SW checked HENS website, no determination has been made. Original Note: Social Work Note SW received email from Lela at [facility] requesting updated clinicals on pt. KYLAH faxed updated clinicals to Lela per her request. Plan: [facility] pending approval from Board of DD Olivia Rojas CHIROPRACTIC PRACTICE MANAGER, TOBACCO GRADER
--- NOTE | 2021-07-03 14:08 | PCM.PN.HOSP ---
Subjective Subjective Patient was seen and examined today, he does not appear to be in any distress, he answers simple questions with 1 or 2 words. He does not carry on a conversation. Objective Data Objective Data Vital Signs: Vital Signs Temp Pulse Resp BP Pulse Ox 98.1 F 67 16 110/67 95 07/03/21 08:29 07/03/21 08:29 07/03/21 08:29 07/03/21 08:29 07/03/21 08:29 Oxygen Delivery Method Room Air Weight: 49.158 kg Body Mass Index (BMI) 22.2 Intake & Output: Intake and Output for Last 24 Hours 07/01/21 07/02/21 07/03/21 23:59 23:59 23:59 Intake Total 1000 / 1000 760 / 980 280 / 280 Output Total 0 / 0 0 / 0 Balance 1000 / 1000 760 / 980 280 / 280 Lab / Micro Data Result Diagrams: 06/25/21 05:15 06/25/21 05:15 Physical Exam Narrative Constitutional Narrative: Patient has obvious cognitive impairment-he has the appearance of a Down syndrome patient HEENT moist oral mucous membranes Head and Scalp: normocephalic Eyes PERRL and EOMs intact bilaterally Resp normal respiratory effort, no retractions, no use of accessory muscles and clear to auscultation bilaterally Cardio regular rate, regular rhythm, S1 normal heart sound, S2 normal heart sound, no gallops and no clicks GI normal to inspection, nondistended, normoactive bowel sounds, soft to palpation, non-tender and non-distended Skin Skin Narrative: Patient has an abrasion on his right forehead Neuro CN's II-XII intact bilaterally Neuro Narrative: Patient has obvious cognitive impairment, he is alert but nonverbal Sensorium / Orientation: awake Psych Psych Narrative: Patient is alert but has cognitive impairment Assessment & Plan Assessment/Plan (1) Fall: QUALIFIERS: Encounter type: initial encounter Qualified Code(s): W19.XXXA - Unspecified fall, initial encounter PLAN: 1. Acute debility-PT and OT will continue to see the patient, he will need placement in a group home facility for ongoing care, we are currently attempting to obtain approval for this from the State. His overall medical status appears stable at this time. #2 Down's syndrome-supportive care will be given #3 hypothyroidism-patient remains on Synthroid #4 hyperlipidemia-patient is on a statin #5 GERD-patient is currently on a PPI #6 depression/qqyzijb-xkvcpxw-tdhwnke is on Prozac and Seroquel #7 cognitive impairment-secondary to Down syndrome and dementia. Charges/Coding Visit Charges Inpatient E&M: 67943 Subs Hosp L2
[2021-07-03] MEDS: busPIRone 5 MG Tablet PO (14:43)
--- NOTE | 2021-07-03 15:17 | NURSING ---
SPo2 86% on RA. Fingers are warm and there is a good wave form on the spo2 monitor. oxygen applied at 2L NC at this time. Spo2 up to 93% on the 2L NC. Pt states his oxygen tubing hurts. encouraged pt to keep on. Will notify Dr. Murray.
[2021-07-03] MEDS: busPIRone 5 MG Tablet 10 MG PO (20:59)
[2021-07-03] MEDS: MELATONIN 3 MG TABLET PO (21:00)
[2021-07-03] MEDS: Pravastatin 40 MG Tablet PO (21:00)
[2021-07-03] MEDS: Donepezil HCl 5 MG Tablet PO (21:00)
[2021-07-04] MEDS: Levothyroxine 75 MCG Tablet PO (06:04)
[2021-07-04 06:11] VITALS: BP 102/64; PULSE 65; RESP 16; TEMP 36.9; O2SAT 94
--- NOTE | 2021-07-04 09:08 | CASEMGMT ---
Addendum entered by Olivia Rojas 07/04/21 14:31: SW checked HENS jeffery, no determination has been made. Original Note: Social Work Note KYLAH emailed Lela at [facility] Board of DD requesting update on pt's review. Olivia Rojas SLIDER ASSEMBLER, FAIRGROUND OPERATOR
[2021-07-04] MEDS: Enoxaparin 40 MG/0.4 ML Syringe SC (11:16)
[2021-07-04] MEDS: FLUoxetine 20 MG Capsule 40 MG PO (11:16)
[2021-07-04] MEDS: Pantoprazole Sodium 20 MG Tablet PO (11:16)
[2021-07-04] MEDS: busPIRone 5 MG Tablet PO (11:16)
[2021-07-04] MEDS: Aspirin 81 MG TAB.CHEW PO (11:16)
--- NOTE | 2021-07-04 11:49 | CASEMGMT ---
Social Work Note Per admissions counselor questions, pt has completed HCPOA and LW and not provided copies to [facility]. Of note, pt does have Legal Guardian, Renetta Guajardo and guardianship paperwork is on pt's chart. Olivia Rojas LANDSCAPE GARDENER, CHIMNEY BUILDER HELPER
[2021-07-04 15:07] VITALS: BP 106/63; PULSE 70; RESP 17; TEMP 37.1; O2SAT 97
--- NOTE | 2021-07-04 16:49 | CASEMGMT ---
Social Work Note KYLAH checked HENS website, no determination has been made yet. KYLAH placed a call to Marley at [facility] and left message that pt will remain at [facility] today still as no determination has been made from [facility]. KYLAH placed a call to pt's Legal Guardian Renetta and left message that SW is still waiting for approval from [facility], pt will remain at [facility] tonight. Plan: [facility] pending approval from [facility] Olivia Rojas COMPOSITE SCIENCE TEACHER, LEAD EMBEDDED SOFTWARE ENGINEER
--- NOTE | 2021-07-04 17:14 | PCM.PN.HOSP ---
Subjective Subjective Patient was seen and examined today, he is resting quietly and does not talk with me during my examination. There has been no overall change in the patient's medical condition over the past several days. Objective Data Objective Data Vital Signs: Vital Signs Temp Pulse Resp BP Pulse Ox 98.7 F 70 17 106/63 97 07/04/21 15:07 07/04/21 15:07 07/04/21 15:07 07/04/21 15:07 07/04/21 15:07 Oxygen Flow Rate (L/min) 2 Oxygen Delivery Method Room Air Weight: 49 kg Body Mass Index (BMI) 22.2 Intake & Output: Intake and Output for Last 24 Hours 07/02/21 07/03/21 07/04/21 23:59 23:59 23:59 Intake Total 760 / 980 400 / 400 Output Total 0 / 0 300 / 300 Balance 760 / 980 100 / 100 Lab / Micro Data Result Diagrams: 06/25/21 05:15 06/25/21 05:15 Physical Exam Narrative Narrative Constitutional Narrative: Patient has obvious cognitive impairment-he has the appearance of a Down syndrome patient HEENT moist oral mucous membranes Head and Scalp: normocephalic Eyes PERRL and EOMs intact bilaterally Resp normal respiratory effort, no retractions, no use of accessory muscles and clear to auscultation bilaterally Cardio regular rate, regular rhythm, S1 normal heart sound, S2 normal heart sound, no gallops and no clicks GI normal to inspection, nondistended, normoactive bowel sounds, soft to palpation, non-tender and non-distended Skin Skin Narrative: Patient has an abrasion on his right forehead Neuro CN's II-XII intact bilaterally Neuro Narrative: Patient has obvious cognitive impairment, he is alert but nonverbal Sensorium / Orientation: awake Psych Psych Narrative: Patient is alert but has cognitive impairment Assessment & Plan Assessment/Plan (1) Fall: QUALIFIERS: Encounter type: initial encounter Qualified Code(s): W19.XXXA - Unspecified fall, initial encounter PLAN: 1. Acute debility-PT and OT will continue to see the patient, he will need placement in a prison facility for ongoing care, we are currently attempting to obtain approval for this from the State. His overall medical status appears stable at this time. It is likely we will not obtain permission for the patient to be placed for several days. #2 Down's syndrome-supportive care will be given #3 hypothyroidism-patient remains on Synthroid #4 hyperlipidemia-patient is on a statin #5 GERD-patient is currently on a PPI #6 depression/ygodmxq-ofoubwb-aguuodv is on Prozac and BuSpar, patient was on Seroquel as an outpatient 50 mg twice a day, he has not received Seroquel since he has been admitted here to the hospital, I will not restart the patient's Seroquel at this time-patient appears sleepy at times as it is and I do not want to complicate things by starting him back on Seroquel. #7 cognitive impairment-secondary to Down syndrome and dementia. Patient is on Aricept, I have elected to increase the dose to 10 mg daily, he has been at 5 mg daily since his admission. Charges/Coding Visit Charges Inpatient E&M: 26718 Subs Hosp L2
[2021-07-04 20:59] VITALS: BP 117/73; PULSE 66; RESP 18; TEMP 37.6; O2SAT 95
[2021-07-04] MEDS: Acetaminophen 325 MG Tablet 650 MG PO (21:03)
[2021-07-04] MEDS: MELATONIN 3 MG TABLET PO (21:03)
[2021-07-04] MEDS: Pravastatin 40 MG Tablet PO (21:03)
[2021-07-04] MEDS: Donepezil HCl 10 MG Tablet PO (21:03)
[2021-07-04] MEDS: busPIRone 5 MG Tablet 10 MG PO (21:03)
[2021-07-05 03:32] VITALS: BP 105/70; PULSE 66; RESP 18; TEMP 36.8; O2SAT 94
[2021-07-05] MEDS: Levothyroxine 75 MCG Tablet PO (03:37)
[2021-07-05 08:00] VITALS: BP 109/51; PULSE 64; RESP 18; TEMP 36.5; O2SAT 94
[2021-07-05] MEDS: Aspirin 81 MG TAB.CHEW PO (08:05)
[2021-07-05] MEDS: FLUoxetine 20 MG Capsule 40 MG PO (10:40)
[2021-07-05] MEDS: Pantoprazole Sodium 20 MG Tablet PO (10:40)
[2021-07-05] MEDS: Enoxaparin 40 MG/0.4 ML Syringe SC (10:41)
[2021-07-05] MEDS: busPIRone 5 MG Tablet PO (10:41)
--- NOTE | 2021-07-05 11:36 | PCM.TXEXTCAR ---
Diet 06/24/21 17:59 Diet: Regular - General Food consistency:: Regular Liquid Consistency:: Regular/Thin Type of Dietary Supplement:: Ensure Compact Is pt able to select menu?: No Diet Comments: likes choclate or vanilla ensure Routine Orders/Code Status Routine Lab Work: CBC (Weekly) and BMP (Weekly) Code Status: DNRCC-A Wound(s) forehead: Wound Type: Abrasion Suggestions for Active Care Change Position every (hours): 2 Hours to sit in a chair: 6 Times a day to sit in chair: 3 Therapies Weight Bearing: Full weight bearing Physical Therapy: Eval and Treat Occupational Therapy: Eval and Treat Problem/Diagnosis (1) Fall: Status: Acute Allergies/Procedures Done in Hospital Allergies CARDBOARD Allergy (Uncoded 06/24/21 11:56) Rash cardboard Adverse Reaction (Uncoded 06/24/21 11:56) Rash Procedures: None Type of Care/Length of Stay Estimated LOS: More Than 30 Days Type of Care Needed: Skilled Rehab Potential: Fair Prognosis: Fair Additional Orders/Day of Discharge Day of Discharge: 07/05/21 Discharge Plan Admission Admit Date/Time: 06/24/21 16:37 Attending Provider: Gillian Ivey Primary Care Provider: Jeff Herndon Instructions Additional Instructions / Restrictions: Follow primary care physician. The CAT scan of his brain, x-ray of his hip and pelvis and urinalysis are all normal. Discharge Orders/Prescriptions Prescriptions: No Action ketoconazole 2 % shampoo 1 applic TOPICAL QMWF RF: 0 fluocinolone 0.01 % topical body oil 0.01 % oil 1 applic TOPICAL QMWF RF: 0 fluoxetine 20 MG tablet 40 mg PO DAILY RF: 0 pravastatin 40 MG tablet 40 mg PO QHS RF: 0 buspirone 5 MG tablet 10 tab PO QHS RF: 0 aspirin 81 MG tablet,chewable 81 mg PO DAILY@0800 RF: 0 multivitamin 1 EACH tablet 1 ea PO DAILY RF: 0 buspirone 5 MG tablet 5 mg PO DAILY RF: 0 omeprazole 20 MG capsule 20 mg PO DAILY RF: 0 levothyroxine 75 MCG tablet 75 mg PO DAILY RF: 0 melatonin 3 MG capsule 3 mg PO DAILY RF: 0 Acetaminophen 650 mg PO Q6H PRN (Reason: Pain Or Fever) RF: 0 guaifenesin 600 MG tablet extended release 12hr 600 mg PO Q12H PRN (Reason: Congestion) RF: 0 donepezil [Aricept] 10 mg Tablet 5 mg PO DAILY RF: 0 quetiapine [Seroquel] 100 mg Tablet 100 mg PO QHS RF: 0 quetiapine [Seroquel] 50 mg Tablet 50 mg PO DAILY RF: 0 Referrals / Follow Up: Jeff Herndon MD [Primary Care Provider] - 1 Week if not improving
--- NOTE | 2021-07-05 11:37 | PCM.DC.SUM ---
Providers Date of Admission: 06/24/21 Date of Discharge: 07/05/21 Primary Care Physician: Dr. Jeff Herndon MD Reason For Visit: FALL, FTT ADULT Diagnosis Discharge Diagnosis (1) Fall: Status: Acute Code(s): W19.XXXA - Unspecified fall, initial encounter Qualifiers: Encounter type: initial encounter Qualified Code(s): W19.XXXA - Unspecified fall, initial encounter (2) Debility: Status: Acute Code(s): R53.81 - Other malaise Medications at Discharge Home Medications fluoxetine 40 mg PO DAILY 11/06/13 pravastatin 40 mg PO QHS 11/23/13 buspirone 10 tab PO QHS 04/18/17 fluocinolone 0.01 % topical body oil 1 applic TOPICAL QMWF 05/17/17 ketoconazole 2 % shampoo 1 applic TOPICAL QMWF 05/17/17 aspirin 81 mg PO DAILY@0800 06/19/17 buspirone 5 mg PO DAILY 01/09/18 multivitamin 1 ea PO DAILY 01/09/18 omeprazole 20 mg PO DAILY 01/09/18 Acetaminophen 650 mg PO Q6H PRN 12/26/19 guaifenesin 600 mg PO Q12H PRN 12/26/19 levothyroxine 75 mg PO DAILY 12/26/19 melatonin 3 mg PO DAILY 12/26/19 donepezil [Aricept] 5 mg PO DAILY 10/22/20 food supplemt, lactose-reduced [Ensure Enlive] 120 ml PO 4X/DAY #0 ml 07/05/21 Hospital Course Operations None Procedures - (Brain CT done at admission showed no acute intracranial findings and evidence of a left mandibular fracture that appears to be older but was new since his last study 04/19/2017 on 04/19/2017) Summary of Care Provided Minutes Spent on Discharge: 38 Hospital Course: Mr. Bailey is a 66-year-old white male with a history of Down syndrome and dementia-suspected Alzheimer's type with a history of behavioral disturbances who presented to the emergency department at [facility] on 06/24/2021 with falls. He evidently had been suffering more frequent falls and issues with urinary incontinence over the last several months at the facility at which he was living and given his advancing needs there was request for skilled facility evaluation. His vital signs on admission were unremarkable. His UA was unremarkable. His CBC and BMP on admission were unremarkable. He had been living in a assisted prior to this admission but again given his slow decline patient's family desired to have him admitted to the hospital and evaluated with plans for transition needing to a skilled facility at discharge. A CT was done in the emergency department and compared to previous study that was done on 04/19/2017 and showed no acute findings however did show a nonspecific age mandibular fracture. The patient was not having any issues with movement of the jaw or eating. He was seen by therapy services and deemed appropriate for continued therapy after discharge and having skilled needs. He was eventually cleared by the [facility] board for MRDD to be sent to a skilled facility and was discharged to the [facility] on 07/05/2021 in stable condition. He was somewhat sleepy upon presentation and his Seroquel was held for his hospitalization. With discontinuation of this he was able to be more awake and less sedated and more interactive. We continued to hold this at discharge maintain him on his other home psychiatric medications to include BuSpar and fluoxetine no other medication changes were made. Discharge diagnoses: Falls Debility Down syndrome Alzheimer's type dementia Hypothyroidism Hyperlipidemia GERD Depression Anxiety Physical Exam Const alert, no apparent distress and average body habitus Constitutional Narrative: Elderly confused white male sitting up in a chair, watching television, appears comfortable and nontoxic, follows commands however response time is somewhat slow General Appearance: cooperative, comfortable, well kempt and well developed Orientation / Consciousness: awake Exam Limitations: other limitations HEENT normocephalic, head/scalp atraumatic, hearing grossly normal bilaterally and moist oral mucous membranes HEENT Narrative: Mallampati is 2, no thrush Eyes PERRL, EOMs intact bilaterally and conjunctivae normal Eyes Narrative: No scleral icterus Neck no lymphadenopathy, supple and no JVD Resp normal respiratory effort, no retractions, no use of accessory muscles and clear to auscultation bilaterally Auscultation: Negative for crackles, rales, rhonchi or wheezes Cardio regular rate, regular rhythm, S1 normal heart sound, S2 normal heart sound, no murmurs, no rub, no gallops, no clicks and no JVD GI normal to inspection, nondistended, normoactive bowel sounds, soft to palpation, non-tender and non-distended Extremity no clubbing, cyanosis or edema Extremity Narrative: 2+ pedal pulses Skin no rashes or lesions noted, no wounds, skin turgor normal and no jaundice Neuro CN's II-XII intact bilaterally, moves all extremities and no focal motor deficits Sensorium / Orientation: awake and alert Psych affect normal Psych Narrative: Patient very common cooperative Weight / BMI Weight Weight: 49.169 kg Body Mass Index (BMI) 22.2 ABG / Lab / Microbiology Data Result Diagrams: 06/25/21 05:15 06/25/21 05:15 Meaningful Use Info Meaningful Use Diagnoses (Choose all that apply): None applicable Discharge Plan Admission Admit Date/Time: 06/24/21 16:37 Primary Reason for Your Visit: Acute debility/falls Attending Provider: Gillian Ivey Primary Care Provider: Jeff Herndon Instructions Additional Instructions / Restrictions: Follow primary care physician. The CAT scan of his brain, x-ray of his hip and pelvis and urinalysis are all normal. Discharge Orders/Prescriptions Prescriptions: New Ensure Enlive 0.08 gram-1.5 kcal/mL Liquid 120 ml PO 4X/DAY Qty: 0 RF: 0 Continued ketoconazole 2 % shampoo 1 applic TOPICAL QMWF RF: 0 fluocinolone 0.01 % topical body oil 0.01 % oil 1 applic TOPICAL QMWF RF: 0 fluoxetine 20 MG tablet 40 mg PO DAILY RF: 0 pravastatin 40 MG tablet 40 mg PO QHS RF: 0 buspirone 5 MG tablet 10 tab PO QHS RF: 0 aspirin 81 MG tablet,chewable 81 mg PO DAILY@0800 RF: 0 multivitamin 1 EACH tablet 1 ea PO DAILY RF: 0 buspirone 5 MG tablet 5 mg PO DAILY RF: 0 omeprazole 20 MG capsule 20 mg PO DAILY RF: 0 levothyroxine 75 MCG tablet 75 mg PO DAILY RF: 0 melatonin 3 MG capsule 3 mg PO DAILY RF: 0 Acetaminophen 650 mg PO Q6H PRN (Reason: Pain Or Fever) RF: 0 guaifenesin 600 MG tablet extended release 12hr 600 mg PO Q12H PRN (Reason: Congestion) RF: 0 donepezil [Aricept] 10 mg Tablet 5 mg PO DAILY RF: 0 Discontinued quetiapine [Seroquel] 100 mg Tablet 100 mg PO QHS RF: 0 quetiapine [Seroquel] 50 mg Tablet 50 mg PO DAILY RF: 0 Referrals / Follow Up: Jeff Herndon MD [Primary Care Provider] - See Referral Note (As needed) Disposition Disposition (needs filled in before D/C Order can be placed): [facility] Facility Charges/Coding Visit Charges Inpatient E&M: 79531 SNF Disch >30 Min
--- NOTE | 2021-07-05 12:32 | CASEMGMT ---
Addendum entered by Olivia Rojas 07/05/21 13:30: KYLAH arranged transportation via cot for 3:00pm. Transportation form completed and placed on SNF folder and copy on pt's chart. RN updated on transportation time. KYLAH placed a call to Marley at [facility] and updated her on transportation time. KYLAH placed a call to pt's JOBY Jackson and updated her on discharge and transportation time to [facility]. KYLAH placed a call to pt's KUSH Bar at [facility] and updated her on discharge and transportation time to [facility]. Dipika states she will let pt's [facility] know and staff from the Care Home will take pt's clothes and belongings from the Care Home to [facility]. KYLAH in to speak with pt. KYLAH introduced self and role at [facility]. KYLAH asked pt if he knows Renetta and pt states yeah. KYLAH informed pt that this worker has been working with Renetta to get pt to a SNF and pt will be leaving today at 3:00pm to go [facility]. Pt didn't respond to this worker. Per chart pt is mostly nonverbal. Plan: [facility] skilled today under PAS/RR level of care with Physician's transporting pt via cot at 3:00pm NURIA Harding Original Note: Social Work Note KYLAH received approval letter from [facility] stating [facility] has approved pt for SNF level of care. KYLAH placed a call to Marley at [facility]. Marley states pt can discharge to them today and request letter of approval from [facility]. KYLAH faxed letter of approval from [facility]. KYLAH updated physician. KYLAH faxed completed discharge paperwork to [facility] including transfer to extended care facility, signed medication list, any scripts, PAS/RR, PAS/RR results and approval letter from [facility]. Original in SNF folder and copy on pt's chart. SW to fax COVID test/tool to [facility] once completed. Plan: [facility] skilled today under PAS/RR Olivia BYRNES, LOADING UNIT OPERATOR
[2021-07-05 13:29] VITALS: BP 104/48; PULSE 79; RESP 16; TEMP 37.1; O2SAT 94
--- NOTE | 2021-07-05 13:46 | NURSING ---
report called to Ivett Swann at [facility]
--- NOTE | 2021-07-05 15:12 | NURSING ---
verbal report given to transport
== END 2021-07-05 15:22 | disposition skilled nursing facility (03) ==
LOC: ED 16:33 → MS3 16:47
PROVIDERS: Admitting Provider Family Medicine; Emergency Provider Emergency Medicine; PCP Family Medicine; Visit Provider Internal Medicine
DX: S20.211A Contusion of right front wall of thorax, initial encounter (principal); G30.9 Alzheimer's disease, unspecified; F02.80 Dementia in other diseases classified elsewhere, unspecified severity, without behavioral disturbance, psychotic disturbance, mood disturbance, and anxiety; F41.9 Anxiety disorder, unspecified; R53.81 Other malaise; Q90.9 Down syndrome, unspecified; W19.XXXA Unspecified fall, initial encounter; E03.9 Hypothyroidism, unspecified; S00.81XA Abrasion of other part of head, initial encounter; K21.9 Gastro-esophageal reflux disease without esophagitis; F32.A Depression, unspecified; R32 Unspecified urinary incontinence; E78.5 Hyperlipidemia, unspecified; Z79.899 Other long term (current) drug therapy; Z79.82 Long term (current) use of aspirin; Z79.51 Long term (current) use of inhaled steroids; Z79.890 Hormone replacement therapy; Y92.9 Unspecified place or not applicable
CPT/HCPCS: 36415; 70450; 73502; 80053; 81001; 85025; 87426; 96360; 96361; 96372; 97110; 97162; 97166; 97530; 97535; 99218; 99283; J7030; A4216; G0378

== ENCOUNTER 2021-07-22 07:22 | Emergency (ER) | payer MEDICARE, MEDICAID, SELFPAY ==
[2021-07-22 07:23] VITALS: BP 128/69; PULSE 74; RESP 16; TEMP 36.4; O2SAT 93; BMI 22.4
--- NOTE | 2021-07-22 07:35 | CT_ITS ---
STUDY: CT BRAIN WITHOUT CONTRAST REASON FOR EXAM: Male, 66 years old. seizure RADIATION DOSAGE (If Supplied By Facility): CTDIvol = ( 44.99 ) mGy, DLP = ( 762.36 ) mGycm TECHNIQUE: Transaxial CT imaging of the brain was performed without administration of intravenous contrast material. Individualized dose optimization techniques were used for this CT. COMPARISON: 06/24/2021 FINDINGS: Normal soft tissue structures. Normal calvarium. There is moderate cerebral atrophy with widening of the extra-axial spaces and ventricular dilatation. There are areas of decreased attenuation within the white matter tracts of the supratentorial brain, consistent with microvascular disease changes. Normal basal ganglia and thalami. Normal brainstem. Normal cerebellum. There is no intracranial hemorrhage. 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 Normal visualized paranasal sinuses. CT/Brain/Head without Contrast IMPRESSION: Chronic involutional changes of the brain. Electronically Signed: Steven Campo MD at 8:35 EDT ,
--- NOTE | 2021-07-22 07:36 | EKG12_ITS ---
Test Reason : Blood Pressure : / mmHG Vent. Rate : 076 BPM Atrial Rate : 076 BPM P-R Int : 152 ms QRS Dur : 074 ms QT Int : 400 ms P-R-T Axes : 040 013 005 degrees QTc Int : 450 ms Normal sinus rhythm Normal ECG Confirmed by LONNIE MAYER, LEXX ([id number]), proposal editor FLACO LAMAR ([id number]) on 07/25/2021 10:50:19 AM Referred By: MICHAEL Confirmed By:LEXX FLEMING MD
--- NOTE | 2021-07-22 07:37 | EDS_ITS ---
HPI History of Present Illness Chief Complaint: Seizure Detail of Chief Complaint: Possible seizure Informant: EMS and SNF Narrative Narrative: Patient presents the emergency department after possible seizure this morning. Aid at extended-care facility was helping patient on the toilet when he had what was described as a whole body tonic-clonic seizure lasted about a minute. Patient has no history of seizures. Patient was postictal afterwards. Patient normally nonverbal. He has history of MR and Down's. He is not had any recent illness. Patient unable to give history. Prior similar symptoms: No PFSH PFS Medical History (Updated 07/22/21 @ 10:[address] Sampson Valadez, DO) Anxiety and depression Dementia Down syndrome Dyslipidemia Hypothyroid Nausea with vomiting, unspecified Home Medications fluoxetine 20 mg PO DAILY 11/06/13 [History Last Taken 06/18/17] pravastatin 40 mg PO DAILY 11/23/13 [History Last Taken 06/18/17] buspirone 10 tab PO QHS 04/18/17 [History Last Taken 06/18/17] fluocinolone 0.01 % topical body oil 1 applic TOPICAL DAILY 05/17/17 [History Last Taken 06/18/17] aspirin 81 mg PO DAILY@0800 06/19/17 [History Last Taken 06/18/17] buspirone 5 mg PO DAILY 01/09/18 [History Last Taken Unknown] multivitamin 1 ea PO DAILY 01/09/18 [History Last Taken Unknown] omeprazole 20 mg PO DAILY 01/09/18 [History Last Taken Unknown] Acetaminophen 650 mg PO Q6H PRN 12/26/19 [History Last Taken Unknown] guaifenesin 600 mg PO Q12H PRN 12/26/19 [History Last Taken Unknown] levothyroxine 75 mcg PO DAILY 12/26/19 [History Last Taken Unknown] melatonin 3 mg PO QHS 12/26/19 [History Last Taken 06/23/21] donepezil [Aricept] 5 mg PO QHS 10/22/20 [History Last Taken Unknown] Allergy/AdvReac Type Severity Reaction Status Date / Time CARDBOARD Allergy Rash Uncoded 07/22/21 07:36 cardboard AdvReac Rash Uncoded 07/22/21 07:36 Family History (Updated 06/24/21 @ 16:[address] Adriana Stokes MD) Father Heart disease Myocardial infarction Cancer Mother CVA (cerebral vascular accident) Carotid artery disease Surgical History History of hernia surgery Social History (Updated 06/24/21 @ 16:[address] Adriana Stokes MD) housing: other details: [facility]. Smoking Status: Never smoker alcohol intake: never substance use type: does not use ROS ROS ED ROS Narrative Seizure Review of Systems ROS Unobtainable: due to mental condition Constitutional Constitutional ED: Reports systems reviewed and no addt'l complaints, except as documented; Denies body ache(s), change in weight or chills Eyes Eyes: Denies acute decrease in peripheral vision, change in vision, double vision or loss of vision ENT ENT ED: Reports none; Denies ear pain, lip swelling, loss taste/smell, neck pain, otalgia or sore throat Cardiovascular Cardiovascular: Reports none; Denies abdominal pain, chest pain with activity, leg edema, lightheadedness, palpitations, rapid heart rate or syncope Respiratory/Chest Respiratory/Chest: Reports none; Denies change in mental status, dry cough, dyspnea, hemoptysis, shortness of breath at rest or shortness of breath with exertion Gastrointestinal Gastrointestinal: Reports none; Denies abdominal pain, change in stool character, diarrhea, hematemesis, hematochezia, melena, rectal bleeding or vomiting Genitourinary Genitourinary ED: Reports none; Denies abdominal discomfort, anuria, dysuria, genital pain or polyuria Musculoskeletal Musculoskeletal: Reports none; Denies arthralgias, back pain, difficulty walking, extremity pain, muscle weakness or myalgias Integumentary Reports none; Denies abscess or rash Neurologic Neurologic: Reports none; Denies abnormal gait, confusion, focal weakness, frequent falls, headache(s), loss of vision, numbness, paresthesias, radicular pain, vertigo or weakness Psychiatric Psychiatric: Reports systems reviewed and no addt'l complaints, except as documented and none; Denies behavioral changes, confusion, difficulty concentrating, hallucinations, suicidal ideation, tactile hallucinations or visual hallucinations Endocrine Endocrinology: Denies none, cold intolerance, excessive sweating, fatigue or heat intolerance Hematologic/Lymphatic Hematologic/Lymphatic: Reports none; Denies anemia, easy bleeding or easy bruising Allergic/Immunologic Allergic/Immunologic ED: Denies as per HPI, none, lip swelling, mouth swelling, throat swelling, tongue swelling or hives EXAM Physical Exam Const Vital Signs: 07/22/21 07:23 07/22/21 08:00 07/22/21 09:36 Temperature 97.6 F L Temperature Source Temporal Pulse Rate 74 69 72 Respiratory Rate 16 Blood Pressure 128/69 H 118/63 108/66 Blood Pressure Mean 88 81 80 Pulse Ox 93 98 Oxygen Delivery Method Room Air Room Air Positive well nourished and well developed General Appearance ED: well developed and NAD HEENT Reports TM's clear and moist mucous membranes normocephalic and atraumatic; Negative for trauma or tenderness Tympanic Membrane ED: Yes TM's clear Eyes PERRL and EOMs intact bilaterally General Eye ED: Negative for pale conjunctiva or scleral icterus Neck no lymphadenopathy, supple and no JVD General: Negative for tenderness Chest Wall inspection of chest normal and palpation of chest normal Chest: Negative for tenderness Resp normal respiratory effort and clear to auscultation bilaterally Effort and Inspection: Negative for respiratory distress or pain with movement Auscultation: Negative for rhonchi, wheezes or diminished lung sounds Cardio regular rate, regular rhythm, S1 normal heart sound, S2 normal heart sound and no murmurs Peripheral Pulses: pulses 2+ throughout GI normal to inspection, nondistended, normoactive bowel sounds, soft to palpation, non-tender, non-distended and no masses Back/Spine no CVA tenderness and no thoracic nor lumbar tenderness Extremity normal to inspection General Extremety ED: Negative for edema General Extremity: Negative for edema Neuro oriented x3, CN's II-XII intact bilaterally, no sensory deficits noted and gait normal Neuro Narrative: Patient awake and responds to his name but nonverbal. I do not appreciate any bite wounds to his mouth. Patient wearing an adult diaper therefore difficult to know if he was incontinent during his possible seizure. Patient moves all 4 extremities. No focal deficits noted. Sensorium / Orientation: awake, alert, oriented to person, oriented to place and oriented to time Motor Exam: strength 5/5 throughout and strength abnormal Psych mental status grossly normal Skin no rashes or lesions noted and no wounds MDM MDM MDM Narrative Medical decision making narrative: IV line established on arrival. Lab work-up was unremarkable. CT of the brain without contrast was unremarkable. Prolactin level was elevated nine 9.4. I did not see any bite wounds to his tongue or mouth. At this point it is unclear if patient truly had a seizure versus a vasovagal vagal episode given that he was on the toilet and may have had some short twitching/seizure-like activity related to hypotension. I discussed case with hospitalist as well as patient's primary care physician who both feel patient should be discharged back to detention without starting any type of antiseizure meds given that patient does not have history of seizures and at this point we all suspect this may have been a vasovagal type episode. Lab Data Attestation: I reviewed the patient's lab results. Labs: Laboratory Results - last 24 hr 07/22/21 07/22/21 07/22/21 07:55 07:55 09:30 WBC 4.1 L RBC 4.28 L Hgb 14.9 Hct 43.6 MCV 101.9 H MCH 34.8 H MCHC 34.2 RDW Std Deviation 52.7 H RDW Coeff of Hermann 13.9 Plt Count 412 MPV 9.1 Immature Gran % (Auto) 0.500 Neut % (Auto) 60.2 Lymph % (Auto) 24.9 [place] % (Auto) 10.0 Eos % (Auto) 2.2 Baso % (Auto) 2.2 H Absolute Neuts (auto) 2.5 Absolute Lymphs (auto) 1.02 Nucleated RBC % 0 Sodium 136 Potassium 4.3 Chloride 102 Carbon Dioxide 28.0 Anion Gap 6 BUN 7 Creatinine 0.96 Estim Creat Clear Calc 57.51 Est GFR (MDRD) Af Amer 102 Est GFR (MDRD) Non-Af 84 BUN/Creatinine Ratio 7.3 L Glucose 93 Calcium 8.7 Total Bilirubin 0.40 AST 40 H ALT 43 Alkaline Phosphatase 135 H Troponin I High Sens 5 Total Protein 8.1 Albumin 3.2 Globulin 4.9 H Albumin/Globulin Ratio 0.7 L Prolactin 99.4 Urine Color Yellow Urine Clarity Clear Urine pH 8.0 Ur Specific [place] 1.010 Urine Protein Negative Urine Glucose (UA) Normal Urine Ketones Negative Urine Occult Blood Negative Urine Nitrite Negative Urine Bilirubin Negative Urine Urobilinogen Normal Ur Leukocyte Esterase Negative Urine RBC 0 SEEN Urine WBC 0 SEEN Ur Squamous Epith Cells 0 SEEN Urine Bacteria 0 SEEN Urine Mucus 0 SEEN Radiography Diagnostic Testing: Clinical Impression(s) from Imaging Studies Brain CT 07/22/21 07:35 IMPRESSION: Chronic involutional changes of the brain. Electronically Signed: Steven Campo MD at 8:35 EDT , Pelvis X-Ray 07/22/21 07:40 IMPRESSION: Normal x-ray examination of the pelvis. Electronically Signed: Steven Campo MD at 8:34 EDT , EKG Initial EKG: Comments: Sinus rhythm with a rate of 76 bpm with no acute ST segment changes Discharge Plan Triage Chief Complaint: Seizure ED Provider: Sampson Valadez Dx/Rx/DC Orders Clinical Impression: Vasovagal syncope Instructions: ED Fainting, Vagal Reaction, ED Fainting, Uncertain Cause Prescriptions: No Action fluocinolone 0.01 % topical body oil 0.01 % oil 1 applic TOPICAL DAILY RF: 0 fluoxetine 20 MG tablet 20 mg PO DAILY RF: 0 pravastatin 40 MG tablet 40 mg PO DAILY RF: 0 buspirone 5 MG tablet 10 tab PO QHS RF: 0 aspirin 81 MG tablet,chewable 81 mg PO DAILY@0800 RF: 0 multivitamin 1 EACH tablet 1 ea PO DAILY RF: 0 buspirone 5 MG tablet 5 mg PO DAILY RF: 0 omeprazole 20 MG capsule 20 mg PO DAILY RF: 0 levothyroxine 75 MCG tablet 75 mcg PO DAILY RF: 0 melatonin 3 MG capsule 3 mg PO QHS RF: 0 Acetaminophen 650 mg PO Q6H PRN (Reason: Pain Or Fever) RF: 0 guaifenesin 600 MG tablet extended release 12hr 600 mg PO Q12H PRN (Reason: Congestion) RF: 0 donepezil [Aricept] 10 mg Tablet 5 mg PO QHS RF: 0 Primary Care Provider: Jeff Herndon Referrals: Jeff Herndon MD [Primary Care Provider] - 3-5 Days Disposition Disposition: Home, Self Care
--- NOTE | 2021-07-22 07:40 | RAD_ITS ---
STUDY: X-RAY - PELVIS REASON FOR EXAM: Male, 66 years old. fall, seizure TECHNIQUE: One view of the pelvis was obtained. COMPARISON: 06/24/2021 FINDINGS: There is a non-specific bowel gas pattern. Normal visualized soft tissue structures. Normal bilateral iliac wings, sacroiliac joints and visualized sacrum. Normal visualized bilateral superior and inferior pubic rami. Normal pubic symphysis. Normal ischial tuberosities. Normal visualized right femoral head. Normal right acetabulum. Normal right hip joint. Normal visualized left femoral head. Normal left acetabulum. Normal left hip joint. RAD/Pelvis 1 or 2 Views IMPRESSION: Normal x-ray examination of the pelvis. Electronically Signed: Steven Campo MD at 8:34 EDT ,
[2021-07-22 08:00] VITALS: BP 118/63; PULSE 69
[2021-07-22 08:07] LABS: Absolute Lymphocyte Count 1.02 X10^3/uL (0.83-4.51); Absolute Neutrophil Count 2.5 X10^3/uL (2.0-7.7); Basophil# 0.09 X10^3/uL; Basophil% 2.2 % (0-1); Eosinophil# 0.09 X10^3/uL; Eosinophils% 2.2 % (0-5); Hematocrit 43.6 % (40-54); Hemoglobin 14.9 g/dL (13.0-16.5); Lymphocyte # 1.02 X10^3/ul (0.83-4.51); Lymphocyte % 24.9 % (19-41); Mean Corp Hgb Conc 34.2 g/dL (32-36); Mean Corpuscular Hgb 34.8 pg (27.0-32.0); Mean Corpuscular Volume 101.9 fL (80-94); Mean Platelet Vol. 9.1 fl (6.2-12.0); Monocyte# 0.41 X10^3/uL; NRBC Flagged by Analyzer 0 % (0-5); Neutrophil # 2.46 X10^3/uL (2.7-7.7); Neutrophil % 60.2 % (47-70); Platelet Count 412 K/mm3 (150-450); RBC Distribution Width CV 13.9 % (11.6-14.6); RBC Distribution Width SD 52.7 fl (35.1-43.9); Red Blood Count 4.28 M/mm3 (4.6-6.2); White Blood Count 4.1 K/mm3 (4.4-11.0)
[2021-07-22 09:16] LABS: ALB/GLOB Ratio 0.7 RATIO (0.9-2.4); AST(SGOT) 40 U/L (15-37); Alanine Aminotransfer ALT/SGPT 43 U/L (16-61); Albumin, Serum 3.2 g/dL (3.2-5.0); Alkaline Phosphatase 135 U/L (45-117); Anion Gap 6 (5-15); BUN 7 mg/dL (7-18); BUN/Creat Ratio 7.3 RATIO (10-20); Calcium,Total 8.7 mg/dL (8.5-10.1); Chloride 102 mmol/L (98-107); Creatinine, Serum 0.96 mg/dL (0.70-1.30); EST Glomerular Filtration Rate 84 mL/min (>60); Est Glom Filt Rate - Afr Amer 102 mL/min (>60); Estimated Creatinine Clearance 57.51 ml/min; Globulin 4.9 g/dL (2.2-4.2); Glucose 93 mg/dL (74-106); Potassium 4.3 mmol/L (3.5-5.1); Prolactin 99.4 ng/mL; Protein, Total 8.1 g/dL (6.4-8.2); Sodium Level 136 mmol/L (136-145); Troponin-I HS 5 pg/mL (3.0-78.0)
[2021-07-22 09:36] VITALS: BP 108/66; PULSE 72; O2SAT 98
[2021-07-22 09:43] LABS: Bacteria 0 SEEN /hpf (None Seen); Mucous, Urine 0 SEEN /hpf (<or=2+); Red Blood Cells-Urine 0 SEEN /hpf (0-5); Squamous Epithelial Cells - UA 0 SEEN /hpf (0-5); White Blood Cells 0 SEEN /hpf (0-5)
[2021-07-22 09:45] LABS: Color, Urine Yellow (Yellow); Glucose, Dipstick Normal (Normal); Ketone-Dipstick Negative (Negative); Leukocyte Esterase-Dipstick Negative /ul (Negative); Nitrite-Dipstick Negative (Negative); Occult Blood-Urine Negative /ul (Negative); Protein-Dipstick Negative (Negative); Urine Bilirubin Dipstick Negative (Negative); Urine Clarity Clear (Clear); Urine Urobilinogen Normal (Normal)
--- NOTE | 2021-07-22 10:26 | NURSING ---
CALLED [facility], ETA IS 20 TO 30 MIN
[2021-07-22 10:36] VITALS: BP 102/71; PULSE 69; RESP 12; O2SAT 100
== END 2021-07-22 10:56 | disposition skilled nursing facility (03) ==
PROVIDERS: Emergency Provider Emergency Medicine; PCP Family Medicine; Visit Provider Emergency Medicine
DX: R55 Syncope and collapse (principal); F03.90 Unspecified dementia, unspecified severity, without behavioral disturbance, psychotic disturbance, mood disturbance, and anxiety; Q90.9 Down syndrome, unspecified; F79 Unspecified intellectual disabilities; E78.5 Hyperlipidemia, unspecified; E03.9 Hypothyroidism, unspecified; F32.A Depression, unspecified; F41.9 Anxiety disorder, unspecified; Z79.82 Long term (current) use of aspirin; Z79.899 Other long term (current) drug therapy
CPT/HCPCS: 70450; 72170; 80053; 81001; 84146; 84484; 85025; 93005; 99285; P9612; A4216

== ENCOUNTER 2021-10-16 09:22 | Observation (INO) | payer MEDICARE, MEDICAID, SELFPAY ==
[2021-10-16] VITALS (10 sets, daily range): BP systolic 101–147; BP diastolic 58–77; PULSE 65–80; RESP 17–18; TEMP 35.9–36.7; O2SAT 93–100; BMI 23.2; BMI 19.9
--- NOTE | 2021-10-16 09:49 | EDS_ITS ---
HPI History of Present Illness Chief Complaint: Seizure Narrative Narrative: 66-year-old male here for concern for seizure. The patient has a history of Down syndrome, bowel obstruction, hypothyroidism, hyperlipidemia, hypothyroidism presents with concern for seizure like activity. The patient is nonverbal at baseline does not provide a reliable history. History is provided by the patient's caregiver from his adult daycare center. She states patient had transient episode of cyanosis, unresponsiveness. This lasted for only a few seconds. There is no report of loss of pulses. She states the patient regained full consciousness shortly after in which they called EMS. She states his mental status is essentially baseline. States he normally walks with assistance of a walker. Old chart reviewed: Seen in June 2021 for similar symptoms was diagnosed with vasovagal syncope after a unremarkable lab and imaging work-up including a negative CT scan of his head. [facility] Medical History Anxiety and depression Bowel obstruction Cellulitis DDD (degenerative disc disease) Dementia Down syndrome Dyslipidemia Hypothyroid Nausea with vomiting, unspecified Porokeratosis Home Medications fluoxetine 20 mg tablet 20 mg PO DAILY mood 11/06/13 [History Last Taken 06/18/17] pravastatin 40 mg tablet 40 mg PO DAILY cholesterol 11/23/13 [History Last Taken 06/18/17] buspirone 5 mg tablet 10 tab PO QHS anxiety 04/18/17 [History Last Taken 06/18/17] aspirin 81 mg chewable tablet 81 mg PO DAILY@0800 heart 06/19/17 [History Last Taken 06/18/17] buspirone 5 mg tablet 5 mg PO DAILY 01/09/18 [History Last Taken Unknown] multivitamin 1 ea PO DAILY SUPPLEMENT 01/09/18 [History Last Taken Unknown] omeprazole 20 mg capsule,delayed release 20 mg PO DAILY GERD 01/09/18 [History Last Taken Unknown] guaifenesin 600 mg tablet, extended release 12 hr 600 mg PO Q12H PRN Congestion 12/26/19 [History Last Taken Unknown] levothyroxine 75 mcg tablet 75 mcg PO DAILY HYPOTHYROID 12/26/19 [History Last Taken Unknown] melatonin 3 mg capsule 3 mg PO QHS INSOMNIA 12/26/19 [History Last Taken 06/23/21] donepezil 10 mg tablet (Aricept) 10 mg PO QHS dementia 10/22/20 [History Last Taken Unknown] acetaminophen 650 mg tablet 650 mg PO Q6H PRN PAIN/FEVER 10/16/21 [History Last Taken Unknown] bisacodyl 10 mg rectal suppository 10 mg WY DAILY PRN Constipation 10/16/21 [History Last Taken Unknown] fluocinolone 0.01 % topical body oil 1 applic topical DAILY DRY SKIN 10/16/21 [History Last Taken Unknown] magnesium hydroxide 400 mg/5 mL oral suspension (Milk of Magnesia) 30 ml PO DAILY PRN Constipation 10/16/21 [History Last Taken Unknown] mineral oil 118 ml WY DAILY PRN Constipation 10/16/21 [History Last Taken Unknown] ondansetron 4 mg disintegrating tablet 4 mg PO Q6H PRN Nausea 10/16/21 [History Last Taken Unknown] Allergy/AdvReac Type Severity Reaction Status Date / Time cardboard AdvReac Rash Uncoded 10/16/21 12:55 Family History Father Heart disease Myocardial infarction Cancer Mother CVA (cerebral vascular accident) Carotid artery disease Surgical History History of hernia surgery Social History housing: other details: senior care. Smoking Status: Never smoker alcohol intake: never substance use type: does not use ROS ROS ED Eyes Eyes: Denies other visual disturbances ENT ENT ED: Denies ear pain Cardiovascular Cardiovascular: Reports other Details: Positive for syncope, cyanosis ; Denies chest pain Respiratory/Chest Respiratory/Chest: Denies dyspnea Gastrointestinal Gastrointestinal: Denies abdominal pain Genitourinary Genitourinary ED: Denies dysuria Musculoskeletal Musculoskeletal: Denies joint pain Integumentary Denies rash Neurologic Neurologic: Denies dizziness, focal weakness, numbness, syncope or weakness Psychiatric Psychiatric: Denies homicidal ideation or suicidal ideation EXAM Physical Exam Const Vital Signs: 10/16/21 09:23 10/16/21 10:30 10/16/21 10:30 Temperature 96.6 F L Temperature Source Oral Pulse Rate 75 77 Respiratory Rate 18 Blood Pressure 116/76 Blood Pressure Mean 89 Pulse Ox 95 95 95 Oxygen Delivery Method Room Air Room Air Room Air Negative for alert or oriented x3 General Appearance ED: Negative for comfortable Orientation / Consciousness: Negative for awake HEENT Denies normocephalic Face and Sinus: Negative for face symmetric External Ear: Negative for external ears normal Mouth ED: No moist mucous membranes normal Throat: Negative for posterior oropharynx normal Eyes Negative for PERRL or EOMs intact bilaterally Neck No full ROM Carotids: other Other Details: no carotid bruits Chest Wall Negative for inspection of chest normal Resp No normal respiratory effort, No no retractions, No no use of accessory muscles and No clear to auscultation bilaterally Cardio Negative for no murmurs or peripheral pulses 2+ throughout GI Negative for no bruits GI Narrative: no pulsatile abdominal masses Negative for no CVA tenderness Back/Spine Cervical Spine: Negative for cervical ROM normal Extremity Negative for normal to inspection or full ROM MDM MDM MDM Narrative Medical decision making narrative: 66-year-old male presents with transient alteration in consciousness likely syncope. History, clinical exam not consistent with seizure there is no tongue biting no bowel or bladder incontinence. Patient was noted initial vitals to be transiently hypoxic with a good waveform. Placed on oxygen. Remainder of his vitals were hemodynamically stable he is afebrile and nontoxic-appearing. No focal cardiopulmonary normalities. No focal neurologic deficits noted on my exam. Obtained a broad lab and imaging work-up to rule out myocardial ischemia, anemia, electrode abnormalities, dehydration, kidney dysfunction. Labs remarkable for no evidence of significant inflammation, anemia, leukocytosis. There was no anion gap, no electrolyte abnormalities, no EDGAR. Troponin was negative. EKG showed normal sinus rhythm, no arrhythmia, no evidence of ischemia. Patient's chest x-ray showed no evidence of pulmonary edema, cardiomegaly. Given the language barrier i.e. the patient was nonverbal, second visit with similar symptoms, concern for syncope I thought it was best that the patient was monitored overnight on telemetry monitoring get serial cardiac biomarkers and confirmatory testing morning for echocardiogram. Discussed this with the inpatient hospitalist Dr. Ashley who accepted the patient to observation. Lab Data Attestation: I reviewed the patient's lab results. Labs: Laboratory Results - last 24 hr 10/16/21 10/16/21 10/16/21 10:53 10:53 10:53 WBC 9.0 RBC 4.10 L Hgb 13.9 Hct 40.4 MCV 98.5 H MCH 33.9 H MCHC 34.4 RDW Std Deviation 50.8 H RDW Coeff of Hermann 13.9 Plt Count 369 MPV 8.9 Sodium 138 Potassium 3.9 Chloride 103 Carbon Dioxide 29.0 Anion Gap 6 BUN 11 Creatinine 0.84 Estim Creat Clear Calc 65.72 Est GFR (MDRD) Af Amer 118 Est GFR (MDRD) Non-Af 98 BUN/Creatinine Ratio 13.1 Glucose 94 Calcium 8.9 Phosphorus Magnesium 2.3 Total Bilirubin 0.40 AST 29 ALT 36 Alkaline Phosphatase 90 Troponin I High Sens 33 Total Protein 7.5 Albumin 3.2 Globulin 4.3 H Albumin/Globulin Ratio 0.7 L 10/16/21 10:53 WBC RBC Hgb Hct MCV MCH MCHC RDW Std Deviation RDW Coeff of Hermann Plt Count MPV Sodium Potassium Chloride Carbon Dioxide Anion Gap BUN Creatinine Estim Creat Clear Calc Est GFR (MDRD) Af Amer Est GFR (MDRD) Non-Af BUN/Creatinine Ratio Glucose Calcium Phosphorus 2.1 L Magnesium Total Bilirubin AST ALT Alkaline Phosphatase Troponin I High Sens Total Protein Albumin Globulin Albumin/Globulin Ratio Radiography Diagnostic Testing: Clinical Impression(s) from Imaging Studies Chest X-Ray 10/16/21 10:59 IMPRESSION: No acute cardiopulmonary abnormality. Electronically Signed: Elfego Huerta MD at 11:17 EDT , EKG Initial EKG: Comments: EKG with normal sinus rhythm, normal axis, normal intervals, no evidence of STEMI no evidence of Brugada, WPW, ARVD Discharge Plan Disposition Disposition: Acute Care Hospital [facility]
--- NOTE | 2021-10-16 10:59 | RAD_ITS ---
EXAM: XR CHEST, 1 VIEW CLINICAL INDICATION: hypoxia TECHNIQUE: Frontal view of the chest. This report was created using [employer] report generation technology. COMPARISON: 10/22/2020 FINDINGS: LUNGS AND PLEURAL SPACES: Shallow inspiration. No pneumothorax. No effusion. HEART: Unremarkable. Normal heart size. MEDIASTINUM: Central airways and mediastinal contour are unremarkable. BONES/JOINTS: Prominent scoliosis of the thoracolumbar spine. SOFT TISSUES: Unremarkable. RAD/Chest 1 View (Portable) IMPRESSION: No acute cardiopulmonary abnormality. Electronically Signed: Elfego Huerta MD at 11:17 EDT ,
[2021-10-16 11:03] LABS: Hematocrit 40.4 % (40-54); Hemoglobin 13.9 g/dL (13.0-16.5); Mean Corp Hgb Conc 34.4 g/dL (32-36); Mean Corpuscular Hgb 33.9 pg (27.0-32.0); Mean Corpuscular Volume 98.5 fL (80-94); Mean Platelet Vol. 8.9 fl (6.2-12.0); Platelet Count 369 K/mm3 (150-450); RBC Distribution Width CV 13.9 % (11.6-14.6); RBC Distribution Width SD 50.8 fl (35.1-43.9)
[2021-10-16 11:27] LABS: ALB/GLOB Ratio 0.7 RATIO (0.9-2.4); AST(SGOT) 29 U/L (15-37); Alanine Aminotransfer ALT/SGPT 36 U/L (16-61); Albumin, Serum 3.2 g/dL (3.2-5.0); Alkaline Phosphatase 90 U/L (45-117); Anion Gap 6 (5-15); BUN 11 mg/dL (7-18); BUN/Creat Ratio 13.1 RATIO (10-20); Calcium,Total 8.9 mg/dL (8.5-10.1); Chloride 103 mmol/L (98-107); Creatinine, Serum 0.84 mg/dL (0.70-1.30); EST Glomerular Filtration Rate 98 mL/min (>60); Est Glom Filt Rate - Afr Amer 118 mL/min (>60); Estimated Creatinine Clearance 65.72 ml/min; Globulin 4.3 g/dL (2.2-4.2); Glucose 94 mg/dL (74-106); Potassium 3.9 mmol/L (3.5-5.1); Protein, Total 7.5 g/dL (6.4-8.2); Sodium Level 138 mmol/L (136-145); Troponin-I HS 33 pg/mL (3.0-78.0)
--- NOTE | 2021-10-16 11:32 | EKG12_ITS ---
Test Reason : SEIZURES Blood Pressure : / mmHG Vent. Rate : 069 BPM Atrial Rate : 069 BPM P-R Int : 164 ms QRS Dur : 074 ms QT Int : 402 ms P-R-T Axes : 055 028 018 degrees QTc Int : 430 ms Normal sinus rhythm Normal ECG Confirmed by ARUN MAYER, OMAR ([id number]), newspaper copy editor FLACO LAMAR ([id number]) on 10/20/2021 11:48:09 AM Referred By: VERONICA Confirmed By:OMAR DIAS MD
--- NOTE | 2021-10-16 12:23 | HP.PCM.HOS_ITS ---
HPI - General General Date of Admission: 10/16/21 Date of Service: 10/16/21 Chief Complaint: Sudden loss of consciousness HPI Narrative PAULA YUSUF, is a 66 M who presents with the above. Patient is a resident of the [facility], he ambulates typically with a walker. He has history of Down syndrome/MRDD/dementia likely of the Alzheimer's type. Patient was going for his day work program. History was obtained from his legal guardian, Renetta as well as Breanna at the day program. Patient was transported from the usp to the day program in a shadow. He complained of feeling tired and unable to use his walker to walk to the works hop. He was put in a wheelchair. When he go to the workshop, he was noted shortly to be hyperextended, his eyes appeared rolled back, he appeared to have turned blue. He later on became very pale. The staff put oxygen on him. They did not check his oxygen saturation. His eyes appeared to be dazing back and forth. He appeared sweaty. There was no incontinence of stool or urine. This lasted for few seconds. He appeared to have regained his consciousness by the time the EMS got there. In the ED, his blood pressure was 116/76, heart rate was 75, respiratory is 18, temperature was 96.6F, oxygen saturation was 95% on room air. His WBC count was 9.0, hemoglobin 13.9, platelet count 369. His CMP was unremarkable. Phosphorus was 2.1, magnesium 2.3. Chest ray showed no acute cardiopulmonary abnormality. [facility] Medical History Anxiety and depression Bowel obstruction Cellulitis DDD (degenerative disc disease) Dementia Down syndrome Dyslipidemia Hypothyroid Nausea with vomiting, unspecified Porokeratosis Home Medications fluoxetine 20 mg tablet 20 mg PO DAILY mood 11/06/13 [History Last Taken 06/18/17] pravastatin 40 mg tablet 40 mg PO DAILY cholesterol 11/23/13 [History Last Taken 06/18/17] buspirone 5 mg tablet 10 tab PO QHS anxiety 04/18/17 [History Last Taken 06/18/17] aspirin 81 mg chewable tablet 81 mg PO DAILY@0800 heart 06/19/17 [History Last Taken 06/18/17] buspirone 5 mg tablet 5 mg PO DAILY 01/09/18 [History Last Taken Unknown] multivitamin 1 ea PO DAILY SUPPLEMENT 01/09/18 [History Last Taken Unknown] omeprazole 20 mg capsule,delayed release 20 mg PO DAILY GERD 01/09/18 [History Last Taken Unknown] guaifenesin 600 mg tablet, extended release 12 hr 600 mg PO Q12H PRN Congestion 12/26/19 [History Last Taken Unknown] levothyroxine 75 mcg tablet 75 mcg PO DAILY HYPOTHYROID 12/26/19 [History Last Taken Unknown] melatonin 3 mg capsule 3 mg PO QHS INSOMNIA 12/26/19 [History Last Taken 06/23/21] donepezil 10 mg tablet (Aricept) 10 mg PO QHS dementia 10/22/20 [History Last Taken Unknown] acetaminophen 650 mg tablet 650 mg PO Q6H PRN PAIN/FEVER 10/16/21 [History Last Taken Unknown] bisacodyl 10 mg rectal suppository 10 mg [place] DAILY PRN Constipation 10/16/21 [History Last Taken Unknown] fluocinolone 0.01 % topical body oil 1 applic topical DAILY DRY SKIN 10/16/21 [History Last Taken Unknown] magnesium hydroxide 400 mg/5 mL oral suspension (Milk of Magnesia) 30 ml PO DAILY PRN Constipation 10/16/21 [History Last Taken Unknown] mineral oil 118 ml WY DAILY PRN Constipation 10/16/21 [History Last Taken Unknown] ondansetron 4 mg disintegrating tablet 4 mg PO Q6H PRN Nausea 10/16/21 [History Last Taken Unknown] Allergy/AdvReac Type Severity Reaction Status Date / Time cardboard AdvReac Rash Uncoded 10/16/21 12:55 Family History Father Heart disease Myocardial infarction Cancer Mother CVA (cerebral vascular accident) Carotid artery disease Surgical History History of hernia surgery Social History housing: other details: intermediate. Smoking Status: Never smoker alcohol intake: never substance use type: does not use ROS Review of Systems ROS Unobtainable: due to mental condition Vital Signs Vital Signs Vital Signs: 10/16/21 09:23 10/16/21 10:30 10/16/21 10:30 Temperature 96.6 F L Temperature Source Oral Pulse Rate 75 77 Respiratory Rate 18 Blood Pressure 116/76 Blood Pressure Mean 89 Pulse Ox 95 95 95 Oxygen Delivery Method Room Air Room Air Room Air Weight Weight: 55.8 kg Body Mass Index (BMI) 23.2 Physical Exam Narrative Physical exam: General: Alert, non-verbal, cooperative, no apparent distress HEENT: Atraumatic Oral: Moist Mucosa Neck: Supple Lungs: Diminished to auscultation Cardiovascular: HS I+II, regular, no murmurs Abdomen: Bowel Sounds Present, Soft, Non Tender Extremities: No edema Skin: No rashes, No breakdown Neurological: Grossly intact Psych/Mental Status: MRDD Results Lab / Micro Data Result Diagrams: 10/16/21 10:53 10/16/21 10:53 Labs: Laboratory Results - last 24 hr 10/16/21 10:53: WBC 9.0, RBC 4.10 L, Hgb 13.9, Hct 40.4, MCV 98.5 H, MCH 33.9 H, MCHC 34.4, RDW Std Deviation 50.8 H, RDW Coeff of Hermann 13.9, Plt Count 369, MPV 8.9 10/16/21 10:53: Sodium 138, Potassium 3.9, Chloride 103, Carbon Dioxide 29.0, Anion Gap 6, BUN 11, Creatinine 0.84, Estim Creat Clear Calc 65.72, Est GFR (MDRD) Af Amer 118, Est GFR (MDRD) Non-Af 98, BUN/Creatinine Ratio 13.1, Glucose 94, Calcium 8.9, Total Bilirubin 0.40, AST 29, ALT 36, Alkaline Phosphatase 90, Troponin I High Sens 33, Total Protein 7.5, Albumin 3.2, Globulin 4.3 H, Albumin/Globulin Ratio 0.7 L Micro: Microbiology 10/16/21 10:17 Nasal Secretion SARS-CoV-2 Antigen (Rapid) - Final Radiology Impression Chest X-Ray 10/16/21 10:59 IMPRESSION: No acute cardiopulmonary abnormality. Electronically Signed: Elfego Huerta MD at 11:17 EDT , Assessment & Plan Assessment/Plan (1) Syncope: PLAN: Plan 1. Syncope versus seizure versus arrhythmia Eyewitness account makes it look more like seizure EKG shows normal sinus rhythm, QTC 430 Will get orthostatic vitals, CT of the brain, stat EEG, seizure precautions Tele-neurology consult later after results Continue on IV fluids, 2. Hypophosphatemia, replaced, recheck in a.m. 3. Down syndrome/MRDD/dementia, complicates care 4. DVT PPX- Lovenox SC Charges/Coding Visit Charges OBSV E&M: [id number] Initial observation care L3
--- NOTE | 2021-10-16 12:44 | ED.RN ---
YESENIA Jackson and the [facility] notified that patient would be admitted overnight. Julia at the [facility] will fax over medication list.
--- NOTE | 2021-10-16 12:58 | ECHOD_ITS ---
Reason For Study: SYNCOPE Procedure This was a 2D Doppler, Color Flow transthoracic echocardiogram. The study was technically difficult. Patient was very uncooperative. Exam performed portable in patient room. Left Ventricle Normal LV size. Left ventricular systolic function is normal. Stage 1 diastolic dysfunction. Right Ventricle Normal RV size. Normal systolic function. Mitral Valve Normal mitral valve. Tricuspid Valve Normal tricuspid valve. Mild (1+) tricuspid valve insufficiency. Pulmonary artery systolic pressure is 38 mmHg. Aortic Valve Trisinus/trileaflet aortic valve. Mild (1+) eccentric aortic valve insufficiency. Pulmonic Valve Normal pulmonic valve. Great Vessels Normal aortic root. Pericardium/Pleural No pericardial effusion. Doppler Measurements & Calculations MV E max anup: 74.4 cm/sec Lat Peak E' Anup: 7.7 cm/sec Med Peak E' Anup: 7.6 cm/sec MV A max anup: 103.5 cm/sec E/E' lat: 9.7 E/E' med: 9.8 MV E/A: 0.72 Ao V2 max: 114.6 cm/sec AI max anup: 456.0 cm/sec LV V1 max: 113.8 cm/sec Ao max P.3 mmHg AI max P.2 mmHg LV V1 max P.2 mmHg AI dec slope: 225.5 cm/sec2 AI P1/2t: 592.3 msec PA V2 max: 87.6 cm/sec TR max anup: 287.5 cm/sec TR max P.1 mmHg ECHO/Echo Complete Interpretation Summary Normal LV size. Left ventricular systolic function is normal. Stage 1 diastolic dysfunction. Pulmonary artery systolic pressure is 38 mmHg. Ordering Physician: Mirela Ashley Referring Physician: Jeff Herndon Performed By: Amalia Wylie RCS
[2021-10-16] MEDS: 0.9% Normal Saline 1,000 ML 100 ML IV (13:25)
[2021-10-16 13:29] LABS: Magnesium 2.3 mg/dL (1.6-2.6)
[2021-10-16 13:33] LABS: Phosphorus 2.1 mg/dL (2.5-4.9)
--- NOTE | 2021-10-16 14:44 | CT_ITS ---
EXAM: CT HEAD WITHOUT INTRAVENOUS CONTRAST CLINICAL INDICATION: syncope TECHNIQUE: Multiple axial images were obtained of the head without intravenous contrast. This CT exam was performed using one or more of the following dose reduction techniques: automated exposure control, adjustment of the mA and/or kV according to patient size, and/or use of iterative reconstruction technique. This report was created using [employer] report generation technology. 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 Stable chronic lacunar infarct of the left caudate body. Areas of diminished white matter density noted within both cerebral hemispheres suggestive of chronic microvascular change. Prominence of the cortical sulci and ventricles consistent with volume loss change. No intra- or extra-axial hemorrhage. No intracranial mass or mass effect. Posterior fossa structures are unremarkable. Basal cisterns are patent. BONES/JOINTS: Unremarkable. No discrete lytic or blastic abnormalities. SINUSES: Unremarkable as visualized. Clear. MASTOID AIR CELLS: Unremarkable. Clear. ORBITS: Visualized globes, extraocular muscles, optic nerves and retrobulbar fat appear unremarkable. CT/Brain/Head without Contrast IMPRESSION: 1. No acute intracranial abnormality. 2. Stable chronic ischemic changes. Electronically Signed: Elfego Huerta MD at 16:04 EDT ,
[2021-10-16 16:55] LABS: Troponin-I HS 20 pg/mL (3.0-78.0)
[2021-10-16 17:34] LABS: Troponin-I HS 22 pg/mL (3.0-78.0)
[2021-10-16] MEDS: Na Biphos/Potassium Phosphate PACKET 1 PACKET PO ×2 (17:56→22:26)
[2021-10-16 21:40] LABS: Thyroid Stim Hormone (TSH) 5.38 uIU/mL (0.358-3.74)
[2021-10-17] VITALS (7 sets, daily range): BP systolic 96–116; BP diastolic 66–70; PULSE 67–82; RESP 14–18; TEMP 36.4–37.3; O2SAT 93–97
[2021-10-17] MEDS: 0.9% Normal Saline 1,000 ML 100 ML IV ×2 (00:15→10:15)
[2021-10-17 05:51] LABS: Absolute Lymphocyte Count 1.02 X10^3/uL (0.83-4.51); Basophil# 0.08 X10^3/uL; Basophil% 1.7 % (0-1); Eosinophil# 0.09 X10^3/uL; Eosinophils% 1.9 % (0-5); Hematocrit 34.5 % (40-54); Hemoglobin 11.9 g/dL (13.0-16.5); Lymphocyte # 1.02 X10^3/ul (0.83-4.51); Lymphocyte % 21.4 % (19-41); Mean Corp Hgb Conc 34.5 g/dL (32-36); Mean Corpuscular Volume 98.6 fL (80-94); Mean Platelet Vol. 8.9 fl (6.2-12.0); Monocyte# 0.52 X10^3/uL; Monocyte% 10.9 % (0-10); NRBC Flagged by Analyzer 0 % (0-5); Neutrophil # 3.03 X10^3/uL (2.7-7.7); Neutrophil % 63.5 % (47-70); Platelet Count 327 K/mm3 (150-450); RBC Distribution Width CV 14.4 % (11.6-14.6); RBC Distribution Width SD 51.8 fl (35.1-43.9); White Blood Count 4.8 K/mm3 (4.4-11.0)
[2021-10-17 06:36] LABS: ALB/GLOB Ratio 0.8 RATIO (0.9-2.4); AST(SGOT) 22 U/L (15-37); Alanine Aminotransfer ALT/SGPT 25 U/L (16-61); Albumin, Serum 2.8 g/dL (3.2-5.0); Alkaline Phosphatase 78 U/L (45-117); Anion Gap 5 (5-15); BUN 7 mg/dL (7-18); BUN/Creat Ratio 9.7 RATIO (10-20); Chloride 106 mmol/L (98-107); Creatinine, Serum 0.72 mg/dL (0.70-1.30); EST Glomerular Filtration Rate 116 mL/min (>60); Est Glom Filt Rate - Afr Amer 141 mL/min (>60); Estimated Creatinine Clearance 70.52 ml/min; Globulin 3.6 g/dL (2.2-4.2); Glucose 83 mg/dL (74-106); Potassium 3.8 mmol/L (3.5-5.1); Protein, Total 6.4 g/dL (6.4-8.2); Sodium Level 138 mmol/L (136-145)
[2021-10-17 06:53] LABS: Phosphorus 3.9 mg/dL (2.5-4.9)
--- NOTE | 2021-10-17 08:50 | TELEMED_ITS ---
[facility] has confirmed receipt of a request for visit. This document confirms receipt of the order initiating the consult. To find the results of the consultation, please view the patient's reports for the scanned Telemed Consult.
[2021-10-17 08:53] LABS: Free T3 1.9 pg/mL (2.18-3.98)
--- NOTE | 2021-10-17 09:32 | CASEMGMT ---
Discharge Liaison Inspection Laboratory Assistant Faxed over update on patient to Marley at the [facility]. Lilian Colindres Discharge Liaison Inspection Laboratory Assistant
[2021-10-17] MEDS: Enoxaparin 40 MG/0.4 ML Syringe SC (10:15)
[2021-10-17] MEDS: Na Biphos/Potassium Phosphate PACKET 1 PACKET PO ×2 (10:16→16:11)
[2021-10-17] MEDS: FLUoxetine 20 MG Capsule PO (10:25)
[2021-10-17] MEDS: Levothyroxine 100 MCG Tablet PO (10:25)
[2021-10-17] MEDS: Pantoprazole Sodium 20 MG Tablet PO (10:25)
[2021-10-17] MEDS: Pravastatin 40 MG Tablet PO (10:46)
--- NOTE | 2021-10-17 11:28 | PCM.TXEXTCAR ---
Diet 10/16/21 12:59 Diet: Regular - General Food consistency:: Regular Liquid Consistency:: Regular/Thin Routine Orders/Code Status Routine Lab Work: CBC (within 3 days) and - (CMP within 3 days) Code Status: DNRCC Therapies Weight Bearing: Weight bearing as tolerated Physical Therapy: Eval and Treat Occupational Therapy: Eval and Treat Problem/Diagnosis (1) Syncope: Status: Acute Allergies/Procedures Done in Hospital Allergies cardboard Adverse Reaction (Uncoded 10/16/21 12:55) Rash Procedures: 2-D Echocardiogram Type of Care/Length of Stay Estimated LOS: Convalescent Care Less Than 30 days Type of Care Needed: Skilled Rehab Potential: Good Prognosis: Good Additional Orders/Day of Discharge Day of Discharge: 10/17/21 Dietary and Speech Recommendations Dietitian Recommendations/Changes: Continue Regular diet Discharge Plan Admission Admit Date/Time: 10/16/21 12:18 Primary Reason for Your Visit: Syncope Attending Provider: Mirela Ashley Primary Care Provider: Jeff Herndon Discharge Orders/Prescriptions Prescriptions: New levothyroxine 100 mcg Tablet 100 mcg PO DAILY@0600 Qty: 0 0RF Continued fluoxetine 20 MG tablet 20 mg PO DAILY Label Comments: mood pravastatin 40 MG tablet 40 mg PO DAILY Label Comments: cholesterol buspirone 5 MG tablet 10 tab PO QHS Label Comments: aspirin 81 MG tablet,chewable 81 mg PO DAILY@0800 multivitamin 1 EACH tablet 1 ea PO DAILY buspirone 5 MG tablet 5 mg PO DAILY omeprazole 20 MG capsule 20 mg PO DAILY melatonin 3 MG capsule 3 mg PO QHS guaifenesin 600 MG tablet extended release 12hr 600 mg PO Q12H PRN (Reason: Congestion) donepezil [Aricept] 10 mg Tablet 10 mg PO QHS acetaminophen 650 mg Tablet 650 mg PO Q6H PRN (Reason: PAIN/FEVER) mineral oil Enema 118 ml WY DAILY PRN (Reason: Constipation) Rx Instructions: discard any unused portion magnesium hydroxide [Milk of Magnesia] 400 mg/5 mL Suspension 30 ml PO DAILY PRN (Reason: Constipation) bisacodyl 10 mg Suppository 10 mg WY DAILY PRN (Reason: Constipation) fluocinolone 0.01 % Oil 1 applic TOPICAL DAILY ondansetron 4 mg Tablet,Disintegrating 4 mg PO Q6H PRN (Reason: Nausea) Discontinued levothyroxine 75 MCG tablet 75 mcg PO DAILY Referrals / Follow Up: Jeff Herndon MD [Primary Care Provider] - Disposition Disposition (needs filled in before D/C Order can be placed): Assisted Facility
--- NOTE | 2021-10-17 11:32 | DS.PCM_ITS ---
Providers Date of Admission: 10/16/21 Date of Discharge: 10/17/21 Primary Care Physician: Dr. Jeff Herndon MD Reason For Visit: SYNCOPE Diagnosis Discharge Diagnosis (1) Syncope: Status: Acute Code(s): R55 - Syncope and collapse Medications at Discharge Home Medications fluoxetine 20 mg tablet 20 mg PO DAILY mood 11/06/13 pravastatin 40 mg tablet 40 mg PO DAILY cholesterol 11/23/13 buspirone 5 mg tablet 10 tab PO QHS anxiety 04/18/17 aspirin 81 mg chewable tablet 81 mg PO DAILY@0800 heart 06/19/17 buspirone 5 mg tablet 5 mg PO DAILY 01/09/18 multivitamin 1 ea PO DAILY SUPPLEMENT 01/09/18 omeprazole 20 mg capsule,delayed release 20 mg PO DAILY GERD 01/09/18 guaifenesin 600 mg tablet, extended release 12 hr 600 mg PO Q12H PRN Congestion 12/26/19 melatonin 3 mg capsule 3 mg PO QHS INSOMNIA 12/26/19 donepezil 10 mg tablet (Aricept) 10 mg PO QHS dementia 10/22/20 acetaminophen 650 mg tablet 650 mg PO Q6H PRN PAIN/FEVER 10/16/21 bisacodyl 10 mg rectal suppository 10 mg MD DAILY PRN Constipation 10/16/21 fluocinolone 0.01 % topical body oil 1 applic topical DAILY DRY SKIN 10/16/21 magnesium hydroxide 400 mg/5 mL oral suspension (Milk of Magnesia) 30 ml PO DAILY PRN Constipation 10/16/21 mineral oil 118 ml MD DAILY PRN Constipation 10/16/21 ondansetron 4 mg disintegrating tablet 4 mg PO Q6H PRN Nausea 10/16/21 levetiracetam 500 mg tablet (Keppra) 500 mg PO BID 30 days #60 tabs 10/17/21 levothyroxine 100 mcg tablet 100 mcg PO DAILY@0600 #0 tabs 10/17/21 Hospital Course Operations None Procedures 2-D Echocardiogram Summary of Care Provided Minutes Spent on Discharge: 35 Hospital Course: 66y/o male with PMHx of Down's syndrome/MRDD/Dementia, likely Alzheimer's type, who is a resident of the [facility], comes in after a witnessed syncopal episode. Patient had gone to his day program from the shelter. He had stated that he was feeling weak and did not want to walk with his walker from the shuttle to the day program. He was wheeled into the workshop in a wheel chair. Soon after he got there, patient was said to have been in a hyperextended state, with his eyes rolled back, he appeared to have turned blue and very pale. The staff put oxygen on him and called the EMS. His eyes appear to be darting back and forth. This lasted a few seconds. He appeared sweaty. There was no incontinence of stool or urine. By the time the EMS got there he had regained his consciousness. His blood sugar was 98. Patient's vitals were stable in the ED. Admitting blood work was unremarkable except for phosphorus of 2.1. He was admitted to the PCU. Orthostatic vitals were unremarkable. We will continue on IV fluid. 2D echo showed normal LV function, stage I diastolic dysfunction, otherwise unremarkable. Telemetry did not show any acute abnormality. Patient's TSH was elevated at 5.98, free T3 was low, free T4 was normal. His Synthroid was increased from 75mcg to 100 mcg. He will need repeat TSH in 6 weeks. EEG was ordered. [facility] teleneurology consulted; recommended starting Keppra 500 mg p.o. twice daily, outpatient neurology follow-up. Physical Exam Narrative Physical exam: General: Alert, non-verbal, cooperative, no apparent distress HEENT: Atraumatic Oral: Moist Mucosa Neck: Supple Lungs: Diminished to auscultation Cardiovascular: HS I+II, regular, no murmurs Abdomen: Bowel Sounds Present, Soft, Non Tender Extremities: No edema Skin: No rashes, No breakdown Neurological: Grossly intact Psych/Mental Status: MRDD Weight / BMI Weight Weight: 48.1 kg Body Mass Index (BMI) 19.9 ABG / Lab / Microbiology Data Result Diagrams: 10/17/21 05:38 10/17/21 05:38 Laboratory: Laboratory Results - last 24 hr 10/16/21 10:53: Magnesium 2.3 10/16/21 10:53: Phosphorus 2.1 L 10/16/21 10:53: TSH 5.38 H 10/16/21 16:00: Troponin I High Sens 20 10/16/21 16:55: Troponin I High Sens 22 10/17/21 05:38: WBC 4.8, RBC 3.50 L, Hgb 11.9 L, Hct 34.5 L, MCV 98.6 H, MCH 34.0 H, MCHC 34.5, RDW Std Deviation 51.8 H, RDW Coeff of Hermann 14.4, Plt Count 327, MPV 8.9, Immature Gran % (Auto) 0.600, Neut % (Auto) 63.5, Lymph % (Auto) 21.4, [place] % (Auto) 10.9 H, Eos % (Auto) 1.9, Baso % (Auto) 1.7 H, Absolute Neuts (auto) 3.0, Absolute Lymphs (auto) 1.02, Nucleated RBC % 0 10/17/21 05:38: Sodium 138, Potassium 3.8, Chloride 106, Carbon Dioxide 27.0, Anion Gap 5, BUN 7, Creatinine 0.72, Estim Creat Clear Calc 70.52, Est GFR (MDRD) Af Amer 141, Est GFR (MDRD) Non-Af 116, BUN/Creatinine Ratio 9.7 L, Glucose 83, Calcium 8.0 L, Total Bilirubin 0.50, AST 22, ALT 25, Alkaline Phosphatase 78, Total Protein 6.4, Albumin 2.8 L, Globulin 3.6, Albumin/Globulin Ratio 0.8 L 10/17/21 05:38: Phosphorus 3.9 10/17/21 05:58: Free T4 1.10, Free T3 pg/dL 1.9 L Microbiology: Microbiology 10/16/21 10:17 Nasal Secretion SARS-CoV-2 Antigen (Rapid) - Final Radiography Diagnostic Testing: Radiology Impression Echocardiogram 10/16/21 12:58 Interpretation Summary Normal LV size. Left ventricular systolic function is normal. Stage 1 diastolic dysfunction. Pulmonary artery systolic pressure is 38 mmHg. _ Ordering Physician: Mirela Ashley Referring Physician: Jeff Herndon Performed By: Amalia Wylie RCS Brain CT 10/16/21 14:44 IMPRESSION: 1. No acute intracranial abnormality. 2. Stable chronic ischemic changes. Electronically Signed: Elfego Huerta MD at 16:04 EDT Reading Location ID and State: [address] [place] [address] Tel , Service support , D/C Instructions Discharge Diet: No restrictions Discharge Activity: Return to Normal Activity Weight Bearing Status: Weight bearing as tolerated Meaningful Use Info Meaningful Use Diagnoses (Choose all that apply): None applicable Discharge Plan Admission Admit Date/Time: 10/16/21 12:18 Primary Reason for Your Visit: Syncope Attending Provider: Mirela Ashley Primary Care Provider: Jeff Herndon Discharge Orders/Prescriptions Prescriptions: New levothyroxine 100 mcg Tablet 100 mcg PO DAILY@0600 Qty: 0 0RF levetiracetam [Keppra] 500 mg tablet 500 mg PO BID 30 Days Qty: 60 0RF Continued fluoxetine 20 MG tablet 20 mg PO DAILY Label Comments: mood pravastatin 40 MG tablet 40 mg PO DAILY Label Comments: cholesterol buspirone 5 MG tablet 10 tab PO QHS Label Comments: aspirin 81 MG tablet,chewable 81 mg PO DAILY@0800 multivitamin 1 EACH tablet 1 ea PO DAILY buspirone 5 MG tablet 5 mg PO DAILY omeprazole 20 MG capsule 20 mg PO DAILY melatonin 3 MG capsule 3 mg PO QHS guaifenesin 600 MG tablet extended release 12hr 600 mg PO Q12H PRN (Reason: Congestion) donepezil [Aricept] 10 mg Tablet 10 mg PO QHS acetaminophen 650 mg Tablet 650 mg PO Q6H PRN (Reason: PAIN/FEVER) mineral oil Enema 118 ml MD DAILY PRN (Reason: Constipation) Rx Instructions: discard any unused portion magnesium hydroxide [Milk of Magnesia] 400 mg/5 mL Suspension 30 ml PO DAILY PRN (Reason: Constipation) bisacodyl 10 mg Suppository 10 mg MD DAILY PRN (Reason: Constipation) fluocinolone 0.01 % Oil 1 applic TOPICAL DAILY ondansetron 4 mg Tablet,Disintegrating 4 mg PO Q6H PRN (Reason: Nausea) Discontinued levothyroxine 75 MCG tablet 75 mcg PO DAILY Other Ambulatory Orders: 30 Day Event Recorder Preventi (Routine) Location: None Selected Ordered By: Dr. Mirela Ashley Referrals / Follow Up: Jeff Herndon MD [Primary Care Provider] - Disposition Disposition (needs filled in before D/C Order can be placed): [facility] Charges/Coding Visit Charges Inpatient E&M: 18778 Disch Hosp
--- NOTE | 2021-10-17 15:02 | PHA.DC.MR ---
Pharmacy Service has performed discharge medication reconciliation for this patient. The patient's discharge medication list was reviewed for discrepancies and discrepancies were resolved. Home Medications fluoxetine 20 mg tablet 20 mg PO DAILY mood 11/06/13 pravastatin 40 mg tablet 40 mg PO DAILY cholesterol 11/23/13 buspirone 5 mg tablet 10 tab PO QHS anxiety 04/18/17 aspirin 81 mg chewable tablet 81 mg PO DAILY@0800 heart 06/19/17 buspirone 5 mg tablet 5 mg PO DAILY 01/09/18 multivitamin 1 ea PO DAILY SUPPLEMENT 01/09/18 omeprazole 20 mg capsule,delayed release 20 mg PO DAILY GERD 01/09/18 guaifenesin 600 mg tablet, extended release 12 hr 600 mg PO Q12H PRN Congestion 12/26/19 melatonin 3 mg capsule 3 mg PO QHS INSOMNIA 12/26/19 donepezil 10 mg tablet (Aricept) 10 mg PO QHS dementia 10/22/20 acetaminophen 650 mg tablet 650 mg PO Q6H PRN PAIN/FEVER 10/16/21 bisacodyl 10 mg rectal suppository 10 mg MN DAILY PRN Constipation 10/16/21 fluocinolone 0.01 % topical body oil 1 applic topical DAILY DRY SKIN 10/16/21 magnesium hydroxide 400 mg/5 mL oral suspension (Milk of Magnesia) 30 ml PO DAILY PRN Constipation 10/16/21 mineral oil 118 ml MN DAILY PRN Constipation 10/16/21 ondansetron 4 mg disintegrating tablet 4 mg PO Q6H PRN Nausea 10/16/21 levetiracetam 500 mg tablet (Keppra) 500 mg PO BID 30 days #60 tabs 10/17/21 levothyroxine 100 mcg tablet 100 mcg PO DAILY@0600 #0 tabs 10/17/21
--- NOTE | 2021-10-17 15:10 | CASEMGMT ---
Patient is ready to return [facility] pending testing results. [facility] did set up transport for 4p, however the test results are not back yet. [facility] will notify Marley at [facility]. [facility] then spoke with physician and she said patient can return today and if there are medication changes she will call the longterm to do so. [facility] rescheduled patient's garbage pick up worker time to 7p. [facility] notified patient's brother, RN, and legal guardian as well as Marley at [facility]. Plan: d/c back to [facility] under intermediate level of care. Physicians will transport via cot. Erlinda SAENZ
--- NOTE | 2021-10-17 18:11 | NURSING ---
Report called to Jak MCCARTNEY at [facility]
--- NOTE | 2021-10-17 18:37 | NURSING ---
patient has follow up with neurology desk [id number] 11/06/21 check in 1230 [id number] [place] [employer] ANALYST [address] [id number]
== END 2021-10-17 18:00 | disposition skilled nursing facility (03) ==
LOC: ED 12:21 → PCU 12:36
PROVIDERS: Admitting Provider Internal Medicine; Emergency Provider Emergency Medicine; PCP Family Medicine; Visit Provider Internal Medicine
DX: R55 Syncope and collapse (principal); G30.9 Alzheimer's disease, unspecified; F02.80 Dementia in other diseases classified elsewhere, unspecified severity, without behavioral disturbance, psychotic disturbance, mood disturbance, and anxiety; E78.5 Hyperlipidemia, unspecified; Z79.82 Long term (current) use of aspirin; Z79.899 Other long term (current) drug therapy; Z79.890 Hormone replacement therapy; Q90.9 Down syndrome, unspecified; E03.9 Hypothyroidism, unspecified; F79 Unspecified intellectual disabilities
CPT/HCPCS: 36415; 70450; 71045; 80053; 83735; 84100; 84439; 84443; 84481; 84484; 85025; 85027; 87811; 93005; 93306; 95819; 96360; 96361; 96372; 99218; 99284; J7030; A4216; G0378

== ENCOUNTER 2021-12-10 07:11 | Emergency (ER) | payer MEDICARE, MEDICAID, SELFPAY ==
[2021-12-10 07:12] VITALS: BP 111/86; PULSE 75; RESP 14; TEMP 36.6; O2SAT 96; BMI 20.8
[2021-12-10 07:16] VITALS: BP 123/91; PULSE 83; RESP 22; TEMP 36.2; O2SAT 96
--- NOTE | 2021-12-10 07:23 | RAD_ITS ---
STUDY: X-RAY CHEST REASON FOR EXAM: Male, 66 years old. Altered mental status. TECHNIQUE: Single AP portable view of the chest. COMPARISON: 10/22/2020 FINDINGS: Mild hypoventilatory changes. No focal infiltrate seen. There is no demonstrated pleural abnormality. Normal size heart. Normal mediastinum and andrea. Normal visualized pulmonary arteries. Normal visualized aortic arch and descending thoracic aorta. Levoscoliosis of the lower thoracic spine. No demonstrated acute osseous changes There is no demonstrated abnormality of the visualized soft tissue structures of the upper abdomen. RAD/Chest 1 View (Portable) IMPRESSION: No active pulmonary disease. Electronically Signed: Damaso Cleveland MD at 8:11 EDT ,
--- NOTE | 2021-12-10 07:23 | EKG12_ITS ---
Test Reason : Blood Pressure : / mmHG Vent. Rate : 071 BPM Atrial Rate : 071 BPM P-R Int : 164 ms QRS Dur : 076 ms QT Int : 402 ms P-R-T Axes : 056 037 028 degrees QTc Int : 436 ms Normal sinus rhythm Normal ECG Confirmed by LONNIE MAYER, LEXX ([id number]), offline editor FLACO LAMAR ([id number]) on 12/13/2021 9:36:56 AM Referred By: GURWINDER Confirmed By:LEXX FLEMING MD
--- NOTE | 2021-12-10 07:23 | CT_ITS ---
STUDY: CT BRAIN WITHOUT CONTRAST REASON FOR EXAM: Male, 66 years old. Altered mental status. RADIATION DOSAGE (If Supplied By Facility): CTDIvol = ( 44.99 ) mGy, DLP = ( 745.49 ) mGycm TECHNIQUE: Transaxial CT imaging of the brain was performed without administration of intravenous contrast material. Individualized dose optimization techniques were used for this CT. COMPARISON: 07/22/2021. FINDINGS: Normal soft tissue structures. Normal calvarium. There is moderate cerebral atrophy with widening of the extra-axial spaces and ventricular dilatation. There are areas of decreased attenuation within the white matter tracts of the supratentorial brain, consistent with microvascular disease changes. 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 Small old lacunar infarct in the left basal ganglia. Normal brainstem. Normal cerebellum. There is no intracranial hemorrhage. There are no findings of an acute ischemic infarction. Normal visualized paranasal sinuses. CT/Brain/Head without Contrast IMPRESSION: 1. Chronic involutional changes of the brain. 2. 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 3. No acute intracranial process. Electronically Signed: Damaso Cleveland MD at 8:19 EDT ,
--- NOTE | 2021-12-10 07:25 | EDS_ITS ---
HPI History of Present Illness Chief Complaint: Seizure Narrative Narrative: 66-year-old male with history of dementia, MRDD, seizure disorder presenting after perceived seizure at his halfway. Patient did not arrive with a caregiver. He is unable to give any history as he is nonverbal. They report was that he was just finishing up going to the bathroom and stiffened up and might have had a seizure. It is unknown whether he fell to the floor or was helped down. [facility] Medical History Anxiety and depression Bowel obstruction Cellulitis DDD (degenerative disc disease) Dementia Down syndrome Dyslipidemia Hypothyroid Nausea with vomiting, unspecified Porokeratosis Home Medications fluoxetine 20 mg tablet 20 mg PO DAILY mood 11/06/13 [History Last Taken 06/18/17] pravastatin 40 mg tablet 40 mg PO DAILY cholesterol 11/23/13 [History Last Taken 06/18/17] buspirone 5 mg tablet 10 tab PO QHS anxiety 04/18/17 [History Last Taken 06/18/17] buspirone 5 mg tablet 5 mg PO DAILY 01/09/18 [History Last Taken Unknown] multivitamin 1 ea PO DAILY SUPPLEMENT 01/09/18 [History Last Taken Unknown] omeprazole 20 mg capsule,delayed release 20 mg PO DAILY GERD 01/09/18 [History Last Taken Unknown] guaifenesin 600 mg tablet, extended release 12 hr 600 mg PO Q12H PRN Congestion 12/26/19 [History Last Taken Unknown] melatonin 3 mg capsule 3 mg PO QHS INSOMNIA 12/26/19 [History Last Taken 06/23/21] donepezil 10 mg tablet (Aricept) 10 mg PO QHS dementia 10/22/20 [History Last Taken Unknown] bisacodyl 10 mg rectal suppository 10 mg WI DAILY PRN Constipation 10/16/21 [History Last Taken Unknown] fluocinolone 0.01 % topical body oil 1 applic topical DAILY DRY SKIN 10/16/21 [History Last Taken Unknown] magnesium hydroxide 400 mg/5 mL oral suspension (Milk of Magnesia) 30 ml PO DAILY PRN Constipation 10/16/21 [History Last Taken Unknown] mineral oil 118 ml WI DAILY PRN Constipation 10/16/21 [History Last Taken Unknown] ondansetron 4 mg disintegrating tablet 4 mg PO Q6H PRN Nausea 10/16/21 [History Last Taken Unknown] levetiracetam 500 mg tablet (Keppra) 500 mg PO BID 30 days #60 tabs 10/17/21 [Rx Last Taken Unknown] cephalexin 500 mg capsule 500 mg PO Q12 #13 caps 12/10/21 [Rx Last Taken Unknown] levetiracetam 500 mg tablet (Keppra) 500 mg PO BID #60 tabs 12/10/21 [Rx Last Taken Unknown] levothyroxine 75 mcg tablet 75 mcg PO DAILY 12/10/21 [History Last Taken Unknown] Allergy/AdvReac Type Severity Reaction Status Date / Time cardboard AdvReac Rash Uncoded 12/10/21 07:17 Family History Father Heart disease Myocardial infarction Cancer Mother CVA (cerebral vascular accident) Carotid artery disease Surgical History History of hernia surgery Social History housing: other details: care home. Smoking Status: Never smoker alcohol intake: never substance use type: does not use ROS ROS ED Review of Systems ROS Unobtainable: due to mental status EXAM Physical Exam Const Vital Signs: 12/10/21 07:12 12/10/21 07:16 Temperature 97.9 F 97.1 F L Temperature Source Temporal Temporal Pulse Rate 75 83 Respiratory Rate 14 22 H Blood Pressure 111/86 H 123/91 H Blood Pressure Mean 94 101 Pulse Ox 96 96 Oxygen Delivery Method Room Air Room Air Positive well nourished General Appearance ED: NAD; Negative for cyanotic or pallor HEENT Reports normocephalic, TM's clear and moist mucous membranes Negative for trauma Face and Sinus: normal facial exam and face symmetric Nose: nasal mucous membranes and turbinates normal Tympanic Membrane ED: Yes TM's clear Mouth ED: Yes oral and palatal mucosa normal, Yes lips normal and Yes tongue normal Mouth: oral and palatal mucosa normal, lips normal and tongue normal Throat: posterior oropharynx normal Eyes PERRL and EOMs intact bilaterally Chest Wall inspection of chest normal and palpation of chest normal Resp normal respiratory effort and clear to auscultation bilaterally Auscultation: Negative for rales, rhonchi or wheezes Cardio regular rate and regular rhythm GI normal to inspection, nondistended, normoactive bowel sounds Neuro oriented x3 and CN's II-XII intact bilaterally Sensorium / Orientation: alert Motor Exam: strength 5/5 throughout Psych mental status grossly normal Skin General Skin Exam: Negative for jaundice or pallor MDM MDM MDM Narrative Medical decision making narrative: Patient seen and evaluated on arrival. He has a history of MRDD, dementia, seizure disorder and he is nonverbal. I do not find any signs of trauma. He has a slight tremor but blink/responds to visual threat. He does not follow commands. Review of the medical record shows that he was here previously inpatient. He had a echocardiogram performed because there was concern for syncope. Apparently this was limited and does not show an EF colic function. Left ventricle size was normal and functional. Patient also found to have an elevated TSH (5.93). His T3 was low and his T4 was normal. His Synthroid was increased from 75mcg to 100 mcg.? I do not see any repeat thyroid studies in our system. He also had an SOC consult and he was started on Keppra 500 mg twice daily. Looking at the patient's medicine list from the facility does not show any Keppra on this.? CBC within normal limits. CMP is also normal. High- sensitivity troponin was checked and is 7. EKG on my interpretation shows a normal sinus rhythm with a ventricular rate of 71 bpm without sign of ischemic change or dysrhythmia. TSH is within normal limits now. Free T3 and T4 also normal. CT brain negative for acute findings. Patient was given 500 mg of IV Keppra in the ED. patient did have a cath urine specimen which showed 250 occult blood and some RBCs. There is no contamination and there is 2+ bacteria. It is 25 leukocyte esterase. Since he cannot tell me if he has had any urinary symptoms and he has reported altered mental status I will cover him for UTI. He is given a dose of Keflex in the ER. No reported seizures while he has been here. I spoke with Dr. Tyler who is on-call for Dr. Herndon and discussed the case with her. Apparently his Keppra is not on his med list and I did write a prescription for him in the paper form that they can fill at the [facility] to start giving him. His Keflex was also printed. Dr. Tyler requested this because then they can fill it at the facility. He will need another dose of both Keflex and Keppra tonight. I do not believe he needs to be admitted. Patient will be transported back to his facility in stable condition. Impression: 1. Seizure 2. Altered mental status resolved 3. History of hypothyroidism 4. UTI Lab Data Attestation: I reviewed the patient's lab results. Labs: Laboratory Results - last 24 hr 12/10/21 12/10/21 12/10/21 07:25 07:25 08:20 WBC 5.1 RBC 4.27 L Hgb 14.5 Hct 43.5 MCV 101.9 H MCH 34.0 H MCHC 33.3 RDW Std Deviation 52.0 H RDW Coeff of Hermann 13.9 Plt Count 374 MPV 9.1 Immature Gran % (Auto) 0.600 Neut % (Auto) 54.7 Lymph % (Auto) 29.1 [place] % (Auto) 12.2 H Eos % (Auto) 1.6 Baso % (Auto) 1.8 H Absolute Neuts (auto) 2.8 Absolute Lymphs (auto) 1.48 Nucleated RBC % 0 Sodium 140 Potassium 4.0 Chloride 103 Carbon Dioxide 21.0 Anion Gap 16 H BUN 13 Creatinine 1.12 Estim Creat Clear Calc 47.22 Est GFR (MDRD) Af Amer 85 Est GFR (MDRD) Non-Af 70 BUN/Creatinine Ratio 11.6 Glucose 105 Calcium 8.5 Total Bilirubin 0.40 AST 46 H ALT 61 Alkaline Phosphatase 101 Troponin I High Sens 7 Total Protein 7.8 Albumin 3.2 Globulin 4.6 H Albumin/Globulin Ratio 0.7 L TSH 1.79 Free T4 1.37 Free T3 pg/dL 2.2 Urine Color Yellow Urine Clarity Sl. Cloudy Urine pH 5.0 Ur Specific [place] 1.025 Urine Protein 30 H Urine Glucose (UA) Normal Urine Ketones 5 H Urine Occult Blood 250 H Urine Nitrite Negative Urine Bilirubin Negative Urine Urobilinogen Normal Ur Leukocyte Esterase 25 H Urine RBC 10-25 SEEN Urine WBC 0-5 SEEN Ur Squamous Epith Cells 0 SEEN Urine Bacteria 2+ Urine Mucus 0 SEEN Radiography Diagnostic Testing: Clinical Impression(s) from Imaging Studies Brain CT 12/10/21 07:23 IMPRESSION: 1. Chronic involutional changes of the brain. 2. 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 3. No acute intracranial process. Electronically Signed: Damaso Cleveland MD at 8:19 EDT , Chest X-Ray 12/10/21 07:23 IMPRESSION: No active pulmonary disease. Electronically Signed: Damaso Cleveland MD at 8:11 EDT , Discharge Plan Triage Chief Complaint: Seizure ED Provider: Ervin Hicks Dx/Rx/DC Orders Instructions: ED Seizure, Recurrent (Adult), ED Bladder Infection, Male (Adult) Prescriptions: New levetiracetam [Keppra] 500 mg tablet 500 mg PO BID Qty: 60 0RF cephalexin 500 mg capsule 500 mg PO Q12 Qty: 13 0RF No Action fluoxetine 20 MG tablet 20 mg PO DAILY Label Comments: mood pravastatin 40 MG tablet 40 mg PO DAILY Label Comments: cholesterol buspirone 5 MG tablet 10 tab PO QHS Label Comments: multivitamin 1 EACH tablet 1 ea PO DAILY buspirone 5 MG tablet 5 mg PO DAILY omeprazole 20 MG capsule 20 mg PO DAILY melatonin 3 MG capsule 3 mg PO QHS guaifenesin 600 MG tablet extended release 12hr 600 mg PO Q12H PRN (Reason: Congestion) donepezil [Aricept] 10 mg Tablet 10 mg PO QHS mineral oil Enema 118 ml WI DAILY PRN (Reason: Constipation) Rx Instructions: discard any unused portion magnesium hydroxide [Milk of Magnesia] 400 mg/5 mL Suspension 30 ml PO DAILY PRN (Reason: Constipation) bisacodyl 10 mg Suppository 10 mg WI DAILY PRN (Reason: Constipation) fluocinolone 0.01 % Oil 1 applic TOPICAL DAILY ondansetron 4 mg Tablet,Disintegrating 4 mg PO Q6H PRN (Reason: Nausea) levetiracetam [Keppra] 500 mg tablet 500 mg PO BID 30 Days Qty: 60 0RF levothyroxine 75 mcg tablet 75 mcg PO DAILY Primary Care Provider: Jeff Herndon Referrals: Jeff Herndon MD [Primary Care Provider] - Disposition Disposition: Home, Self Care
[2021-12-10 07:33] LABS: Absolute Lymphocyte Count 1.48 X10^3/uL (0.83-4.51); Absolute Neutrophil Count 2.8 X10^3/uL (2.0-7.7); Basophil# 0.09 X10^3/uL; Basophil% 1.8 % (0-1); Eosinophil# 0.08 X10^3/uL; Eosinophils% 1.6 % (0-5); Hematocrit 43.5 % (40-54); Hemoglobin 14.5 g/dL (13.0-16.5); Lymphocyte # 1.48 X10^3/ul (0.83-4.51); Lymphocyte % 29.1 % (19-41); Mean Corp Hgb Conc 33.3 g/dL (32-36); Mean Corpuscular Volume 101.9 fL (80-94); Mean Platelet Vol. 9.1 fl (6.2-12.0); Monocyte# 0.62 X10^3/uL; Monocyte% 12.2 % (0-10); NRBC Flagged by Analyzer 0 % (0-5); Neutrophil # 2.79 X10^3/uL (2.7-7.7); Neutrophil % 54.7 % (47-70); Platelet Count 374 K/mm3 (150-450); RBC Distribution Width CV 13.9 % (11.6-14.6); Red Blood Count 4.27 M/mm3 (4.6-6.2); White Blood Count 5.1 K/mm3 (4.4-11.0)
--- NOTE | 2021-12-10 07:51 | ED.RN ---
LEGAL GUARDIAN KAILASH NOTIFIED OF PRESENCE IN ED. REPORTS SHE WOULD LIKE UPDATE ON PLAN OF CARE WHEN RESULTS RETURN.
[2021-12-10 08:04] LABS: ALB/GLOB Ratio 0.7 RATIO (0.9-2.4); AST(SGOT) 46 U/L (15-37); Alanine Aminotransfer ALT/SGPT 61 U/L (16-61); Albumin, Serum 3.2 g/dL (3.2-5.0); Alkaline Phosphatase 101 U/L (45-117); Anion Gap 16 (5-15); BUN 13 mg/dL (7-18); BUN/Creat Ratio 11.6 RATIO (10-20); Calcium,Total 8.5 mg/dL (8.5-10.1); Chloride 103 mmol/L (98-107); Creatinine, Serum 1.12 mg/dL (0.70-1.30); EST Glomerular Filtration Rate 70 mL/min (>60); Est Glom Filt Rate - Afr Amer 85 mL/min (>60); Estimated Creatinine Clearance 47.22 ml/min; Free T3 2.2 pg/mL (2.18-3.98); Globulin 4.6 g/dL (2.2-4.2); Glucose 105 mg/dL (74-106); Protein, Total 7.8 g/dL (6.4-8.2); Sodium Level 140 mmol/L (136-145); T4 Free Direct 1.37 ng/dL (0.76-1.46); Thyroid Stim Hormone (TSH) 1.79 uIU/mL (0.358-3.74); Troponin-I HS (w/2H Reflex) 7 pg/mL (3.0-78.0)
[2021-12-10 08:24] LABS: Mucous, Urine 0 SEEN /hpf (<or=2+); Squamous Epithelial Cells - UA 0 SEEN /hpf (0-5)
[2021-12-10 08:26] LABS: Color, Urine Yellow (Yellow); Glucose, Dipstick Normal (Normal); Ketone-Dipstick 5 mg/dl (Negative); Leukocyte Esterase-Dipstick 25 /ul (Negative); Nitrite-Dipstick Negative (Negative); Occult Blood-Urine 250 /ul (Negative); Protein-Dipstick 30 mg/dl (Negative); Specific Gravity, Urine 1.025 (1.002-1.030); Urine Bilirubin Dipstick Negative (Negative); Urine Clarity Sl. Cloudy (Clear); Urine Urobilinogen Normal (Normal)
[2021-12-10 08:34] LABS: Bacteria 2+ /hpf (None Seen); Red Blood Cells-Urine 10-25 SEEN /hpf (0-5); White Blood Cells 0-5 SEEN /hpf (0-5)
[2021-12-10] MEDS: Cephalexin 250 MG Capsule 500 MG PO (08:57)
--- NOTE | 2021-12-10 08:59 | ED.RN ---
Called physicians to take pt back to [facility]. ETA 20 min
[2021-12-10 09:10] VITALS: BP 102/67; PULSE 66; RESP 16; TEMP 36.4; O2SAT 97
[2021-12-10 09:11] VITALS: BP 102/67; PULSE 66; RESP 16; TEMP 36.4; O2SAT 97
--- NOTE | 2021-12-10 09:24 | ED.RN ---
THIS RN CALLED TO UPDATE PT GUARDIAN. PT GUARDIAN UPDATED ON PT STATUS AND DISCHARGE INFORMATION VIA . ATTEMPTED TO CALL REPORT TO [facility], RELAY MAN ANSWERED NO RN AVAILABLE TO GIVE REPORT. THIS RN ON HOLD FOR 10 MINUTES CALL ENDED.
[2021-12-10 09:30] LABS: Reflex Troponin-HS? (from REC) Y
== END 2021-12-10 09:35 | disposition skilled nursing facility (03) ==
PROVIDERS: Emergency Provider Student in an Organized Health Care Education/Training Program; PCP Family Medicine; Visit Provider Student in an Organized Health Care Education/Training Program
DX: G40.909 Epilepsy, unspecified, not intractable, without status epilepticus (principal); F03.90 Unspecified dementia, unspecified severity, without behavioral disturbance, psychotic disturbance, mood disturbance, and anxiety; Q90.9 Down syndrome, unspecified; N39.0 Urinary tract infection, site not specified; E78.5 Hyperlipidemia, unspecified; E03.9 Hypothyroidism, unspecified; F32.A Depression, unspecified; F41.9 Anxiety disorder, unspecified; Z79.899 Other long term (current) drug therapy
CPT/HCPCS: 70450; 71045; 80053; 81001; 84439; 84443; 84481; 84484; 85025; 87086; 93005; 96365; 99285; J7050; A4216

== ENCOUNTER 2022-03-04 12:58 | Emergency (ER) | payer MEDICARE, MEDICAID, SELFPAY ==
[2022-03-04 12:58] VITALS: BP 113/71; PULSE 84; RESP 18; TEMP 36.3; O2SAT 90; BMI 19.9
[2022-03-04 13:04] VITALS: BP 113/71; PULSE 86; RESP 21; TEMP 36.3; O2SAT 92
--- NOTE | 2022-03-04 13:23 | RAD_ITS ---
STUDY: X-RAY CHEST REASON FOR EXAM: Male, 67 years old. Hypotension TECHNIQUE: Single AP portable view of the chest. COMPARISON: 12/10/2021 FINDINGS: EKG leads overlie the chest The lungs are clear and expanded. There is no demonstrated pleural abnormality. Normal size heart. Normal mediastinum and andrea. Normal visualized pulmonary arteries. Normal visualized aortic arch and descending thoracic aorta. There is a dextroscoliosis of the thoracic spine. Normal visualized ribs, clavicles, and shoulders. There is no demonstrated abnormality of the visualized soft tissue structures of the upper abdomen. RAD/Chest 1 View (Portable) IMPRESSION: No acute pulmonary process, no interval change Electronically Signed: Jackson Solis MD at 13:51 EST ,
--- NOTE | 2022-03-04 13:24 | EKG12_ITS ---
Test Reason : Blood Pressure : / mmHG Vent. Rate : 082 BPM Atrial Rate : 082 BPM P-R Int : 142 ms QRS Dur : 070 ms QT Int : 354 ms P-R-T Axes : 050 012 005 degrees QTc Int : 413 ms Normal sinus rhythm Normal ECG Confirmed by LONNIE MAYER, LEXX ([id number]), copy editor FLACO LAMAR ([id number]) on 03/07/2022 11:24:23 AM Referred By: Confirmed By:LEXX FLEMING MD
--- NOTE | 2022-03-04 13:25 | EX.ED.DYSGE1 ---
HPI History of Present Illness Chief Complaint: Hypotension Informant: EMS and SNF Onset/Context/Timing Onset: Today Timing: Intermittent Current Severity: Gone Narrative Narrative: 67-year-old male unable to give any history. He does have a history of MRDD recent COVID and is DNR CCA. Patient sent in from a snf for reported transient hypotension. Had a pressure of around 99/60. No complaints. No reported fever. No vomiting or diarrhea. Patient himself unable to give any history at all. Prior similar symptoms: No Recent Illness/Hospitalization: No PFSH PFSH Medical History Anxiety and depression Bowel obstruction Cellulitis Convulsion DDD (degenerative disc disease) Dementia Down syndrome Dyslipidemia Hypophosphatemia Hypothyroid Nausea with vomiting, unspecified Obsessive compulsive disorder Porokeratosis Home Medications fluoxetine 20 mg tablet 20 mg PO DAILY mood 11/06/13 [History Last Taken 06/18/17] pravastatin 40 mg tablet 40 mg PO DAILY cholesterol 11/23/13 [History Last Taken 06/18/17] buspirone 5 mg tablet 10 tab PO QHS anxiety 04/18/17 [History Last Taken 06/18/17] buspirone 5 mg tablet 5 mg PO DAILY 01/09/18 [History Last Taken Unknown] multivitamin 1 ea PO DAILY SUPPLEMENT 01/09/18 [History Last Taken Unknown] omeprazole 20 mg capsule,delayed release 20 mg PO DAILY GERD 01/09/18 [History Last Taken Unknown] guaifenesin 600 mg tablet, extended release 12 hr 600 mg PO Q12H PRN Congestion 12/26/19 [History Last Taken Unknown] melatonin 3 mg capsule 3 mg PO QHS INSOMNIA 12/26/19 [History Last Taken 06/23/21] donepezil 10 mg tablet (Aricept) 10 mg PO QHS dementia 10/22/20 [History Last Taken Unknown] bisacodyl 10 mg rectal suppository 10 mg NV DAILY PRN Constipation 10/16/21 [History Last Taken Unknown] fluocinolone 0.01 % topical body oil 1 applic topical DAILY DRY SKIN 10/16/21 [History Last Taken Unknown] magnesium hydroxide 400 mg/5 mL oral suspension (Milk of Magnesia) 30 ml PO DAILY PRN Constipation 10/16/21 [History Last Taken Unknown] mineral oil 118 ml NV DAILY PRN Constipation 10/16/21 [History Last Taken Unknown] ondansetron 4 mg disintegrating tablet 4 mg PO Q6H PRN Nausea 10/16/21 [History Last Taken Unknown] levothyroxine 75 mcg tablet 75 mcg PO DAILY 12/10/21 [History Last Taken Unknown] acetaminophen 325 mg capsule 650 mg PO Q6H PRN PAIN/FEVER 03/04/22 [History Last Taken Unknown] aspirin 81 mg tablet 81 mg PO DAILY 03/04/22 [History Last Taken Unknown] levetiracetam 500 mg tablet (Keppra) 750 mg PO BID 03/04/22 [History Last Taken Unknown] Allergy/AdvReac Type Severity Reaction Status Date / Time cardboard AdvReac Rash Uncoded 03/04/22 13:09 Family History Father Heart disease Myocardial infarction Cancer Mother CVA (cerebral vascular accident) Carotid artery disease Surgical History History of hernia surgery Social History housing: other details: intermediate. Smoking Status: Never smoker alcohol intake: never substance use type: does not use ROS ROS ED ROS Narrative Unable to obtain. Review of Systems ROS Unobtainable: due to mental status EXAM Physical Exam Narrative Exam Narrative: 67-year-old male vital signs stable afebrile does not look septic or toxic. His temperature is 97.4. His blood pressure is 113/71. His pulse ox is 92% on room air no hypoxia. He does not look septic or toxic. H EENT exam pupils round reactive light. No trauma. Very dry tongue and mucous membranes. Neck nontender no JVD. No lymphadenopathy. Lungs clear to auscultation bilaterally. Heart regular rate and rhythm rate about 85 no murmur. Chest wall nontender. Abdomen soft nontender nondistended normal bowel sounds no peritoneal signs. Extremities are nontender. No edema. No calf tenderness. Neurologically his eyes are open. He does not follow any commands. He does not answer any questions. He is really not doing much in the way of moving his extremities. Const Vital Signs: 03/04/22 12:58 03/04/22 13:04 03/04/22 14:15 Temperature 97.4 F L 97.4 F L Temperature Source Temporal Temporal Pulse Rate 84 86 78 Respiratory Rate 18 21 H 14 Blood Pressure 113/71 113/71 117/95 H Blood Pressure Mean 85 85 102 Pulse Ox 90 92 95 Oxygen Delivery Method Room Air Room Air Room Air 03/04/22 14:15 Temperature 98.4 F Temperature Source Temporal Pulse Rate 78 Respiratory Rate 14 Blood Pressure 117/95 H Blood Pressure Mean 102 Pulse Ox 95 Oxygen Delivery Method Room Air Positive well nourished, well developed and contractures; Negative for obese, cachectic or unkempt General Appearance ED: well developed, contractures and NAD; Negative for unkempt, cachectic, cyanotic or diaphoretic Nutritional Appearance: Negative for cachectic or obese HEENT Reports dry mucous membranes; Denies moist mucous membranes Negative for trauma or tenderness Mouth ED: Yes dry mucous membranes Mouth: dry mucous membranes Eyes PERRL and EOMs intact bilaterally General Eye ED: Negative for pale conjunctiva or scleral icterus Neck General: Negative for tenderness Lymph Lymphatic: Negative for other Chest Wall inspection of chest normal and palpation of chest normal Chest: Negative for other Resp normal respiratory effort and clear to auscultation bilaterally Effort and Inspection: Negative for retractions Auscultation: Negative for rales, rhonchi or wheezes Cardio regular rate, regular rhythm, S1 normal heart sound, S2 normal heart sound and no murmurs Rate: Negative for bradycardia or tachycardic GI normal to inspection, nondistended, normoactive bowel sounds, non-tender, non-distended and no masses Inspection: Negative for abdominal distention Auscultation: normoactive bowel sounds Palpation: soft; Negative for tender, guarding, mass or rebound tenderness present Back/Spine no CVA tenderness Extremity normal to inspection General Extremety ED: Negative for edema or tenderness General Extremity: Negative for edema Neuro No oriented x3 Neuro Narrative: Eyes open. Limited movement. Does not follow any commands. Does not answer any questions. Sensorium / Orientation: alert Psych mental status grossly normal Appearance: Negative for unkempt Attitude: No agitated Mood & Affect: Negative for depressed, anxious or tearful Skin no rashes or lesions noted and no wounds Rashes: No rashes noted Trauma: Negative for abrasion Wounds: Negative for wounds noted MDM MDM MDM Narrative Medical decision making narrative: 67-year-old male with MRDD and DNR CCA recent COVID sent in for transient hypotensive. Clinical looks dehydrated. He will be treated with a liter of normal saline. Screening labs, chest x-ray and EKG will be obtained. Repeat exam at 2:38 PM unchanged. Patient resting comfortably. He has been normotensive the entire time he is here. His labs do show some mild dehydration with a sodium 151 and a BUN of 20 creatinine 1.2. He will be discharged back to extended care facility. Lab Data Attestation: I reviewed the patient's lab results. Lab results narrative: CBC unremarkable white count of 4.9. H&H 14.9 and 46. Platelets 264. Sodium is elevated at 151. Is 6 BUN of 20 creatinine 1.23. Liver enzymes unremarkable. UA is negative. No white or red cells. No nitrites. Only 1+ bacteria. Labs: Laboratory Results - last 24 hr 03/04/22 03/04/22 03/04/22 13:45 13:45 14:00 WBC 4.9 RBC 4.38 L Hgb 14.9 Hct 46.5 MCV 106.2 H MCH 34.0 H MCHC 32.0 RDW Std Deviation 56.7 H RDW Coeff of Hermann 14.3 Plt Count 264 MPV 10.1 Immature Gran % (Auto) 0.400 Neut % (Auto) 63.4 Lymph % (Auto) 21.0 Morgan % (Auto) 13.8 H Eos % (Auto) 0.0 Baso % (Auto) 1.4 H Absolute Neuts (auto) 3.1 Absolute Lymphs (auto) 1.02 Nucleated RBC % 0 Sodium 151 H Potassium 3.7 Chloride 114 H Carbon Dioxide 31.0 Anion Gap 6 BUN 20 H Creatinine 1.23 Estim Creat Clear Calc 40.57 Est GFR (MDRD) Af Amer 76 Est GFR (MDRD) Non-Af 63 BUN/Creatinine Ratio 16.3 Glucose 105 Calcium 8.6 Total Bilirubin 0.30 AST 37 ALT 52 Alkaline Phosphatase 115 Total Protein 7.8 Albumin 3.3 Globulin 4.5 H Albumin/Globulin Ratio 0.7 L Urine Color Yellow Urine Clarity Clear Urine pH 5.0 Ur Specific [place] 1.025 Urine Protein 30 H Urine Glucose (UA) Normal Urine Ketones 5 H Urine Occult Blood 50 H Urine Nitrite Negative Urine Bilirubin Negative Urine Urobilinogen 1 H Ur Leukocyte Esterase 25 H Urine RBC 0-5 SEEN Urine WBC 0-5 SEEN Ur Squamous Epith Cells 0 SEEN Urine Bacteria 1+ Urine Mucus 0 SEEN Radiography Chest X-Ray - ED: 1 View, Read by ED Physician, Read by Radiologist, Heart, Lungs, Mediastinum, Bony Structures, No Acute Disease and Chronic Changes Diagnostic Testing: Clinical Impression(s) from Imaging Studies Chest X-Ray 03/04/22 13:23 IMPRESSION: No acute pulmonary process, no interval change Electronically Signed: Jackson Solis MD at 13:51 EST , Chest x-ray, portable, single view myself and radiologist shows chronic changes no acute process. Normal cardiac silhouette. Normal lung shipley. Rhythm Strip Rhythm Strip: Sinus Rhythm Rate: 82 Ectopy: None EKG Initial EKG: Attestation: I personally reviewed and interpreted this EKG as follows: Interpretation: Sinus Rhythm and No Acute Injury Pattern Comments: Normal sinus rhythm rate of 82 no acute signs of WA or ischemia. Discharge Plan Triage Chief Complaint: Hypotension ED Provider: Dutch Albright Dx/Rx/DC Orders Clinical Impression: Acute hypotension, Acute dehydration, Acute hypernatremia Instructions: Hypotension Dc, ED Dehydration (Adult) Prescriptions: No Action fluoxetine 20 MG tablet 20 mg PO DAILY Label Comments: mood pravastatin 40 MG tablet 40 mg PO DAILY Label Comments: cholesterol buspirone 5 MG tablet 10 tab PO QHS Label Comments: multivitamin 1 EACH tablet 1 ea PO DAILY buspirone 5 MG tablet 5 mg PO DAILY omeprazole 20 MG capsule 20 mg PO DAILY melatonin 3 MG capsule 3 mg PO QHS guaifenesin 600 MG tablet extended release 12hr 600 mg PO Q12H PRN (Reason: Congestion) donepezil [Aricept] 10 mg Tablet 10 mg PO QHS mineral oil Enema 118 ml NV DAILY PRN (Reason: Constipation) Rx Instructions: discard any unused portion magnesium hydroxide [Milk of Magnesia] 400 mg/5 mL Suspension 30 ml PO DAILY PRN (Reason: Constipation) bisacodyl 10 mg Suppository 10 mg NV DAILY PRN (Reason: Constipation) fluocinolone 0.01 % Oil 1 applic TOPICAL DAILY ondansetron 4 mg Tablet,Disintegrating 4 mg PO Q6H PRN (Reason: Nausea) levothyroxine 75 mcg tablet 75 mcg PO DAILY aspirin 81 mg Tablet 81 mg PO DAILY acetaminophen 325 mg Capsule 650 mg PO Q6H PRN (Reason: PAIN/FEVER) levetiracetam [Keppra] 500 mg tablet 750 mg PO BID Primary Care Provider: Jeff Herndon Referrals: Jeff Herndon MD [Primary Care Provider] - 3-5 Days Activity Restrictions/Additional Instructions: His vital signs have been stable the entire time in the emergency department. By his labs he looks a little dehydrated with an elevated sodium and elevated BUN. We gave him a liter of fluid here. Make sure he is getting plenty of fluids. Have him reevaluated by his primary care physician or the director of medical education your facility. His labs otherwise were unremarkable. Disposition Disposition: Home, Self Care
[2022-03-04] MEDS: 0.9% Normal Saline 1,000 ML 1000 ML IV (13:45)
[2022-03-04 13:55] LABS: Absolute Lymphocyte Count 1.02 X10^3/uL (0.83-4.51); Absolute Neutrophil Count 3.1 X10^3/uL (2.0-7.7); Basophil# 0.07 X10^3/uL; Basophil% 1.4 % (0-1); Hematocrit 46.5 % (40-54); Hemoglobin 14.9 g/dL (13.0-16.5); Lymphocyte # 1.02 X10^3/ul (0.83-4.51); Mean Corpuscular Volume 106.2 fL (80-94); Mean Platelet Vol. 10.1 fl (6.2-12.0); Monocyte# 0.67 X10^3/uL; Monocyte% 13.8 % (0-10); NRBC Flagged by Analyzer 0 % (0-5); Neutrophil # 3.07 X10^3/uL (2.7-7.7); Neutrophil % 63.4 % (47-70); Platelet Count 264 K/mm3 (150-450); RBC Distribution Width CV 14.3 % (11.6-14.6); RBC Distribution Width SD 56.7 fl (35.1-43.9); Red Blood Count 4.38 M/mm3 (4.6-6.2); White Blood Count 4.9 K/mm3 (4.4-11.0)
[2022-03-04 14:09] LABS: ALB/GLOB Ratio 0.7 RATIO (0.9-2.4); AST(SGOT) 37 U/L (15-37); Alanine Aminotransfer ALT/SGPT 52 U/L (16-61); Albumin, Serum 3.3 g/dL (3.2-5.0); Alkaline Phosphatase 115 U/L (45-117); Anion Gap 6 (5-15); BUN 20 mg/dL (7-18); BUN/Creat Ratio 16.3 RATIO (10-20); Calcium,Total 8.6 mg/dL (8.5-10.1); Chloride 114 mmol/L (98-107); Creatinine, Serum 1.23 mg/dL (0.70-1.30); EST Glomerular Filtration Rate 63 mL/min (>60); Est Glom Filt Rate - Afr Amer 76 mL/min (>60); Estimated Creatinine Clearance 40.57 ml/min; Globulin 4.5 g/dL (2.2-4.2); Glucose 105 mg/dL (74-106); Potassium 3.7 mmol/L (3.5-5.1); Protein, Total 7.8 g/dL (6.4-8.2); Sodium Level 151 mmol/L (136-145)
[2022-03-04 14:10] LABS: Mucous, Urine 0 SEEN /hpf (<or=2+); Squamous Epithelial Cells - UA 0 SEEN /hpf (0-5)
[2022-03-04 14:15] VITALS: BP 117/95; PULSE 78; RESP 14; TEMP 36.9; O2SAT 95
[2022-03-04 14:18] LABS: Color, Urine Yellow (Yellow); Glucose, Dipstick Normal (Normal); Ketone-Dipstick 5 mg/dl (Negative); Leukocyte Esterase-Dipstick 25 /ul (Negative); Nitrite-Dipstick Negative (Negative); Occult Blood-Urine 50 /ul (Negative); Protein-Dipstick 30 mg/dl (Negative); Specific Gravity, Urine 1.025 (1.002-1.030); Urine Bilirubin Dipstick Negative (Negative); Urine Clarity Clear (Clear); Urine Urobilinogen 1 mg/dl (Normal)
[2022-03-04 14:29] LABS: White Blood Cells 0-5 SEEN /hpf (0-5)
[2022-03-04 14:33] LABS: Bacteria 1+ /hpf (None Seen); Red Blood Cells-Urine 0-5 SEEN /hpf (0-5)
--- NOTE | 2022-03-04 15:07 | ED.RN ---
This RN when calling report to DC patient, spoke with Sheree MCCARTNEY at [facility], she states patient was sent in because he is not able to swallow. Dr. Albright notified and speakig with Sheree.
[2022-03-04 15:20] VITALS: BP 102/74; PULSE 77; RESP 18; TEMP 36.7; O2SAT 94
== END 2022-03-04 15:46 | disposition home or self-care (01) ==
PROVIDERS: Emergency Provider Emergency Medicine; PCP Family Medicine; Visit Provider Emergency Medicine
DX: Z00.00 Encounter for general adult medical examination without abnormal findings (principal)
CPT/HCPCS: 99285; 96360; 96361; 71045; 80053; 81001; 85025; 93005; J7030; A4216

== ENCOUNTER 2022-03-06 07:35 | Inpatient (IN) | payer MEDICARE, MEDICAID, SELFPAY ==
[2022-03-06] VITALS (25 sets, daily range): BP systolic 90–133; BP diastolic 60–87; PULSE 64–102; RESP 16–22; TEMP 36.4–37; O2SAT 87–98; BMI 20.7; BMI 18.7
--- NOTE | 2022-03-06 07:44 | EKG12_ITS ---
Test Reason : SOB Blood Pressure : / mmHG Vent. Rate : 086 BPM Atrial Rate : 086 BPM P-R Int : 142 ms QRS Dur : 082 ms QT Int : 368 ms P-R-T Axes : 063 059 045 degrees QTc Int : 440 ms Normal sinus rhythm Normal ECG Confirmed by ARUN MAYER, OMAR ([id number]), news editor FLACO LAMAR ([id number]) on 03/07/2022 11:11:32 AM Referred By: Confirmed By:OMAR DIAS MD
--- NOTE | 2022-03-06 07:47 | EDS_ITS ---
HPI History of Present Illness Chief Complaint: Shortness of Breath Narrative Narrative: Patient presents with hypoxia from the [facility]. He was recently diagnosed with COVID, he was found to be 70% on room air at the [facility]. He has MRDD and Down syndrome, he is nonverbal and I cannot get a history from him. No reported fevers. He was seen a few days ago and found to have a normal chest x-ray and saturation. He is normally not on oxygen. [facility] Medical History Anxiety and depression Bowel obstruction Cellulitis Convulsion DDD (degenerative disc disease) Dementia Down syndrome Dyslipidemia Hypophosphatemia Hypothyroid Nausea with vomiting, unspecified Obsessive compulsive disorder Porokeratosis Home Medications fluoxetine 20 mg tablet 20 mg PO DAILY mood 11/06/13 [History Last Taken 06/18/17] pravastatin 40 mg tablet 40 mg PO DAILY cholesterol 11/23/13 [History Last Taken 06/18/17] buspirone 5 mg tablet 10 tab PO QHS anxiety 04/18/17 [History Last Taken 06/18/17] buspirone 5 mg tablet 5 mg PO DAILY 01/09/18 [History Last Taken Unknown] multivitamin 1 ea PO DAILY SUPPLEMENT 01/09/18 [History Last Taken Unknown] omeprazole 20 mg capsule,delayed release 20 mg PO DAILY GERD 01/09/18 [History Last Taken Unknown] guaifenesin 600 mg tablet, extended release 12 hr 600 mg PO Q12H PRN Congestion 12/26/19 [History Last Taken Unknown] melatonin 3 mg capsule 3 mg PO QHS INSOMNIA 12/26/19 [History Last Taken 06/23/21] donepezil 10 mg tablet (Aricept) 10 mg PO QHS dementia 10/22/20 [History Last Taken Unknown] bisacodyl 10 mg rectal suppository 10 mg KS DAILY PRN Constipation 10/16/21 [History Last Taken Unknown] fluocinolone 0.01 % topical body oil 1 applic topical DAILY DRY SKIN 10/16/21 [History Last Taken Unknown] magnesium hydroxide 400 mg/5 mL oral suspension (Milk of Magnesia) 30 ml PO DAILY PRN Constipation 10/16/21 [History Last Taken Unknown] mineral oil 118 ml KS DAILY PRN Constipation 10/16/21 [History Last Taken Unknown] ondansetron 4 mg disintegrating tablet 4 mg PO Q6H PRN Nausea 10/16/21 [History Last Taken Unknown] levothyroxine 75 mcg tablet 75 mcg PO DAILY 12/10/21 [History Last Taken Unknown] acetaminophen 325 mg capsule 650 mg PO Q6H PRN PAIN/FEVER 03/04/22 [History Last Taken Unknown] aspirin 81 mg tablet 81 mg PO DAILY 03/04/22 [History Last Taken Unknown] levetiracetam 500 mg tablet (Keppra) 750 mg PO BID 03/04/22 [History Last Taken Unknown] Allergy/AdvReac Type Severity Reaction Status Date / Time cardboard AdvReac Rash Uncoded 03/04/22 13:09 Family History Father Heart disease Myocardial infarction Cancer Mother CVA (cerebral vascular accident) Carotid artery disease Surgical History History of hernia surgery Social History housing: other details: prison. Smoking Status: Never smoker alcohol intake: never substance use type: does not use ROS ROS ED Review of Systems ROS Unobtainable: due to mental condition and due to mental status EXAM Physical Exam Narrative Exam Narrative: Physical exam General: MRDD features, he is on a nonrebreather but he appears relatively comfortable Head: Normocephalic, Atraumatic Eyes: Conjunctiva not pale ENT: Slightly dry mucous membranes Neck: Supple, Nontender, No lymphadenopathy Cardiovascular: Regular rate, Regular rhythm, it is loud in the room but I cannot appreciate any murmur. Respiratory: Some coarse bilateral breath sounds but I do not hear any wheezing. Abdomen: Soft, he tends to withdraw somewhat when I palpate his abdomen. There are bowel sounds it is not distended. Back: Nontender, Normal Inspection. Negative for: CVA tenderness : No evidence of infection, he wears adult diapers. No obvious external genitalia abnormality or signs of infection. Extremities: Nontender, No edema Skin: Normal color, No rash Neurological: Alert, no gross focal deficits, MRDD features. He is nonverbal Const Vital Signs: 03/06/22 07:40 03/06/22 07:48 03/06/22 07:48 Temperature 98.6 F Temperature Source Temporal Pulse Rate 92 Respiratory Rate 18 Respiratory Effort Short of Breath Respiratory Depth Shallow Respiratory Pattern Tachypnea Blood Pressure 108/60 Blood Pressure Mean 76 Pulse Ox 93 Oxygen Delivery Method Non-Rebreather Non-Rebreather Non-Rebreather Oxygen Flow Rate (L/min) 15 15 15 03/06/22 09:03 Temperature Temperature Source Pulse Rate 90 Respiratory Rate 16 Respiratory Effort Respiratory Depth Respiratory Pattern Blood Pressure 127/78 H Blood Pressure Mean 94 Pulse Ox 93 Oxygen Delivery Method High Flow Oxygen Flow Rate (L/min) 10 MDM MDM MDM Narrative Medical decision making narrative: Patient is found to have multilobar pneumonia the CT shows a right upper lobe pneumonia also. He is treated with antibiotics he continues to be has hypoxic however he is on a high flow oxygen saturating at 93%. He will need admission. Lab Data Labs: Laboratory Results - last 24 hr 03/06/22 03/06/22 03/06/22 08:00 08:00 08:00 WBC 10.7 RBC 4.19 L Hgb 14.2 Hct 44.0 MCV 105.0 H MCH 33.9 H MCHC 32.3 RDW Std Deviation 56.9 H RDW Coeff of Hermann 14.6 Plt Count 203 MPV 10.4 Immature Gran % (Auto) 0.700 Neut % (Auto) 84.1 H Lymph % (Auto) 9.7 L Hyde % (Auto) 5.1 Eos % (Auto) 0.0 Baso % (Auto) 0.4 Absolute Neuts (auto) 9.0 H Absolute Lymphs (auto) 1.04 Nucleated RBC % 0 Differential Comment SCANNED PT 15.8 H INR 1.3 Sodium 153 H Potassium 3.6 Chloride 120 H Carbon Dioxide 26.0 Anion Gap 7 BUN 22 H Creatinine 1.23 Estim Creat Clear Calc 42.17 Est GFR (MDRD) Af Amer 76 Est GFR (MDRD) Non-Af 63 BUN/Creatinine Ratio 17.9 Glucose 102 Lactic Acid Calcium 8.2 L Total Bilirubin 0.30 AST 43 H ALT 54 Alkaline Phosphatase 96 Troponin I High Sens 17 B-Natriuretic Peptide Total Protein 7.3 Albumin 2.7 L Globulin 4.6 H Albumin/Globulin Ratio 0.6 L Urine Color Urine Clarity Urine pH Ur Specific [place] Urine Protein Urine Glucose (UA) Urine Ketones Urine Occult Blood Urine Nitrite Urine Bilirubin Urine Urobilinogen Ur Leukocyte Esterase Urine RBC Urine WBC Ur Squamous Epith Cells Urine Bacteria Urine Mucus 03/06/22 03/06/22 03/06/22 08:00 08:00 08:37 WBC RBC Hgb Hct MCV MCH MCHC RDW Std Deviation RDW Coeff of Hermann Plt Count MPV Immature Gran % (Auto) Neut % (Auto) Lymph % (Auto) [place] % (Auto) Eos % (Auto) Baso % (Auto) Absolute Neuts (auto) Absolute Lymphs (auto) Nucleated RBC % Differential Comment PT INR Sodium Potassium Chloride Carbon Dioxide Anion Gap BUN Creatinine Estim Creat Clear Calc Est GFR (MDRD) Af Amer Est GFR (MDRD) Non-Af BUN/Creatinine Ratio Glucose Lactic Acid 1.4 Calcium Total Bilirubin AST ALT Alkaline Phosphatase Troponin I High Sens B-Natriuretic Peptide 36.8 Total Protein Albumin Globulin Albumin/Globulin Ratio Urine Color Yellow Urine Clarity Sl. Cloudy Urine pH 5.0 Ur Specific [place] 1.025 Urine Protein 100 H Urine Glucose (UA) Normal Urine Ketones 5 H Urine Occult Blood 25 H Urine Nitrite Negative Urine Bilirubin Negative Urine Urobilinogen 1 H Ur Leukocyte Esterase Negative Urine RBC 0-5 SEEN Urine WBC 0 SEEN Ur Squamous Epith Cells 0 SEEN Urine Bacteria 1+ Urine Mucus 0 SEEN ABG Data ABG results: ABG 03/06/22 07:59 Specimen Type ART Sample Site R Radial pH 7.40 Bicarbonate Actual 27.7 H Total CO2 29 Base Excess 3 H O2 Saturation 98 O2 % 100 ABG pCO2 45.0 ABG pO2 111 H O2 Delivery Device NRB Radiography Diagnostic Testing: Clinical Impression(s) from Imaging Studies Chest X-Ray 03/06/22 08:10 IMPRESSION: New patchy infiltrates at the lung bases. Electronically Signed: Haile Cho MD at 8:39 EST , Chest x-ray interpreted by me shows right-sided infiltrate, radiologist show bilateral infiltrates. EKG Initial EKG: Comments: Sinus rhythm with a rate of 86. Normal KS and QTc intervals. No ischemic changes. Interpreted by emergency doctor. Critical Care Time Critical Care Time: Yes Critical care time (excluding procedures): 30-74 minutes and - (I attest that I spent 35 minutes of critical care time with this patient. Patient was quite hypoxic, developed pneumonia, he needed frequent monitoring, discussing with hospital doctors providing respiratory treatment and antibiotics.) Discharge Plan Triage Chief Complaint: Shortness of Breath ED Provider: Jeff Priest Dx/Rx/DC Orders Clinical Impression: Acute hypernatremia, Pneumonia, Hypoxia, Respiratory failure Prescriptions: No Action fluoxetine 20 MG tablet 20 mg PO DAILY Label Comments: mood pravastatin 40 MG tablet 40 mg PO DAILY Label Comments: cholesterol buspirone 5 MG tablet 10 tab PO QHS Label Comments: multivitamin 1 EACH tablet 1 ea PO DAILY buspirone 5 MG tablet 5 mg PO DAILY omeprazole 20 MG capsule 20 mg PO DAILY melatonin 3 MG capsule 3 mg PO QHS guaifenesin 600 MG tablet extended release 12hr 600 mg PO Q12H PRN (Reason: Congestion) donepezil [Aricept] 10 mg Tablet 10 mg PO QHS mineral oil Enema 118 ml KS DAILY PRN (Reason: Constipation) Rx Instructions: discard any unused portion magnesium hydroxide [Milk of Magnesia] 400 mg/5 mL Suspension 30 ml PO DAILY PRN (Reason: Constipation) bisacodyl 10 mg Suppository 10 mg KS DAILY PRN (Reason: Constipation) fluocinolone 0.01 % Oil 1 applic TOPICAL DAILY ondansetron 4 mg Tablet,Disintegrating 4 mg PO Q6H PRN (Reason: Nausea) levothyroxine 75 mcg tablet 75 mcg PO DAILY aspirin 81 mg Tablet 81 mg PO DAILY acetaminophen 325 mg Capsule 650 mg PO Q6H PRN (Reason: PAIN/FEVER) levetiracetam [Keppra] 500 mg tablet 750 mg PO BID Primary Care Provider: Jeff Herndon Referrals: Jeff Herndon MD [Primary Care Provider] - Disposition Disposition: Acute Care Hospital [facility]
[2022-03-06 08:05] LABS: Base Excess 3 mmol/L (-2 to +2); Bicarbonate 27.7 mmol/L (22-26); Blood Gas Specimen Type ART; FI02 100; O2 Delivery Device NRB; PO2 111 mmHG (75-100); SITE R Radial; SO2 98 % (95-99); Total Carbon Dioxide 29 mmol/L
[2022-03-06 08:09] LABS: Absolute Lymphocyte Count 1.04 X10^3/uL (0.83-4.51); Basophil# 0.04 X10^3/uL; Basophil% 0.4 % (0-1); Hemoglobin 14.2 g/dL (13.0-16.5); Lymphocyte # 1.04 X10^3/ul (0.83-4.51); Lymphocyte % 9.7 % (19-41); Mean Corp Hgb Conc 32.3 g/dL (32-36); Mean Corpuscular Hgb 33.9 pg (27.0-32.0); Mean Platelet Vol. 10.4 fl (6.2-12.0); Monocyte# 0.55 X10^3/uL; Monocyte% 5.1 % (0-10); NRBC Flagged by Analyzer 0 % (0-5); Neutrophil % 84.1 % (47-70); POSITIVE MORPHOLOGY YES; Platelet Count 203 K/mm3 (150-450); RBC Distribution Width CV 14.6 % (11.6-14.6); RBC Distribution Width SD 56.9 fl (35.1-43.9); Red Blood Count 4.19 M/mm3 (4.6-6.2); White Blood Count 10.7 K/mm3 (4.4-11.0)
--- NOTE | 2022-03-06 08:10 | RAD_ITS ---
STUDY: X-RAY CHEST REASON FOR EXAM: Male, 67 years old. Shortness of breath. Positive. TECHNIQUE: Single AP portable view of the chest. COMPARISON: Comparison is made with prior study dated 03/04/2022. FINDINGS: EKG electrodes are seen. Patchy infiltrates are seen in the medial aspect of both the right lower old and left lower lobe. There is no demonstrated pleural abnormality. Normal size heart. Normal mediastinum and andrea. Normal visualized pulmonary arteries. Normal visualized aortic arch and descending thoracic aorta. There are diffuse degenerative changes of the visualized thoracic spine. Dextroscoliosis of the thoracic spine and levoscoliosis of the lower thoracic and upper lumbar spine. Normal visualized ribs, clavicles, and shoulders. There is no demonstrated abnormality of the visualized soft tissue structures of the upper abdomen. RAD/Chest 1 View (Portable) IMPRESSION: New patchy infiltrates at the lung bases. Electronically Signed: Haile Cho MD at 8:39 EST ,
[2022-03-06 08:17] LABS: Differential Indicated SCAN CRITERIA MET
[2022-03-06 08:32] LABS: ALB/GLOB Ratio 0.6 RATIO (0.9-2.4); AST(SGOT) 43 U/L (15-37); Alanine Aminotransfer ALT/SGPT 54 U/L (16-61); Albumin, Serum 2.7 g/dL (3.2-5.0); Alkaline Phosphatase 96 U/L (45-117); Anion Gap 7 (5-15); BUN 22 mg/dL (7-18); BUN/Creat Ratio 17.9 RATIO (10-20); Calcium,Total 8.2 mg/dL (8.5-10.1); Chloride 120 mmol/L (98-107); Creatinine, Serum 1.23 mg/dL (0.70-1.30); EST Glomerular Filtration Rate 63 mL/min (>60); Est Glom Filt Rate - Afr Amer 76 mL/min (>60); Estimated Creatinine Clearance 42.17 ml/min; Globulin 4.6 g/dL (2.2-4.2); Glucose 102 mg/dL (74-106); Potassium 3.6 mmol/L (3.5-5.1); Protein, Total 7.3 g/dL (6.4-8.2); Sodium Level 153 mmol/L (136-145); Troponin-I HS 17 pg/mL (3.0-78.0)
--- NOTE | 2022-03-06 08:37 | CT_ITS ---
STUDY: CTA CHEST REASON FOR EXAM: Male, 67 years old. Pe RADIATION DOSAGE (If Supplied By Facility): CTDIvol = ( 12.34 ) mGy, DLP = ( 346.25 ) mGycm TECHNIQUE: The examination was performed with the intravenous administration of IV 75mL Isovue-370. Post-processing of the angiographic images was performed, with multiplanar reformation and 3D reconstruction. Individualized dose optimization techniques were used for this CT. COMPARISON: None. FINDINGS: Normal enhancement of the main pulmonary artery and right and left pulmonary arteries. Normal enhancement of the bilateral peripheral pulmonary arteries. There is no demonstrated pulmonary embolism. Normal thoracic aorta and visualized great vessels. There is no demonstrated aortic dissection. Normal heart and pericardium. Normal mediastinum. Normal hilar regions. Normal visualized trachea and bronchi. The lungs are well expanded. Mild degree of increased markings in the superior segment of the left lower lobe suggestive of early infiltrate. Soft tissue prominence in the right hilum and right infrahilar region with areas of bronchiectasis and infiltration. Increased markings at the lung bases suggestive of either atelectasis and/or early infiltrate. There is elevation of the left hemidiaphragm. Minimal left pleural effusion. Normal chest wall structures. There are degenerative changes of thoracic spine. Levoscoliosis. There is a 5.1 cm x 4.1 cm cyst in the upper pole of the left kidney. There is a 1.6 m cyst in the upper pole of the right kidney. CT/CTA Chest W/WO Contrast IMPRESSION: Increased markings at the lung bases suggestive of bibasilar atelectasis and/or early infiltrates as well as in the superior segment of the left lower lobe and right lower lobe. Prominent soft tissue density in the right hilum and right infrahilar regions with volume loss. This may represent bronchiectasis. Follow-up is recommended. Electronically Signed: Haile Cho MD at 9:51 EST ,
[2022-03-06 08:42] LABS: Lactic Acid 1.4 mmol/L (0.4-1.9)
[2022-03-06 08:44] LABS: Mucous, Urine 0 SEEN /hpf (<or=2+); Squamous Epithelial Cells - UA 0 SEEN /hpf (0-5); White Blood Cells 0 SEEN /hpf (0-5)
[2022-03-06 08:51] LABS: BNP,B-Type NATRIURETIC PEPTIDE 36.8 pg/mL (0-100)
[2022-03-06 08:55] LABS: Color, Urine Yellow (Yellow); Glucose, Dipstick Normal (Normal); Ketone-Dipstick 5 mg/dl (Negative); Leukocyte Esterase-Dipstick Negative /ul (Negative); Nitrite-Dipstick Negative (Negative); Occult Blood-Urine 25 /ul (Negative); Protein-Dipstick 100 mg/dl (Negative); Specific Gravity, Urine 1.025 (1.002-1.030); Urine Bilirubin Dipstick Negative (Negative); Urine Clarity Sl. Cloudy (Clear); Urine Urobilinogen 1 mg/dl (Normal)
[2022-03-06 08:56] LABS: Differential Comment SCANNED; International Normalized Ratio 1.3; Prothrombin Time (Protime)PT. 15.8 SECONDS (11.7-14.9)
[2022-03-06 09:04] LABS: Bacteria 1+ /hpf (None Seen); Red Blood Cells-Urine 0-5 SEEN /hpf (0-5)
--- NOTE | 2022-03-06 09:33 | NURSING ---
117 (ICU) [facility] ACUTE RESP FAILURE
[2022-03-06] MEDS: Ceftriaxone 1 GM/50 ML BAG IV (09:35)
--- NOTE | 2022-03-06 10:15 | HP.PCM.HOS_ITS ---
HPI - General General Date of Admission: 03/06/22 Date of Service: 03/06/22 Chief Complaint: Hypoxia HPI Narrative PAULA YUSUF, is a 67 M who presents with hypoxia. Patient has history of MRDD/Down's syndrome. He is resident in the [facility]. He was recently diagnosed with COVID-19 infection. He was noted to be hypoxic with oxygen sat of 66% on room air. This improved to 86% on 4 L. Patient did require nonrebreather max at 15 L in the emergency room. He had a low-grade fever. Patient is nonverbal, unable to give any additional history. Vitals in the ED showed blood pressure of 108/60, temperature 98.6 F, heart rate 92, respiratory 18, oxygen sat was 93% on nonrebreather max. Chest x-ray shows new patchy infiltrates at the lung bases. CT of the chest showed increased markings at the lung bases suggestive of bibasilar atelectasis and or early infiltrate as well as in the superior segment of the left lower lobe and right lower lobe. Patient did have evidence of bronchiectasis in the right hilum and right inferior hilar regions. [facility] Medical History Anxiety and depression Bowel obstruction Cellulitis Convulsion DDD (degenerative disc disease) Dementia Down syndrome Dyslipidemia Hypophosphatemia Hypothyroid Nausea with vomiting, unspecified Obsessive compulsive disorder Porokeratosis Home Medications fluoxetine 20 mg tablet 20 mg PO DAILY mood 11/06/13 [History Last Taken 03/05/22] pravastatin 40 mg tablet 40 mg PO DAILY cholesterol 11/23/13 [History Last Taken 03/04/22] buspirone 5 mg tablet 10 tab PO QHS anxiety 04/18/17 [History Last Taken 03/04/22] buspirone 5 mg tablet 5 mg PO DAILY ANXIETY 01/09/18 [History Last Taken 03/05/22] multivitamin 1 ea PO DAILY SUPPLEMENT 01/09/18 [History Last Taken 03/05/22] omeprazole 20 mg capsule,delayed release 20 mg PO DAILY GERD 01/09/18 [History Last Taken 03/06/22] melatonin 3 mg capsule 3 mg PO QHS INSOMNIA 12/26/19 [History Last Taken 03/04/22] donepezil 10 mg tablet (Aricept) 10 mg PO QHS dementia 10/22/20 [History Last Taken 03/04/22] fluocinolone 0.01 % topical body oil 1 applic topical DAILY DRY SKIN 10/16/21 [History Last Taken 03/05/22] levothyroxine 75 mcg tablet 75 mcg PO DAILY THYROID 12/10/21 [History Last Taken 03/06/22] acetaminophen 325 mg capsule 650 mg PO Q6H PRN PAIN/FEVER 03/04/22 [History Last Taken 03/06/22] aspirin 81 mg chewable tablet 81 mg PO DAILY@0800 BLOOD THINNER 03/06/22 [History Last Taken 03/05/22] levetiracetam 750 mg tablet 750 mg PO BID SEIZURES 03/06/22 [History Last Taken 03/05/22] Family History Father Heart disease Myocardial infarction Cancer Mother CVA (cerebral vascular accident) Carotid artery disease Surgical History History of hernia surgery Social History housing: other details: nursing home. Smoking Status: Never smoker alcohol intake: never substance use type: does not use ROS Review of Systems ROS Unobtainable: due to encephalopathy and due to mental condition Vital Signs Vital Signs Vital Signs: 03/06/22 07:40 03/06/22 07:48 03/06/22 07:48 Temperature 98.6 F Temperature Source Temporal Pulse Rate 92 Respiratory Rate 18 Respiratory Effort Short of Breath Respiratory Depth Shallow Respiratory Pattern Tachypnea Blood Pressure 108/60 Blood Pressure Mean 76 Pulse Ox 93 Oxygen Delivery Method Non-Rebreather Non-Rebreather Non-Rebreather Oxygen Flow Rate (L/min) 15 15 15 03/06/22 09:03 03/06/22 09:54 Temperature 98.6 F Temperature Source Temporal Pulse Rate 90 90 Respiratory Rate 16 16 Respiratory Effort Respiratory Depth Respiratory Pattern Blood Pressure 127/78 H 127/78 H Blood Pressure Mean 94 94 Pulse Ox 93 93 Oxygen Delivery Method High Flow High Flow Oxygen Flow Rate (L/min) 10 Weight Weight: 49.8 kg Body Mass Index (BMI) 20.7 Physical Exam Narrative Physical exam: General: Alert, Oriented x3, Cooperative, on 9L oxygen, moderately dehydrated HEENT: Atraumatic Oral:Dry oral Mucosa Neck: Supple Lungs:Diminished to auscultation Cardiovascular: HS I+II, regular, no murmurs Abdomen: Bowel Sounds Present, Soft, Non Tender Extremities: No edema Skin: No rashes, No breakdown Neurological: Grossly intact Psych/Mental Status: Appropriate Results Lab / Micro Data Result Diagrams: 03/06/22 08:00 03/06/22 08:00 Labs: Laboratory Results - last 24 hr 03/06/22 08:00: WBC 10.7, RBC 4.19 L, Hgb 14.2, Hct 44.0, MCV 105.0 H, MCH 33.9 H, MCHC 32.3, RDW Std Deviation 56.9 H, RDW Coeff of Hermann 14.6, Plt Count 203, MPV 10.4, Immature Gran % (Auto) 0.700, Neut % (Auto) 84.1 H, Lymph % (Auto) 9.7 L, [place] % (Auto) 5.1, Eos % (Auto) 0.0, Baso % (Auto) 0.4, Absolute Neuts (auto) 9.0 H, Absolute Lymphs (auto) 1.04, Nucleated RBC % 0, Differential Comment SCANNED 03/06/22 08:00: PT 15.8 H, INR 1.3 03/06/22 08:00: Sodium 153 H, Potassium 3.6, Chloride 120 H, Carbon Dioxide 26.0, Anion Gap 7, BUN 22 H, Creatinine 1.23, Estim Creat Clear Calc 42.17, Est GFR (MDRD) Af Amer 76, Est GFR (MDRD) Non-Af 63, BUN/Creatinine Ratio 17.9, Glucose 102, Calcium 8.2 L, Total Bilirubin 0.30, AST 43 H, ALT 54, Alkaline Phosphatase 96, Troponin I High Sens 17, Total Protein 7.3, Albumin 2.7 L, Globulin 4.6 H, Albumin/Globulin Ratio 0.6 L 03/06/22 08:00: Lactic Acid 1.4 03/06/22 08:00: B-Natriuretic Peptide 36.8 03/06/22 08:37: Urine Color Yellow, Urine Clarity Sl. Cloudy, Urine pH 5.0, Ur Specific [place] 1.025, Urine Protein 100 H, Urine Glucose (UA) Normal, Urine Ketones 5 H, Urine Occult Blood 25 H, Urine Nitrite Negative, Urine Bilirubin Negative, Urine Urobilinogen 1 H, Ur Leukocyte Esterase Negative, Urine RBC 0-5 SEEN, Urine WBC 0 SEEN, Ur Squamous Epith Cells 0 SEEN, Urine Bacteria 1+, Urine Mucus 0 SEEN ABG Data ABG results: ABG 03/06/22 07:59 Specimen Type ART Sample Site R Radial pH 7.40 Bicarbonate Actual 27.7 H Total CO2 29 Base Excess 3 H O2 Saturation 98 O2 % 100 ABG pCO2 45.0 ABG pO2 111 H O2 Delivery Device NRB Radiology Impression Chest X-Ray 03/06/22 08:10 IMPRESSION: New patchy infiltrates at the lung bases. Electronically Signed: Haile Cho MD at 8:39 EST , Chest CTA 03/06/22 08:37 IMPRESSION: Increased markings at the lung bases suggestive of bibasilar atelectasis and/or early infiltrates as well as in the superior segment of the left lower lobe and right lower lobe. Prominent soft tissue density in the right hilum and right infrahilar regions with volume loss. This may represent bronchiectasis. Follow-up is recommended. Electronically Signed: Haile Cho MD at 9:51 EST , Assessment & Plan Assessment/Plan (1) Acute hypernatremia: (2) Respiratory failure: PLAN: Plan 1.Acute hypoxic respiratory failure secondary to acute COVID-19 infection Recently diagnosed with [facility] infection in the [facility] Presents to ED on nonrebreather mask Chest x-ray and CTA of the chest shows patchy infiltrates Continue on oxygen, dexamethasone, Remdesivir 2. Hypernatremia secondary to dehydration Will start on D5 water. Trend labs in am 3. Seizure disorder, continue on Keppra 4. Hypothyroidism, continue Synthroid 5. MRDD/Down syndrome/dementia/anxiety disorder Continue on BuSpar, Aricept, fluoxetine 6. Hyperlipidemia, continue statin 7. GERD, continue PPI 8. DVT prophylaxis?Lovenox subcu 9. CODE STATUS?DNR CCA?on [facility] records Charges/Coding Visit Charges Inpatient E&M: 36445 Init Hosp L3
[2022-03-06] MEDS: dexAMETHasone 10 MG/ML Vial 6 MG IV (11:36)
--- NOTE | 2022-03-06 14:12 | NURSING ---
Spoke with Ann at the [facility] to inquire about symptom onset. Ann stated that on 03/04 it was documented that the nurses spoke with their doctor about an order for paxlovid.
--- NOTE | 2022-03-06 14:13 | CON.PCM.CC_ITS ---
Assessment & Plan Assessment/Plan (1) Respiratory failure: (2) COVID-19: (3) Debility: PLAN: Plan RECOMMENDATIONS: 1. Transition to Airvo to maintain saturations 2. Clarify CODE STATUS with mcfp/POA 3. Wean supplemental oxygen as tolerated 4. Gentle hydration given hyponatremia 5. Continue Remdesivir (03/10/2022) and Decadron (03/16/2022) IMPRESSIONS: 1. Acute hypoxic respiratory failure secondary to COVID-19/bronchiectasis Patient with significant hypoxia at this time. Patient does have groundglass opacities more consistent with a viral etiology. However, patient also has right lower lobe bronchiectasis and would be at risk for a superimposed bacterial infection. Some concern for Pseudomonas, so will transition to Zosyn therapy for antibiotics. Patient will be initiated on remdesivir and Decadron. By process of illumination, patient will need to have paxlovid within 5 days making onset less than 10 days previously. We will have to be very careful treating patient's hypernatremia with free water as this does increase the risk of hypoxic respiratory failure. Patient will be transferred over to Airvo to help control hypoxia. Unclear if patient will tolerate BiPAP for an extended period of time. Need to discuss with POA on whether intubation is an option 2. Hypernatremia/hyperchloremia secondary to dehydration Patient placed on D5W. We will have to watch fluid status closely. Increase free water does increase the risk of worsening problem #1. 3. Debility/seizure disorder/MRDD/Down's Complicates care, management, recovery and prognosis. Need to discuss with ECF/POA on CODE STATUS. Okay to continue baseline seizure medications. HPI Consult Data Date of Consult: 03/06/22 HPI Narrative Reason for Consultation: Hypoxic respiratory failure HPI Narrative: PAULA YUSUF is a 67 M, with past medical history listed below, who presents to [facility] 03[facility]2022 secondary to hypoxia while at the [facility]. Patient was reportedly recently diagnosed with COVID-19, but exact details are unclear at this time. Patient reportedly was found to be 70% on room air, so was transported to ER for further evaluation. Patient does have a history of MRDD and Down syndrome, so additional information cannot be obtained. Patient reportedly had received a chest x-ray a couple days prior that was read within normal limits. Patient is not normally on oxygen therapy and reportedly previously had good saturations. On arrival to the ED, patient was afebrile, normotensive and not tachycardic. Patient was requiring a nonrebreather to maintain a saturation of 93%. Laboratory data showed a white blood cell count of 10.7, hemoglobin of 14.2 and platelets of 203. Coagulation studies were within normal limits. Chemistries were remarkable for a sodium of 153, chloride of 120 and a bicarbonate of 26. Creatinine was slightly elevated at 1.23 and liver enzymes were relatively normal. Lactic acid was within normal limits, along with BNP. UA was relatively unremarkable. ABG showed adequate ventilation with a compensated hypercarbic respiratory failure, but an increased AA gradient. Chest x-ray did show patchy infiltrates at the lung bases. Patient subsequently had a CT of the chest showing right lower lobe bronchiectasis. Patient was subsequently admitted to the PCU for further evaluation. On my evaluation, patient was nonverbal and unable to provide any additional information. Patient's ECF was called by nursing and patient reportedly had been requested to receive Paxlovid on 03/04/2022, but did not receive secondary to its inability to be crushed. Exact onset of symptoms were are not clear. Patient was not able to provide any information. [facility] Medical History Anxiety and depression Bowel obstruction Cellulitis Convulsion DDD (degenerative disc disease) Dementia Down syndrome Dyslipidemia Hypophosphatemia Hypothyroid Nausea with vomiting, unspecified Obsessive compulsive disorder Porokeratosis Home Medications fluoxetine 20 mg tablet 20 mg PO DAILY mood 11/06/13 [History Last Taken 03/05/22] pravastatin 40 mg tablet 40 mg PO DAILY cholesterol 11/23/13 [History Last Taken 03/04/22] buspirone 5 mg tablet 10 tab PO QHS anxiety 04/18/17 [History Last Taken 03/04/22] buspirone 5 mg tablet 5 mg PO DAILY ANXIETY 01/09/18 [History Last Taken 11/17] multivitamin 1 ea PO DAILY SUPPLEMENT 01/09/18 [History Last Taken 03/05/22] omeprazole 20 mg capsule,delayed release 20 mg PO DAILY GERD 01/09/18 [History Last Taken 03/06/22] melatonin 3 mg capsule 3 mg PO QHS INSOMNIA 12/26/19 [History Last Taken 03/04/22] donepezil 10 mg tablet (Aricept) 10 mg PO QHS dementia 10/22/20 [History Last Taken 03/04/22] fluocinolone 0.01 % topical body oil 1 applic topical DAILY DRY SKIN 10/16/21 [History Last Taken 03/05/22] levothyroxine 75 mcg tablet 75 mcg PO DAILY THYROID 12/10/21 [History Last Taken 03/06/22] acetaminophen 325 mg capsule 650 mg PO Q6H PRN PAIN/FEVER 03/04/22 [History Last Taken 03/06/22] aspirin 81 mg chewable tablet 81 mg PO DAILY@0800 BLOOD THINNER 03/06/22 [History Last Taken 03/05/22] levetiracetam 750 mg tablet 750 mg PO BID SEIZURES 03/06/22 [History Last Taken 03/05/22] Family History Father Heart disease Myocardial infarction Cancer Mother CVA (cerebral vascular accident) Carotid artery disease Surgical History History of hernia surgery Social History housing: other details: jail. Smoking Status: Never smoker alcohol intake: never substance use type: does not use ROS Review of Systems ROS Unobtainable: due to mental status Physical Exam Const alert General Appearance: in distress Positive for moderate (Moaning frequently), ill appearing and frail HEENT normocephalic and head/scalp atraumatic HEENT Narrative: Some temporal wasting noted. Dry mucous membranes noted Eyes PERRL and no scleral icterus Neck full ROM and no lymphadenopathy Resp Effort and Inspection: tachypneic; Negative for actively coughing Auscultation: diminished lung sounds; Negative for rales, rhonchi or wheezes Cardio regular rate, regular rhythm, S1 normal heart sound, S2 normal heart sound, no murmurs, no rub and no gallops GI normal to inspection, nondistended, normoactive bowel sounds Extremity no clubbing, cyanosis or edema Skin no rashes or lesions noted Neuro moves all extremities Psych Activity / Motor Behavior: restless Mood & Affect: anxious Lab / Micro Data Attestation: I reviewed the patient's lab results. Result Diagrams: 03/06/22 08:00 03/06/22 08:00 Labs: Laboratory Results - last 24 hr 03/06/22 08:00: WBC 10.7, RBC 4.19 L, Hgb 14.2, Hct 44.0, MCV 105.0 H, MCH 33.9 H, MCHC 32.3, RDW Std Deviation 56.9 H, RDW Coeff of Hermann 14.6, Plt Count 203, MPV 10.4, Immature Gran % (Auto) 0.700, Neut % (Auto) 84.1 H, Lymph % (Auto) 9.7 L, [place] % (Auto) 5.1, Eos % (Auto) 0.0, Baso % (Auto) 0.4, Absolute Neuts (auto) 9.0 H, Absolute Lymphs (auto) 1.04, Nucleated RBC % 0, Differential Comment SCANNED 03/06/22 08:00: PT 15.8 H, INR 1.3 03/06/22 08:00: Sodium 153 H, Potassium 3.6, Chloride 120 H, Carbon Dioxide 26.0, Anion Gap 7, BUN 22 H, Creatinine 1.23, Estim Creat Clear Calc 42.17, Est GFR (MDRD) Af Amer 76, Est GFR (MDRD) Non-Af 63, BUN/Creatinine Ratio 17.9, Glucose 102, Calcium 8.2 L, Total Bilirubin 0.30, AST 43 H, ALT 54, Alkaline Phosphatase 96, Troponin I High Sens 17, Total Protein 7.3, Albumin 2.7 L, Globulin 4.6 H, Albumin/Globulin Ratio 0.6 L 03/06/22 08:00: Lactic Acid 1.4 03/06/22 08:00: B-Natriuretic Peptide 36.8 03/06/22 08:37: Urine Color Yellow, Urine Clarity Sl. Cloudy, Urine pH 5.0, Ur Specific [place] 1.025, Urine Protein 100 H, Urine Glucose (UA) Normal, Urine K etones 5 H, Urine Occult Blood 25 H, Urine Nitrite Negative, Urine Bilirubin Negative, Urine Urobilinogen 1 H, Ur Leukocyte Esterase Negative, Urine RBC 0-5 SEEN, Urine WBC 0 SEEN, Ur Squamous Epith Cells 0 SEEN, Urine Bacteria 1+, Urine Mucus 0 SEEN ABG Data ABG results: ABG 03/06/22 07:59 Specimen Type ART Sample Site R Radial pH 7.40 Bicarbonate Actual 27.7 H Total CO2 29 Base Excess 3 H O2 Saturation 98 O2 % 100 ABG pCO2 45.0 ABG pO2 111 H O2 Delivery Device NRB Attestation: I personally reviewed and interpreted this ABG as follows: (See HPI) Radiology Impression Chest X-Ray 03/06/22 08:10 IMPRESSION: New patchy infiltrates at the lung bases. Electronically Signed: Haile Cho MD at 8:39 EST , Chest CTA 03/06/22 08:37 IMPRESSION: Increased markings at the lung bases suggestive of bibasilar atelectasis and/or early infiltrates as well as in the superior segment of the left lower lobe and right lower lobe. Prominent soft tissue density in the right hilum and right infrahilar regions with volume loss. This may represent bronchiectasis. Follow-up is recommended. Electronically Signed: Haile Cho MD at 9:51 EST , Charges/Coding Visit Charges Inpatient E&M: 25324 Init Hosp L3
--- NOTE | 2022-03-06 15:05 | NURSING ---
This RN is taking over care at this time.
[2022-03-06] MEDS: Acetaminophen 650 MG Suppository RC (15:50)
[2022-03-07] VITALS (24 sets, daily range): BP systolic 81–155; BP diastolic 53–85; PULSE 66–120; RESP 12–25; TEMP 35.9–37.3; O2SAT 90–100
[2022-03-07 05:27] LABS: Absolute Lymphocyte Count 0.77 X10^3/uL (0.83-4.51); Absolute Neutrophil Count 9.5 X10^3/uL (2.0-7.7); Basophil# 0.01 X10^3/uL; Basophil% 0.1 % (0-1); Hematocrit 38.1 % (40-54); Hemoglobin 12.4 g/dL (13.0-16.5); Lymphocyte # 0.77 X10^3/ul (0.83-4.51); Lymphocyte % 7.1 % (19-41); Mean Corp Hgb Conc 32.5 g/dL (32-36); Mean Corpuscular Hgb 34.2 pg (27.0-32.0); Mean Platelet Vol. 10.8 fl (6.2-12.0); Monocyte# 0.47 X10^3/uL; Monocyte% 4.3 % (0-10); NRBC Flagged by Analyzer 0 % (0-5); Neutrophil # 9.49 X10^3/uL (2.7-7.7); Neutrophil % 87.8 % (47-70); Platelet Count 181 K/mm3 (150-450); RBC Distribution Width CV 14.4 % (11.6-14.6); Red Blood Count 3.63 M/mm3 (4.6-6.2); White Blood Count 10.8 K/mm3 (4.4-11.0)
[2022-03-07 05:54] LABS: ALB/GLOB Ratio 0.6 RATIO (0.9-2.4); AST(SGOT) 45 U/L (15-37); Alanine Aminotransfer ALT/SGPT 50 U/L (16-61); Albumin, Serum 2.4 g/dL (3.2-5.0); Alkaline Phosphatase 84 U/L (45-117); Anion Gap 5 (5-15); BUN 26 mg/dL (7-18); BUN/Creat Ratio 22.2 RATIO (10-20); Calcium,Total 8.1 mg/dL (8.5-10.1); Chloride 118 mmol/L (98-107); Creatinine, Serum 1.17 mg/dL (0.70-1.30); EST Glomerular Filtration Rate 67 mL/min (>60); Est Glom Filt Rate - Afr Amer 80 mL/min (>60); Estimated Creatinine Clearance 41.04 ml/min; Globulin 4.3 g/dL (2.2-4.2); Glucose 120 mg/dL (74-106); Potassium 3.4 mmol/L (3.5-5.1); Protein, Total 6.7 g/dL (6.4-8.2); Sodium Level 150 mmol/L (136-145)
[2022-03-07 08:16] LABS: Bedside Glucose 150 mg/dL (74-106)
[2022-03-07] MEDS: Enoxaparin 40 MG/0.4 ML Syringe SC (08:54)
[2022-03-07] MEDS: 0.9% Saline Lock 10 ML Syringe IV ×2 (08:54→23:02)
[2022-03-07] MEDS: dexAMETHasone 10 MG/ML Vial 6 MG IV (08:54)
--- NOTE | 2022-03-07 08:59 | NURSING ---
Per ISOBUTYLENE OPERATOR CHIEF when feeding pt, he was pocketing food in his mouth and not following commands to swallow. ISOBUTYLENE OPERATOR CHIEF performed oral care and removed food from mouth. Upon this event this nurse does not feel safe giving oral medications at this time until speech therapy evals pt for proper oral diet and regimen
--- NOTE | 2022-03-07 10:06 | CM.UR ---
Discharge Dividing Machine Operator Helper This proposal lead writer sent and update on patient to Marley at [facility]. Gerardo ADRIAN Editing Intern
--- NOTE | 2022-03-07 10:10 | PCM.PN.INT ---
Assessment & Plan Assessment/Plan (1) Respiratory failure: (2) COVID-19: (3) Debility: PLAN: Plan RECOMMENDATIONS: 1. Continue Airvo to maintain saturations 2. Given goals of therapy, would not recommend BiPAP as this will be likely poorly tolerated 3. Wean supplemental oxygen as tolerated 4. Gentle hydration given hyponatremia 5. Continue Remdesivir (03/10/2022) and Decadron (03/16/2022) IMPRESSIONS: 1. Acute hypoxic respiratory failure secondary to COVID-19/bronchiectasis Patient with significant hypoxia at this time. Patient does have groundglass opacities more consistent with a viral etiology. However, patient also has right lower lobe bronchiectasis and would be at risk for a superimposed bacterial infection. Some concern for Pseudomonas, so will transition to Zosyn therapy for antibiotics. Patient has been initiated on remdesivir and Decadron. By process of elimination, patient will need to have paxlovid within 5 days making onset less than 10 days previously. We will have to be very careful treating patient's hypernatremia with free water as this does increase the risk of hypoxic respiratory failure. Patient transferred over to Airvo to help control hypoxia and appears to be tolerating this reasonably well. Unclear if patient will tolerate BiPAP for an extended period of time. Especially given goals of therapy, do not believe that BiPAP would be appropriate. If patient desaturates on Airvo, comfort measures with opiates and anxiolytics would likely be the most appropriate action. 2. Hypernatremia/hyperchloremia secondary to dehydration Patient placed on D5W. We will have to watch fluid status closely. Increase free water does increase the risk of worsening problem #1. 3. Debility/seizure disorder/MRDD/Down's Complicates care, management, recovery and prognosis. Need to discuss with ECF/POA on CODE STATUS. Okay to continue baseline seizure medications. Subjective Subjective Patient with increasing FiO2 requirements overnight. Patient appears to be tolerating Airvo well despite increased FiO2 requirements. There was noted a DNR Comfort Care order in residential documentation. Hospitalist did confirm with POA that this is the goal. Objective Data Objective Data Vital Signs: Vital Signs Temp Pulse Resp BP Pulse Ox O2 Del Method O2 Flow Rate 35.9 C L 68 20 H 103/67 96 Airvo 50 03/07/22 08:59 03/07/22 08:59 11/09/22 08:59 03/07/22 08:59 03/07/22 08:59 03/07/22 08:59 03/06/22 18:26 FiO2 70 03/07/22 07:25 Oxygen Flow Rate (L/min) 50 Oxygen Delivery Method Airvo Weight: 46.1 kg Body Mass Index (BMI) 18.7 Intake & Output: Intake and Output for Last 24 Hours 03/05/22 03/06/22 03/07/22 23:59 23:59 23:59 Intake Total 981.0 / 981.0 939 / 939 Output Total 200 / 450 550 / 550 Balance 781.0 / 531.0 389 / 389 Lab / Micro Data Attestation: I reviewed the patient's lab results. Result Diagrams: 03/07/22 05:06 03/07/22 05:06 Labs: Laboratory Results - last 24 hr 03/06/22 15:32: POC Glucose 150 H 03/07/22 05:06: WBC 10.8, RBC 3.63 L, Hgb 12.4 L, Hct 38.1 L, MCV 105.0 H, MCH 34.2 H, MCHC 32.5, RDW Std Deviation 56.0 H, RDW Coeff of Hermann 14.4, Plt Count 181, MPV 10.8, Immature Gran % (Auto) 0.700, Neut % (Auto) 87.8 H, Lymph % (Auto) 7.1 L, [place] % (Auto) 4.3, Eos % (Auto) 0.0, Baso % (Auto) 0.1, Absolute Neuts (auto) 9.5 H, Absolute Lymphs (auto) 0.77 L, Nucleated RBC % 0 03/07/22 05:06: Sodium 150 H, Potassium 3.4 L, Chloride 118 H, Carbon Dioxide 27.0, Anion Gap 5, BUN 26 H, Creatinine 1.17, Estim Creat Clear Calc 41.04, Est GFR (MDRD) Af Amer 80, Est GFR (MDRD) Non-Af 67, BUN/Creatinine Ratio 22.2 H, Glucose 120 H, Calcium 8.1 L, Total Bilirubin 0.30, AST 45 H, ALT 50, Alkaline Phosphatase 84, Total Protein 6.7, Albumin 2.4 L, Globulin 4.3 H, Albumin/Globulin Ratio 0.6 L Micro: Microbiology 03/06/22 08:00 Blood Culture (Wb) - Right Forearm Bacteria Detection (PCR) - Preliminary Coag Negative Staph 03/06/22 08:00 Blood Culture (Wb) - Right Forearm Blood Culture - Preliminary Physical Exam Const alert General Appearance: in distress Positive for mild, ill appearing and frail HEENT normocephalic and head/scalp atraumatic Eyes PERRL and no scleral icterus Neck full ROM and no lymphadenopathy Resp Effort and Inspection: tachypneic; Negative for actively coughing Auscultation: diminished lung sounds; Negative for rales, rhonchi or wheezes Cardio regular rate, regular rhythm, S1 normal heart sound, S2 normal heart sound, no murmurs, no rub and no gallops GI normal to inspection, nondistended, normoactive bowel sounds Extremity no clubbing, cyanosis or edema Skin no rashes or lesions noted Neuro moves all extremities Psych Activity / Motor Behavior: restless Mood & Affect: anxious Charges/Coding Visit Charges Inpatient E&M: 64839 Subs Hosp L3
[2022-03-07] MEDS: Potassium Chloride 10mEq/100mL 10 MEQ/100 ML IV.SOLN. 100 MEQ IV BOLUS ×2 (10:48→12:43)
--- NOTE | 2022-03-07 11:26 | CASEMGMT ---
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 Updates have been sent. Erlinda Villaseñor RIVET PASSER DANY
--- NOTE | 2022-03-07 15:51 | CASEMGMT ---
Physician spoke with guardian about Hospice and she is in agreement. SW called patient's guardian Renetta. SW explained how the process works and she was in agreement. SW called Josephine at [facility] regarding referral. SW let her know that physician and guardian would like patient to go to the inpatient unit. SW faxed information to Hospice. Plan: Inpatient Hospice pending acceptance. Erlinda Villaseñor IMPLEMENTATION PROJECT MANAGERAimee SAENZ
[2022-03-07] MEDS: Morphine 2 MG/ML Syringe 0.5 MG IV (15:55)
[2022-03-07] MEDS: Acetaminophen 650 MG Suppository RC (15:55)
--- NOTE | 2022-03-07 18:04 | PCM.PN.HOSP ---
Subjective Subjective Follow-up on acute hypoxic respiratory failure/COVID-19 pneumonia/aspiration pneumonia: Patient was seen and examined. Overnight, patient's oxygen requirements have worsened. He is now almost maxed out on Airvo -60 L, 93%. Discussed in detail with his legal POA, Hospice was consulted. Patient was reported choking. He is also off IVF on account of worsening respiratory status. Objective Data Objective Data Vital Signs: Vital Signs Temp Pulse Resp BP Pulse Ox O2 Del Method O2 Flow Rate 99.1 F 76 22 H 143/73 H 94 Airvo 60 03/07/22 15:00 03/07/22 16:26 03/07/22 16:26 03/07/22 15:00 03/07/22 16:26 03/07/22 15:00 03/07/22 14:15 FiO2 80 03/07/22 16:26 Oxygen Flow Rate (L/min) 60 Oxygen Delivery Method Airvo Weight: 46.1 kg Body Mass Index (BMI) 18.7 Intake & Output: Intake and Output for Last 24 Hours 03/05/22 03/06/22 03/07/22 23:59 23:59 23:59 Intake Total 981.0 / 981.0 1546.5 / 1546.5 Output Total 200 / 450 800 / 800 Balance 781.0 / 531.0 746.5 / 746.5 Lab / Micro Data Result Diagrams: 03/07/22 05:06 03/07/22 05:06 Labs: Laboratory Results - last 24 hr 03/06/22 15:32: POC Glucose 150 H 03/07/22 05:06: WBC 10.8, RBC 3.63 L, Hgb 12.4 L, Hct 38.1 L, MCV 105.0 H, MCH 34.2 H, MCHC 32.5, RDW Std Deviation 56.0 H, RDW Coeff of Hermann 14.4, Plt Count 181, MPV 10.8, Immature Gran % (Auto) 0.700, Neut % (Auto) 87.8 H, Lymph % (Auto) 7.1 L, [place] % (Auto) 4.3, Eos % (Auto) 0.0, Baso % (Auto) 0.1, Absolute Neuts (auto) 9.5 H, Absolute Lymphs (auto) 0.77 L, Nucleated RBC % 0 03/07/22 05:06: Sodium 150 H, Potassium 3.4 L, Chloride 118 H, Carbon Dioxide 27.0, Anion Gap 5, BUN 26 H, Creatinine 1.17, Estim Creat Clear Calc 41.04, Est GFR (MDRD) Af Amer 80, Est GFR (MDRD) Non-Af 67, BUN/Creatinine Ratio 22.2 H, Glucose 120 H, Calcium 8.1 L, Total Bilirubin 0.30, AST 45 H, ALT 50, Alkaline Phosphatase 84, Total Protein 6.7, Albumin 2.4 L, Globulin 4.3 H, Albumin/Globulin Ratio 0.6 L Micro: Microbiology 03/06/22 08:00 Blood Culture (Wb) - Right Forearm Bacteria Detection (PCR) - Final Coag Negative Staph 03/06/22 08:00 Blood Culture (Wb) - Right Forearm Blood Culture - Preliminary Physical Exam Narrative Physical exam: General: Alert, Oriented, confused, severe dehydrated, HEENT: Atraumatic Oral:Dry oral Mucosa Neck: Supple Lungs:Diminished to auscultation Cardiovascular: HS I+II, regular, no murmurs Abdomen: Bowel Sounds Present, Soft, Non Tender Extremities: No edema Skin: No rashes, No breakdown Neurological: Grossly intact Psych/Mental Status: Appropriate Assessment & Plan Assessment/Plan (1) Acute hypernatremia: (2) Respiratory failure: PLAN: Plan 1.Acute hypoxic respiratory failure secondary to acute COVID-19 infection/aspiration pneumonia Recently diagnosed with COVID-19 infection in the care home Currently on Airvo/BiPAP Chest x-ray and CTA of the chest shows patchy infiltrates Discussed with his legal POA, confirmed CODE STATUS to be DNR CCA, hospice will be consulted Continue on oxygen, dexamethasone, Remdesivir 2. Hypernatremia secondary to dehydration, slightly improved Trend labs in am 3. Seizure disorder, continue on Keppra IV 4. Hypothyroidism, continue Synthroid 5. MRDD/Down syndrome/dementia/anxiety disorder Continue on BuSpar, Aricept, fluoxetine 6. Hyperlipidemia, continue statin 7. GERD, continue PPI 8. DVT prophylaxis?Lovenox subcu DNRCC, hospice Charges/Coding Visit Charges Inpatient E&M: 36285 Subs Hosp L3
--- NOTE | 2022-03-07 18:17 | DCINST_ITS ---
Discharge Instructions Diet Discharge Diet: No restrictions Follow Up Care Test Results: Test results from this visit will be discussed in further detail at your follow- up appointment, if applicable. Discharge Plan Admission Admit Date/Time: 03/06/22 09:16 Primary Reason for Your Visit: Acute respiratory failure/COVID-19 Attending Provider: Mirela Ashley Primary Care Provider: Jeff Herndon Consulting Providers: Lakeshia Jimenez ; Roni Santos ; Coy Finnegan ; Uche Mak ; Maciel Vargas ; Erna Cunningham SOCIAL HUMAN SERVICES ASSISTANTS Discharge Orders/Prescriptions Prescriptions: No Action fluoxetine 20 MG tablet 20 mg PO DAILY Label Comments: mood pravastatin 40 MG tablet 40 mg PO DAILY Label Comments: cholesterol buspirone 5 MG tablet 10 tab PO QHS Label Comments: multivitamin 1 EACH tablet 1 ea PO DAILY buspirone 5 MG tablet 5 mg PO DAILY omeprazole 20 MG capsule 20 mg PO DAILY melatonin 3 MG capsule 3 mg PO QHS donepezil [Aricept] 10 mg Tablet 10 mg PO QHS fluocinolone 0.01 % Oil 1 applic TOPICAL DAILY levothyroxine 75 mcg tablet 75 mcg PO DAILY acetaminophen 325 mg Capsule 650 mg PO Q6H PRN (Reason: PAIN/FEVER) aspirin [Aspirin Low-Strength] 81 mg Tablet,Chewable 81 mg PO DAILY@0800 levetiracetam 750 mg Tablet 750 mg PO BID Referrals / Follow Up: Jeff Herndon MD [Primary Care Provider] - Disposition Disposition (needs filled in before D/C Order can be placed): Hospice in Medical Facility
--- NOTE | 2022-03-07 18:19 | DS.PCM_ITS ---
Providers Date of Admission: 03/06/22 Date of Discharge: 03/09/22 Primary Care Physician: Dr. Jeff Herndon MD Consultations 03/06/22 10:44 Consult: Brass Polisher / Pulmonary Medicine Routine Consulting Provider: Pulmonary Medicine tomasz Largo Reason for Consult: COVID, resp failure EMERGENT Consult: No MD Notified: Yes Date Notified: 03/06/22 Time Notified: 11:01 Method of Notification: Text Reason For Visit: ACUTE RESPIRATORY FAILURE Diagnosis Discharge Diagnosis (1) Acute hypernatremia: Status: Acute Code(s): E87.0 - Hyperosmolality and hypernatremia (2) Respiratory failure: Status: Acute Code(s): J96.90 - Respiratory failure, unspecified, unspecified whether with hypoxia or hypercapnia Plan 1.Acute hypoxic respiratory failure secondary to acute COVID-19 infe ction/aspiration pneumonia 2. Hypernatremia secondary to dehydration 3. Seizure disorder 4. Hypothyroidism 5. MRDD/Down syndrome/dementia/anxiety disorder 6. Hyperlipidemia 7. GERD Medications at Discharge Home Medications fluoxetine 20 mg tablet 20 mg PO DAILY mood 11/06/13 pravastatin 40 mg tablet 40 mg PO DAILY cholesterol 11/23/13 buspirone 5 mg tablet 10 tab PO QHS anxiety 04/18/17 buspirone 5 mg tablet 5 mg PO DAILY ANXIETY 01/09/18 multivitamin 1 ea PO DAILY SUPPLEMENT 01/09/18 omeprazole 20 mg capsule,delayed release 20 mg PO DAILY GERD 01/09/18 melatonin 3 mg capsule 3 mg PO QHS INSOMNIA 12/26/19 donepezil 10 mg tablet (Aricept) 10 mg PO QHS dementia 10/22/20 fluocinolone 0.01 % topical body oil 1 applic topical DAILY DRY SKIN 10/16/21 levothyroxine 75 mcg tablet 75 mcg PO DAILY THYROID 12/10/21 acetaminophen 325 mg capsule 650 mg PO Q6H PRN PAIN/FEVER 03/04/22 aspirin 81 mg chewable tablet 81 mg PO DAILY@0800 BLOOD THINNER 03/06/22 levetiracetam 750 mg tablet 750 mg PO BID SEIZURES 03/06/22 Hospital Course Summary of Care Provided Minutes Spent on Discharge: 40 Hospital Course: 67-year-old male with past medical history of MRDD/Down syndrome, resident in the [facility], who comes in with progressive shortness of breath. Patient was recently diagnosed with COVID-19 infection. He was found to be hypoxic with oxygen sats 66% on room air. This improved with his present on 4 L. The EMS were called. Patient did require nonrebreather mask, 15 L. Patient was found to have low-grade fever. His vitals in the ED showed relative hypotension. Chest x-ray showed new patchy infiltrates the lung base. CTA of the chest showed increased markings in the lung bases and history of bibasilar atelectasis and or early infiltrates as well in the superior segment of the left lower lobe and right lower lobe. Patient did have evidence of bronchiectasis in the right hilum and right inferior hilar regions. Patient was admitted to the progressive care unit and managed as acute hypoxic respiratory failure secondary to acute COVID-19 infection/aspiration pneumonia. He was started on IV Zosyn. Brass Polisher was consulted. He was started on IV remdesivir and dexamethasone. Patient's respiratory status however worsened. He also was kept n.p.o. on account of dysphagia. Patient was transition to Airvo and liters of BiPAP. Upon further discussion with patient's legal guardian, hospice was consulted. Patient's discharge to inpatient hospice unit was delayed because patient did require high amounts of oxygen. Patient was able to be weaned down to 30 L of oxygen for discharge. Physical Exam Narrative Physical exam: General: Alert,lethargic, on Bipap, severe dehydrated, HEENT: Atraumatic Oral:Dry oral Mucosa Neck: Supple Lungs:Diminished to auscultation Cardiovascular: HS I+II, regular, no murmurs Abdomen: Bowel Sounds Present, Soft, Non Tender Extremities: No edema Skin: No rashes, No breakdown Neurological: Grossly intact Psych/Mental Status: Appropriate Weight / BMI Weight Weight: 46.1 kg Body Mass Index (BMI) 18.7 ABG / Lab / Microbiology Data Result Diagrams: 03/08/22 04:40 03/08/22 04:40 Laboratory: Laboratory Results - last 24 hr 03/06/22 15:32: POC Glucose 150 H 03/07/22 05:06: WBC 10.8, RBC 3.63 L, Hgb 12.4 L, Hct 38.1 L, MCV 105.0 H, MCH 34.2 H, MCHC 32.5, RDW Std Deviation 56.0 H, RDW Coeff of Hermann 14.4, Plt Count 181, MPV 10.8, Immature Gran % (Auto) 0.700, Neut % (Auto) 87.8 H, Lymph % (Auto) 7.1 L, [place] % (Auto) 4.3, Eos % (Auto) 0.0, Baso % (Auto) 0.1, Absolute Neuts (auto) 9.5 H, Absolute Lymphs (auto) 0.77 L, Nucleated RBC % 0 03/07/22 05:06: Sodium 150 H, Potassium 3.4 L, Chloride 118 H, Carbon Dioxide 27.0, Anion Gap 5, BUN 26 H, Creatinine 1.17, Estim Creat Clear Calc 41.04, Est GFR (MDRD) Af Amer 80, Est GFR (MDRD) Non-Af 67, BUN/Creatinine Ratio 22.2 H, Glucose 120 H, Calcium 8.1 L, Total Bilirubin 0.30, AST 45 H, ALT 50, Alkaline Phosphatase 84, Total Protein 6.7, Albumin 2.4 L, Globulin 4.3 H, Albumin/Globulin Ratio 0.6 L Microbiology: Microbiology 03/06/22 08:00 Blood Culture (Wb) - Right Forearm Bacteria Detection (PCR) - Final Coag Negative Staph 03/06/22 08:00 Blood Culture (Wb) - Right Forearm Blood Culture - Preliminary D/C Instructions Discharge Diet: No restrictions Meaningful Use Info Meaningful Use Diagnoses (Choose all that apply): None applicable Discharge Plan Admission Admit Date/Time: 03/06/22 09:16 Primary Reason for Your Visit: Acute respiratory failure/COVID-19 infection Attending Provider: Mirela Ashley Primary Care Provider: Jeff Herndon Consulting Providers: Lakeshia Jimenez ; Roni Santos ; Coy Finnegan ; Uche Mak ; Maciel Vargas ; Erna Cunningham COLLEGE SPORTS ASSISTANT ; Estela Kilgore ; Nicolas Peck ; Divina Akbar ; Crissy Davila ; Isabelle Hickman COLLEGE SPORTS ASSISTANT Discharge Orders/Prescriptions Prescriptions: No Action fluoxetine 20 MG tablet 20 mg PO DAILY Label Comments: mood pravastatin 40 MG tablet 40 mg PO DAILY Label Comments: cholesterol buspirone 5 MG tablet 10 tab PO QHS Label Comments: multivitamin 1 EACH tablet 1 ea PO DAILY buspirone 5 MG tablet 5 mg PO DAILY omeprazole 20 MG capsule 20 mg PO DAILY melatonin 3 MG capsule 3 mg PO QHS donepezil [Aricept] 10 mg Tablet 10 mg PO QHS fluocinolone 0.01 % Oil 1 applic TOPICAL DAILY levothyroxine 75 mcg tablet 75 mcg PO DAILY acetaminophen 325 mg Capsule 650 mg PO Q6H PRN (Reason: PAIN/FEVER) aspirin [Aspirin Low-Strength] 81 mg Tablet,Chewable 81 mg PO DAILY@0800 levetiracetam 750 mg Tablet 750 mg PO BID Referrals / Follow Up: Jeff Herndon MD [Primary Care Provider] - Disposition Disposition (needs filled in before D/C Order can be placed): Hospice in Medical Facility Charges/Coding Visit Charges Inpatient E&M: 04007 Disch Hosp
--- NOTE | 2022-03-07 18:36 | NURSING ---
Hospiceunable to take covid patients on bipap, per Josephine. Must be [address] Ashley informed. Placing orders for SD status and hospice orders
--- NOTE | 2022-03-07 20:39 | PCM.HOSP.N ---
Hospitalist Note Patient chart with evidence of planned hospice transition, now DNR CC, awaiting formal hospice evaluation. Will place hospice order set for patient comfort.
[2022-03-07] MEDS: morphine (oral solution) 10MG/0.5ML Syringe 5 MG SL/PO (22:17)
[2022-03-08] VITALS (21 sets, daily range): BP systolic 86–127; BP diastolic 48–73; PULSE 48–86; RESP 12–24; TEMP 36.1–37.2; O2SAT 89–99
[2022-03-08 05:19] LABS: Absolute Lymphocyte Count 0.69 X10^3/uL (0.83-4.51); Absolute Neutrophil Count 13.9 X10^3/uL (2.0-7.7); Basophil# 0.01 X10^3/uL; Basophil% 0.1 % (0-1); Hematocrit 36.5 % (40-54); Hemoglobin 11.9 g/dL (13.0-16.5); Lymphocyte # 0.69 X10^3/ul (0.83-4.51); Lymphocyte % 4.4 % (19-41); Mean Corp Hgb Conc 32.6 g/dL (32-36); Mean Corpuscular Hgb 33.9 pg (27.0-32.0); Mean Platelet Vol. 11.3 fl (6.2-12.0); Monocyte# 0.82 X10^3/uL; Monocyte% 5.3 % (0-10); NRBC Flagged by Analyzer 0 % (0-5); Neutrophil # 13.89 X10^3/uL (2.7-7.7); Neutrophil % 89.5 % (47-70); Platelet Count 212 K/mm3 (150-450); RBC Distribution Width CV 14.4 % (11.6-14.6); RBC Distribution Width SD 54.5 fl (35.1-43.9); Red Blood Count 3.51 M/mm3 (4.6-6.2); White Blood Count 15.5 K/mm3 (4.4-11.0)
[2022-03-08 05:53] LABS: ALB/GLOB Ratio 0.5 RATIO (0.9-2.4); AST(SGOT) 37 U/L (15-37); Alanine Aminotransfer ALT/SGPT 45 U/L (16-61); Albumin, Serum 2.3 g/dL (3.2-5.0); Alkaline Phosphatase 89 U/L (45-117); Anion Gap 5 (5-15); BUN 31 mg/dL (7-18); BUN/Creat Ratio 30.1 RATIO (10-20); Calcium,Total 8.1 mg/dL (8.5-10.1); Chloride 122 mmol/L (98-107); Creatinine, Serum 1.03 mg/dL (0.70-1.30); EST Glomerular Filtration Rate 77 mL/min (>60); Est Glom Filt Rate - Afr Amer 93 mL/min (>60); Estimated Creatinine Clearance 46.62 ml/min; Globulin 4.2 g/dL (2.2-4.2); Glucose 105 mg/dL (74-106); Potassium 3.8 mmol/L (3.5-5.1); Protein, Total 6.5 g/dL (6.4-8.2); Sodium Level 152 mmol/L (136-145)
--- NOTE | 2022-03-08 07:15 | NURSING ---
Documentation reviewed with Devante MCCARTNEY
--- NOTE | 2022-03-08 10:08 | PN.CC_ITS ---
Assessment & Plan Assessment/Plan (1) Respiratory failure: (2) COVID-19: (3) Debility: PLAN: Plan RECOMMENDATIONS: 1. Consider discontinuation of BiPAP 2. Consider palliative medications while in the hospital 3. Wean supplemental oxygen as tolerated 4. Gentle hydration given hyponatremia 5. Continue Remdesivir (03/10/2022) and Decadron (03/16/2022) IMPRESSIONS: 1. Acute hypoxic respiratory failure secondary to COVID-19/bronchiectasis Patient with significant hypoxia at this time. Patient does have groundglass opacities more consistent with a viral etiology. However, patient also has right lower lobe bronchiectasis and would be at risk for a superimposed bacterial infection. Some concern for Pseudomonas, so will transition to Zosyn therapy for antibiotics. Patient has been initiated on remdesivir and Decadron. By process of elimination, patient will need to have paxlovid within 5 days making onset less than 10 days previously. We will have to be very careful treating patient's hypernatremia with free water as this does increase the risk of hypoxic respiratory failure. Patient appears to be tolerating BiPAP at this time. However, it is not clear that this is doing more than prolonging medical therapy. Consider transition to nasal cannula or room air with symptomatic control. Defer to hospitalist. 2. Hypernatremia/hyperchloremia secondary to dehydration Patient placed on D5W. We will have to watch fluid status closely. Increase free water does increase the risk of worsening problem #1. 3. Debility/seizure disorder/MRDD/Down's Complicates care, management, recovery and prognosis. Patient confirmed to be a DNR Comfort Care only. Okay to continue baseline seizure medications. No seizure activity has been noted. Subjective Subjective Patient confirmed to be comfort care only yesterday by hospitalist. Patient was unable to go to inpatient hospice secondary to logistic issues. Patient was placed on BiPAP and Roxanol and appears to be tolerating this well. Patient is requiring significant FiO2 to maintain saturations, but appears to be comfortable. Patient did open eyes to voice, but not following commands. Objective Data Objective Data Vital Signs: Vital Signs Temp Pulse Resp BP Pulse Ox O2 Del Method O2 Flow Rate 36.7 C 80 20 H 101/64 94 Bi-pap 60 03/08/22 04:00 03/08/22 07:36 03/08/22 07:36 03/08/22 04:00 03/08/22 07:36 03/08/22 04:00 03/07/22 18:00 FiO2 85 03/08/22 07:36 Oxygen Flow Rate (L/min) 60 Oxygen Delivery Method Bi-pap Weight: 48.6 kg Body Mass Index (BMI) 18.7 Intake & Output: Intake and Output for Last 24 Hours 03/06/22 03/07/22 03/08/22 23:59 23:59 23:59 Intake Total 981.0 / 981.0 1654.0 / 1654.0 50 / 50 Output Total 200 / 450 1000 / 1300 900 / 900 Balance 781.0 / 531.0 654.0 / 354.0 -850 / -850 Lab / Micro Data Attestation: I reviewed the patient's lab results. Result Diagrams: 03/08/22 04:40 03/08/22 04:40 Labs: Laboratory Results - last 24 hr 03/08/22 04:40: WBC 15.5 H, RBC 3.51 L, Hgb 11.9 L, Hct 36.5 L, MCV 104.0 H, MCH 33.9 H, MCHC 32.6, RDW Std Deviation 54.5 H, RDW Coeff of Hermann 14.4, Plt Count 212, MPV 11.3, Immature Gran % (Auto) 0.700, Neut % (Auto) 89.5 H, Lymph % (Auto) 4.4 L, [place] % (Auto) 5.3, Eos % (Auto) 0.0, Baso % (Auto) 0.1, Absolute Neuts (auto) 13.9 H, Absolute Lymphs (auto) 0.69 L, Nucleated RBC % 0 03/08/22 04:40: Sodium 152 H, Potassium 3.8, Chloride 122 H, Carbon Dioxide 25.0, Anion Gap 5, BUN 31 H, Creatinine 1.03, Estim Creat Clear Calc 46.62, Est GFR (MDRD) Af Amer 93, Est GFR (MDRD) Non-Af 77, BUN/Creatinine Ratio 30.1 H, Glucose 105, Calcium 8.1 L, Total Bilirubin 0.40, AST 37, ALT 45, Alkaline Phosphatase 89, Total Protein 6.5, Albumin 2.3 L, Globulin 4.2, Albumin/Globulin Ratio 0.5 L Micro: Microbiology 03/06/22 03:07 Blood Culture (Wb) - Left Forearm Blood Culture - Preliminary No growth in 48 hours. 03/06/22 08:00 Blood Culture (Wb) - Right Forearm Bacteria Detection (PCR) - Final Coag Negative Staph 03/06/22 08:00 Blood Culture (Wb) - Right Forearm Blood Culture - Preliminary Physical Exam Const alert Constitutional Narrative: On BiPAP therapy during my evaluation General Appearance: ill appearing and frail; Negative for in distress HEENT normocephalic and head/scalp atraumatic Eyes PERRL and no scleral icterus Neck full ROM and no lymphadenopathy Resp Resp Narrative: Appears comfortable on BiPAP Effort and Inspection: Negative for tachypneic or actively coughing Auscultation: diminished lung sounds; Negative for rales, rhonchi or wheezes Cardio regular rate, regular rhythm, S1 normal heart sound, S2 normal heart sound, no murmurs, no rub and no gallops GI normal to inspection, nondistended, normoactive bowel sounds Extremity no clubbing, cyanosis or edema Skin no rashes or lesions noted Neuro moves all extremities Psych Mood & Affect: flat affect Charges/Coding Visit Charges Inpatient E&M: 21780 Subs Hosp L2
[2022-03-08] MEDS: dexAMETHasone 10 MG/ML Vial 6 MG IV (10:15)
[2022-03-08] MEDS: Enoxaparin 40 MG/0.4 ML Syringe SC (10:16)
[2022-03-08] MEDS: morphine (oral solution) 10MG/0.5ML Syringe 5 MG SL/PO ×2 (10:17→14:07)
--- NOTE | 2022-03-08 12:19 | CASEMGMT ---
KYLAH spoke with Josephine at Hospice. Josephine said that if patient is off bipap and can tolerate 30L or less they could take him. SW let her know patient is currently on bipap with a flow rate of 60L. Josephine suggested physician give patient comfort meds to help him relax a little and maybe be able to tolerate less O2. KYLAH will talk with physician. Erlinda Villaseñor CULINARY ASSISTANT DANY
--- NOTE | 2022-03-08 17:26 | PN.HOSP_ITS ---
Subjective Subjective Follow-up on acute hypoxic respiratory failure/Acute COVID-19 infection: Patient was seen and examined. Patient had remained on BiPAP overnight. He was more lethargic. He was unable to be transported to the inpatient hospice facility as the oxygen capabilities on the transporting vehicle was limited to 30L of oxygen. Hospice/comfort order set being utilized. Objective Data Objective Data Vital Signs: Vital Signs Temp Pulse Resp BP Pulse Ox O2 Del Method O2 Flow Rate 98.9 F 60 22 H 127/48 H 96 Bi-pap 60 03/08/22 14:00 03/08/22 14:46 03/08/22 14:00 03/08/22 14:00 03/08/22 14:00 03/08/22 14:00 03/08/22 14:00 FiO2 85 03/08/22 14:00 Oxygen Flow Rate (L/min) 60 Oxygen Delivery Method Bi-pap Weight: 48.6 kg Body Mass Index (BMI) 18.7 Intake & Output: Intake and Output for Last 24 Hours 03/06/22 03/07/22 03/08/22 23:59 23:59 23:59 Intake Total 981.0 / 981.0 1654.0 / 1654.0 457.5 / 457.5 Output Total 200 / 450 1000 / 1300 1200 / 1200 Balance 781.0 / 531.0 654.0 / 354.0 -742.5 / -742.5 Lab / Micro Data Result Diagrams: 03/08/22 04:40 03/08/22 04:40 Labs: Laboratory Results - last 24 hr 03/08/22 04:40: WBC 15.5 H, RBC 3.51 L, Hgb 11.9 L, Hct 36.5 L, MCV 104.0 H, MCH 33.9 H, MCHC 32.6, RDW Std Deviation 54.5 H, RDW Coeff of Hermann 14.4, Plt Count 212, MPV 11.3, Immature Gran % (Auto) 0.700, Neut % (Auto) 89.5 H, Lymph % (Auto) 4.4 L, [place] % (Auto) 5.3, Eos % (Auto) 0.0, Baso % (Auto) 0.1, Absolute Neuts (auto) 13.9 H, Absolute Lymphs (auto) 0.69 L, Nucleated RBC % 0 03/08/22 04:40: Sodium 152 H, Potassium 3.8, Chloride 122 H, Carbon Dioxide 25.0, Anion Gap 5, BUN 31 H, Creatinine 1.03, Estim Creat Clear Calc 46.62, Est GFR (MDRD) Af Amer 93, Est GFR (MDRD) Non-Af 77, BUN/Creatinine Ratio 30.1 H, Glucose 105, Calcium 8.1 L, Total Bilirubin 0.40, AST 37, ALT 45, Alkaline Phosphatase 89, Total Protein 6.5, Albumin 2.3 L, Globulin 4.2, Albumin/Globulin Ratio 0.5 L Micro: Microbiology 03/06/22 08:00 Blood Culture (Wb) - Right Forearm Bacteria Detection (PCR) - Final Coag Negative Staph 03/06/22 08:00 Blood Culture (Wb) - Right Forearm Blood Culture - Preliminary 03/06/22 03:07 Blood Culture (Wb) - Left Forearm Blood Culture - Preliminary No growth in 48 hours. Physical Exam Narrative Physical exam: General: Alert,lethargic, on Bipap, severe dehydrated, HEENT: Atraumatic Oral:Dry oral Mucosa Neck: Supple Lungs:Diminished to auscultation Cardiovascular: HS I+II, regular, no murmurs Abdomen: Bowel Sounds Present, Soft, Non Tender Extremities: No edema Skin: No rashes, No breakdown Neurological: Grossly intact Psych/Mental Status: Appropriate Assessment & Plan Assessment/Plan (1) Acute hypernatremia: (2) Respiratory failure: PLAN: Plan 1.Acute hypoxic respiratory failure secondary to acute COVID-19 infection/aspiration pneumonia, worsening Remains on Bipap, Hospice/comfort orders ongoing Recently diagnosed with COVID-19 infection in the residential Chest x-ray and CTA of the chest shows patchy infiltrates Will discontinue IV Zosyn and Remdesivir 2.Rest of medical conditions - MRDD/Hypothyroidism/Seizure disorder/Hyperlipidemia Will discontinue associated medications. Charges/Coding Visit Charges Inpatient E&M: 13838 [facility] Hosp L3
[2022-03-09] MEDS: Glycerin/Hypromellose/PEG400 15 ml Bottle 2 DRP EACH EYE (00:54)
[2022-03-09 03:00] VITALS: PULSE 48
[2022-03-09] MEDS: morphine (oral solution) 10MG/0.5ML Syringe 5 MG SL/PO (06:38)
[2022-03-09 06:59] VITALS: PULSE 71
--- NOTE | 2022-03-09 07:00 | NURSING ---
Documentation reviewed with Devante MCCARTNEY
[2022-03-09 07:40] VITALS: O2SAT 91
[2022-03-09 08:40] VITALS: O2SAT 92
[2022-03-09 09:11] LABS: Bedside Glucose 82 mg/dL (74-106)
--- NOTE | 2022-03-09 09:29 | PCM.PN.INT ---
Assessment & Plan Assessment/Plan (1) Respiratory failure: (2) COVID-19: (3) Debility: PLAN: Plan RECOMMENDATIONS: 1. Consider discontinuation of BiPAP 2. Consider palliative medications while in the hospital 3. Wean supplemental oxygen as tolerated 4. Gentle hydration given hyponatremia 5. Continue Remdesivir (03/10/2022) and Decadron (03/16/2022) IMPRESSIONS: 1. Acute hypoxic respiratory failure secondary to COVID-19/bronchiectasis Patient with significant hypoxia at this time. Patient does have groundglass opacities more consistent with a viral etiology. However, patient also has right lower lobe bronchiectasis and would be at risk for a superimposed bacterial infection. Some concern for Pseudomonas, so will transition to Zosyn therapy for antibiotics. Patient actually slightly improved on current therapy. Given goals of therapy, would not recommend escalation. Symptoms should be treated if they arise. If patient becomes too uncomfortable, aggressive control of symptoms would be most appropriate from my perspective. Patient could potentially go to hospice on current oxygen requirements 2. Hypernatremia/hyperchloremia secondary to dehydration Patient placed on D5W. We will have to watch fluid status closely. Increase free water does increase the risk of worsening problem #1. 3. Debility/seizure disorder/MRDD/Down's Complicates care, management, recovery and prognosis. Patient confirmed to be a DNR Comfort Care only. Okay to continue baseline seizure medications. No seizure activity has been noted. Subjective Subjective Patient nonverbal, but appears more comfortable off BiPAP. Able to be moved to nonrebreather overnight. Objective Data Objective Data Vital Signs: Vital Signs Temp Pulse Resp BP Pulse Ox O2 Del Method O2 Flow Rate 36.5 C L 71 13 104/73 92 High Flow 15 03/08/22 22:25 03/09/22 06:59 03/08/22 22:25 03/08/22 22:25 03/09/22 08:40 03/09/22 08:40 03/09/22 08:40 FiO2 55 03/08/22 22:25 Oxygen Flow Rate (L/min) 15 Oxygen Delivery Method High Flow Weight: 49.3 kg Body Mass Index (BMI) 18.7 Intake & Output: Intake and Output for Last 24 Hours 03/07/22 03/08/22 03/09/22 23:59 23:59 23:59 Intake Total 1654.0 / 1654.0 507.5 / 507.5 107.5 / 107.5 Output Total 1000 / 1300 1350 / 1650 550 / 550 Balance 654.0 / 354.0 -842.5 / -1142.5 -442.5 / -442.5 Lab / Micro Data Attestation: I reviewed the patient's lab results. Result Diagrams: 03/08/22 04:40 03/08/22 04:40 Labs: Laboratory Results - last 24 hr 03/09/22 08:33: POC Glucose 82 Micro: Microbiology 03/06/22 08:00 Blood Culture (Wb) - Right Forearm Bacteria Detection (PCR) - Final Coag Negative Staph 03/06/22 08:00 Blood Culture (Wb) - Right Forearm Blood Culture - Final Coag Negative Staph 03/06/22 03:07 Blood Culture (Wb) - Left Forearm Blood Culture - Preliminary No growth in 48 hours. Physical Exam Const alert General Appearance: ill appearing and frail; Negative for in distress HEENT normocephalic and head/scalp atraumatic Eyes PERRL and no scleral icterus Neck full ROM and no lymphadenopathy Resp Resp Narrative: Appears comfortable on BiPAP Effort and Inspection: Negative for tachypneic or actively coughing Auscultation: diminished lung sounds; Negative for rales, rhonchi or wheezes Cardio regular rate, regular rhythm, S1 normal heart sound, S2 normal heart sound, no murmurs, no rub and no gallops GI normal to inspection, nondistended, normoactive bowel sounds Extremity no clubbing, cyanosis or edema Skin no rashes or lesions noted Neuro moves all extremities Psych Activity / Motor Behavior: restless Mood & Affect: anxious and flat affect Charges/Coding Visit Charges Inpatient E&M: 61627 Subs Hosp L2
--- NOTE | 2022-03-09 09:30 | CASEMGMT ---
Patient is on 15L non-rebreather. Physician asked SW to contact Hospice to get patient to the inpatient unit. KYLAH called Hospice and spoke with Olivia who is covering for Josephine today. SW faxed updated information to Hospice. KYLAH received a call from Jessie at Hospice. SW answered her questions. Jessie said they will get in touch with SW with more updates. RN said patient is now on 15L NC and 15L non-rebreather. KYLAH called Jessie at [facility] and let her know this information. Jessie said RN Cindy will be coming to evaluate patient for the inpatient unit. KYLAH asked why patient wouldn't automatically qualify due to his O2 requirements. Jessie said the RN has to evaluate. Jessie called again and asked patient's sats on the 15 and 15. KYLAH let her know patient is 89. Cindy should be here anytime. Erlinda Villaseñor [employer]PER[employer]
[2022-03-09 09:46] VITALS: BP 109/87; PULSE 64; RESP 18; TEMP 36.6; O2SAT 95
[2022-03-09] MEDS: 0.9% Saline Lock 10 ML Syringe IV (09:49)
[2022-03-09] MEDS: dexAMETHasone 10 MG/ML Vial 6 MG IV (09:49)
--- NOTE | 2022-03-09 13:06 | CASEMGMT ---
Addendum entered by Erlinda Villaseñor 03/09/22 13:09: SW called patient's guardian Renetta and let her know about patient going to the inpatient unit and will get picked up at 130. KYLAH also notified Mar[facility] low[facility] [place]. Erlinda SAENZ Original Note: Hospice nurse evaluated patient and he was approved for the inpatient unit. Hospice will be here to chart picker patient at 130. SW notified RN and physician. Plan: d/c to [facility]. Hospice transported via their transportation van. Erlinda SAENZ
== END 2022-03-09 14:06 | disposition hospice, inpatient (51) | DRG 177 ==
LOC: ED 09:12 → PCU 11:48
PROVIDERS: Admitting Provider Internal Medicine; Emergency Provider Emergency Medicine; PCP Family Medicine; Visit Provider Internal Medicine
DX: U07.1 COVID-19 (principal); J96.01 Acute respiratory failure with hypoxia; J69.0 Pneumonitis due to inhalation of food and vomit; J12.82 Pneumonia due to coronavirus disease 2019; J47.0 Bronchiectasis with acute lower respiratory infection; E87.0 Hyperosmolality and hypernatremia; I95.9 Hypotension, unspecified; F03.90 Unspecified dementia, unspecified severity, without behavioral disturbance, psychotic disturbance, mood disturbance, and anxiety; G40.909 Epilepsy, unspecified, not intractable, without status epilepticus; E87.8 Other disorders of electrolyte and fluid balance, not elsewhere classified; E78.5 Hyperlipidemia, unspecified; E03.9 Hypothyroidism, unspecified; K21.9 Gastro-esophageal reflux disease without esophagitis; E86.0 Dehydration; F41.9 Anxiety disorder, unspecified; Z79.82 Long term (current) use of aspirin; Q90.9 Down syndrome, unspecified; Z79.52 Long term (current) use of systemic steroids; Z66 Do not resuscitate; Z79.899 Other long term (current) drug therapy; Z79.890 Hormone replacement therapy; F79 Unspecified intellectual disabilities; F32.A Depression, unspecified
CPT/HCPCS: 36415; 36600; 51702; 71045; 71275; 80053; 81001; 82803; 82962; 83605; 83880; 84484; 85025; 85610; 87040; 87149; 92610; 93005; 94003; 94660; 94762; 95819; 96360; 96361; 97162; 97166; 99251; 99285; J7030; J7040; J7050; Q9967; A4216; G0463; J0248